=== PATIENT | female | born 1940 | race Caucasian/White ===

== ENCOUNTER → 2017-10-20 | Outpatient (CLI) | payer MEDICARE ==
--- NOTE | 2017-10-20 11:42 | USB ---
Reason for exam: clinical finding. History: Patient is postmenopausal and history of other cancer. Took estrogen for 1 year 6 months. Indicated problem(s): pain in the left breast. Physical Findings: Nurse Summary: Patient complains of left upper inner breast pain x 3 weeks, 0.5cm pea sized nodule palpated left breast 10 o'clock (nurse mj). US Breast LT Left complete breast ultrasound includes all four quadrants, the retroareolar region and axilla. Finding demonstrates a 4.4 x 0.8cm linear echogenic shadowing artifact/structure at 10 o'clock. It has the appearance of a foreign body. These results were verbally communicated with the patient and result sheet given to the patient on 10/20/17. ASSESSMENT: Incomplete: need additional imaging evaluation, BI-RAD 0 RECOMMENDATION: Special view mammogram of both breasts. Manage on a clinical basis with regard to bilateral breast pain.
== END | disposition home or self-care (01) ==
LOC: RADUSWWP 10:04
PROVIDERS: ATTEND Family Medicine
DX: R07.89 Other chest pain (principal)

== ENCOUNTER 2017-10-26 10:55 | Day surgery (SDC) | payer MEDICARE ==
[2017-10-22 17:14] VITALS: BMI 23.1
[~2017-10-26 10:55] MED LIST: SODIUM CHLORIDE 0.9% 1,000 ML IV SCH
[2017-10-26] MEDS ORDERED: ceFAZolin IN SWFI 2 GM/20 ML SYRINGE IVP ONE (11:00)
[2017-10-26 11:49] VITALS: TEMP 98.3
[2017-10-26] MEDS ORDERED: MIDAZOLAM 2 MG/2 ML VIAL IV ONE (12:45)
[2017-10-26] MEDS ORDERED: LIDOCAINE 1% INJ 10MG/ML (20 ML MDV) SQ ONE (13:02)
[2017-10-26] MEDS ORDERED: fentaNYL (PF) 50 MCG/ML 2 ML AMP IV ONE (13:05)
[2017-10-26] MEDS ORDERED: NITROGLYCERIN SL TABS 0.4 MG TAB SUBLINGUAL ONE (13:05)
[2017-10-26 15:43] VITALS: BP 118/62; PULSE 74; RESP 16
[2017-10-26] MEDS ORDERED: ceFAZolin 1,000 MG in DEXTROSE/WATER 1 50ML.BAG IVPB ONE (16:00)
--- NOTE | 2017-10-26 16:09 | PCN ---
PROCEDURE NOTE DATE OF SERVICE: 10/26/2017. PROCEDURES: Explantation of loop recorder. PERFORMED BY: Dr. Taqueria Camacho. ANESTHESIA: Moderate conscious sedation time was 27 minutes. The patient was administered Versed and fentanyl and oxygen saturation, hemodynamics and EKG were monitored closely. CLINICAL INFORMATION: Mrs. Rosalba Dodson is a 77-year-old lady with a history of hypertension, hyperlipidemia, dementia, and also previous history of syncope for which a loop recorder was placed. There was no evidence of any significant arrhythmia based on long- term monitoring. She has been having uncomfortable sensation overlying the site of the loop recorder and psychologically she did not want a foreign body in her system and so she wanted it taken out. After repeated explanations, she was brought in for the procedure. Risks, benefits, options were explained. PROCEDURE NOTE: Under local anesthesia and IV sedation and under fluoroscopic guidance, a linear inch and a half incision was made overlying the loop recorder. Blunt dissection was carried out and loop recorder was carefully explanted. The patient received intravenous antibiotic during the incision. The wound was then closed in 2 layers. Good hemostasis was secured. Patient tolerated procedure well without complication. Successful explantation of loop recorder was performed uneventfully without complication and with very trivial minimal blood loss. The patient will be seen in the office in one week. Patient will be administered antibiotic for 4 days, Kefzol 1 g will be given in about 4 hours and she will be given Keflex 500 mg t.i.d. for 3-4 days. MMODL / IJN: [id number] /
== END 2017-10-26 16:20 | disposition home or self-care (01) ==
LOC: CATHEP 10:55
PROVIDERS: ATTEND Internal Medicine Interventional Cardiology
DX: R55 Syncope and collapse (principal); I10 Essential (primary) hypertension; E78.5 Hyperlipidemia, unspecified; F03.90 Unspecified dementia, unspecified severity, without behavioral disturbance, psychotic disturbance, mood disturbance, and anxiety; Z88.1 Allergy status to other antibiotic agents
CPT/HCPCS: 33284; J2250; J2001; J3010; J0690 ×2

== ENCOUNTER 2018-01-29 09:14 | Emergency (ER) | payer MEDICARE ==
[2018-01-29 09:22] VITALS: TEMP 98
[2018-01-29] MEDS ORDERED: IBUPROFEN 400 MG TAB PO STA (09:37)
[2018-01-29] MEDS ORDERED: ACETAMINOPHEN TAB 500 MG TAB PO STA (09:37)
--- NOTE | 2018-01-29 09:40 | ED ---
General Adult HPI - General Chief complaint: Fall Stated complaint: fall at home yesterday; hx of hip surgery Time Seen by Provider: 01/29/18 09:19 Source: patient, family, RN notes reviewed Mode of arrival: ambulatory Limitations: no limitations - History of Present Illness Initial comments: Patient is a pleasant 77-year-old female presenting to the emergency department following a fall. Incident occurred yesterday evening. Patient was taken off her holiday sweater and lost her balance. Patient states she landed on her left hip. Patient states she was able to walk to the bathroom on her own last night however this morning she needs assistance. Discomfort is only with movement. Patient does have history of previous left ORIF of the hip. This was approximately 2 years ago. Patient denies any other area of injury. No head injury or loss of consciousness. No neck or back pain. No chest pain or dyspnea. No abdominal pain. - Related Data Home Medications Medication Instructions Recorded Confirmed Levothyroxine Sodium [Synthroid] 75 mcg PO DAILY 08/10/13 01/29/18 Aspirin EC [Ecotrin Low Dose] 81 mg PO HS 12/24/15 01/29/18 Atorvastatin [Lipitor] 80 mg PO HS 12/24/15 01/29/18 Cholecalciferol [Vitamin D3] 4,000 unit PO DAILY 12/24/15 01/29/18 Multivit with Calcium,Iron,Min 1 tab PO DAILY 10/22/17 01/29/18 [Women's Multivitamin] Allergies Allergy/AdvReac Type Severity Reaction Status Date / Time azithromycin AdvReac Nausea & Verified 01/29/18 09:28 [From Zithromax Z-Gomez] Vomiting INDOOR ENVIRONMENTAL Allergy Itching Uncoded 01/29/18 09:22 ALLERGIES Review of Systems ROS Statement: Those systems with pertinent positive or pertinent negative responses have been documented in the HPI. ROS Other: All systems not noted in ROS Statement are negative. Constitutional: Denies: fever Eyes: Denies: eye pain ENT: Denies: ear pain Respiratory: Denies: cough Cardiovascular: Denies: chest pain Endocrine: Denies: fatigue Gastrointestinal: Denies: abdominal pain Genitourinary: Denies: dysuria Musculoskeletal: Denies: back pain Skin: Denies: rash Neurological: Denies: headache, weakness Past Medical History Past Medical History: CVA/TIA, Memory Impairment, Thyroid Disorder Additional Past Medical History / Comment(s): chronic back pain, had stroke during back surgery-affected memory, chronic diarrhea, balance wobbly since hip surgery Last Myocardial Infarction Date:: 2014 History of Any Multi-Drug Resistant Organisms: None Reported Past Surgical History: Appendectomy, Back Surgery, Orthopedic Surgery, Tonsillectomy Additional Past Surgical History / Comment(s): shoulder skin ca, knee surgery to left, ORIF left hip 2015, loop recorder insertion Past Anesthesia/Blood Transfusion Reactions: Postoperative Nausea & Vomiting ( PONV) Additional Past Anesthesia/Blood Transfusion Reaction / Comment(s): claustrophobia, trouble waking up Past Psychological History: No Psychological Hx Reported Smoking Status: Current every day smoker Past Alcohol Use History: Daily Past Drug Use History: None Reported - Past Family History Mother Family Medical History: Renal Disease Father Family Medical History: Cancer Additional Family Medical History / Comment(s): skin cancer, at age 93 from old age General Exam Limitations: no limitations General appearance: alert, in no apparent distress Head exam: Present: atraumatic, normocephalic Eye exam: Present: normal appearance Neck exam: Present: normal inspection. Absent: tenderness Respiratory exam: Present: normal lung sounds bilaterally Cardiovascular Exam: Present: regular rate, normal rhythm Expanded Peripheral pulses: 2+: Posterior Tibialis (R), Posterior Tibialis (L), Dorsalis Pedis (L) GI/Abdominal exam: Present: soft. Absent: tenderness Extremities exam: Present: tenderness (Tenderness left lateral hip), other ( Distally the extremity is neurovascularly intact. Cap refill less than 2 seconds. Pedal pulses present. Good strength. Sensation intact.) Back exam: Present: normal inspection. Absent: tenderness Neurological exam: Present: alert. Absent: motor sensory deficit Psychiatric exam: Present: normal affect, normal mood Skin exam: Present: normal color. Absent: rash Course Vital Signs 01/29/18 09:19 Temperature 98 F Pulse Rate 79 Respiratory 20 Rate Blood Pressure 156/88 O2 Sat by Pulse 97 Oximetry Medical Decision Making - Medical Decision Making Patient reevaluated and resting comfortably in bed. Patient is able to get up and and really with only mild discomfort. Patient and family are updated on results. Patient requesting discharge. - Radiology Data Radiology results: image reviewed (X-ray of the left hip and pelvis show no acute process) Disposition Clinical Impression: Fall, Contusion, hip Disposition: HOME SELF-CARE Condition: Stable Instructions: Hip Sprain (ED) Additional Instructions: [id number] Tylenol and Motrin as needed. Please follow-up with primary care physician in the next couple days for recheck. Return for increased pain, unable to ambulate, swelling, worsening symptoms or other concerns. Is patient prescribed a controlled substance at d/c from ED?: No Referrals: Angelica Gregory MD [STAFF PHYSICIAN] - 1-2 days Time of Disposition: 10:59
--- NOTE | 2018-01-29 10:04 | XR ---
EXAMINATION TYPE: XR Hip LT and AP Pelvis , 3 VIEWS DATE OF EXAM ORDERED: 01/29/2018 HISTORY: Pain. COMPARISON: None. FINDINGS: There has been an extensive interpedicular fusion of the lower lumbar spine. There is a le ft hip hemiarthroplasty in place. Prosthetic elements appear in good position. No fracture or disloca tion is seen. A metallic density projects over the inferior pubic ramus on the right. This may relate to previous ligamentous surgery. IMPRESSION: 1. NO ACUTE OSSEOUS LESION. 2. EXTENSIVE POSTSURGICAL CHANGE.
[2018-01-29 11:06] VITALS: BP 157/72; PULSE 76; RESP 18
== END 2018-01-29 11:04 | disposition home or self-care (01) ==
LOC: EC 09:14
DX: S70.02XA Contusion of left hip, initial encounter (principal); E07.9 Disorder of thyroid, unspecified; G89.29 Other chronic pain; I69.811 Memory deficit following other cerebrovascular disease; F17.200 Nicotine dependence, unspecified, uncomplicated; Z88.1 Allergy status to other antibiotic agents; Z91.048 Other nonmedicinal substance allergy status; Z79.82 Long term (current) use of aspirin; Z79.899 Other long term (current) drug therapy; Z85.828 Personal history of other malignant neoplasm of skin; Z98.890 Other specified postprocedural states; W01.0XXA Fall on same level from slipping, tripping and stumbling without subsequent striking against object, initial encounter; Y93.89 Activity, other specified; Y92.009 Unspecified place in unspecified non-institutional (private) residence as the place of occurrence of the external cause
CPT/HCPCS: 73502; 99283

== ENCOUNTER 2018-02-06 15:27 | Emergency (ER) | payer MEDICARE ==
[2018-02-06] MEDS ORDERED: ACETAMINOPHEN TAB 325 MG TAB PO STA (16:08)
[2018-02-06 16:15] VITALS: RESP 18
--- NOTE | 2018-02-06 17:38 | ED ---
General Adult HPI - General Chief complaint: Extremity Injury, Lower Stated complaint: Fall Source: patient, RN notes reviewed, old records reviewed Mode of arrival: ambulatory Limitations: no limitations - History of Present Illness Initial comments: 77-year-old female patient with past history of dementia, ORIF of left hip first year with left-sided pain. Patient was seen and evaluated on 01/29 after she suffered a fall resulting in some pain in her left hip. Patient was evaluated at this hospital and had plain films displayed no fracture. Patient denied any trauma to head or neck recent blood thinners in this fall. Patient was discharged and instructed to use, Motrin to control symptoms. Patient returns to ED today with continued pain in left hip. Patient denies any other falls since she was evaluated on 01/29. Patient denies any other symptoms besides left hip pain. Patient presents ED primarily for continued evaluation and reassurance that she does not have a fracture that was not initially identified. Patient denies chest pain, shortness breath, headache, changes in vision, abdominal pain, any other symptoms. Systemic: Pt denies fatigue, myalgia, fever/chills, rash. Pt denies weakness, night sweats, weight loss. Neuro: Pt denies headache, visual disturbances, syncope or pre-syncope. HEENT: Pt denies ocular discharge or irritation, otalgia, rhinorrhea, pharyngitis or notable lymphadenopathy. Cardiopulmonary: Pt denies chest pain, SOB, heart palpitations, dyspnea on exertion. Abdominal/GI: Pt denies abdominal pain, n/v/d. : Pt denies dysuria, burning w/ urination, frequency/urgency. Denies new onset urinary or bowel incontinence. MSK: Pt denies myalgia, loss of strength or function in extremities. Neuro: Pt denies new onset weakness, paresthesias. - Related Data Home Medications Medication Instructions Recorded Confirmed Levothyroxine Sodium [Synthroid] 75 mcg PO DAILY 08/10/13 01/29/18 Aspirin EC [Ecotrin Low Dose] 81 mg PO HS 12/24/15 01/29/18 Atorvastatin [Lipitor] 80 mg PO HS 12/24/15 01/29/18 Cholecalciferol [Vitamin D3] 4,000 unit PO DAILY 12/24/15 01/29/18 Multivit with Calcium,Iron,Min 1 tab PO DAILY 10/22/17 01/29/18 [Women's Multivitamin] Previous Rx's Medication Instructions Recorded Ibuprofen 400 mg PO Q8HR 5 Days #15 tablet 02/06/18 Allergies Allergy/AdvReac Type Severity Reaction Status Date / Time azithromycin AdvReac Nausea & Verified 01/29/18 09:28 [From Zithromax Z-Gomez] Vomiting INDOOR ENVIRONMENTAL Allergy Itching Uncoded 01/29/18 09:22 ALLERGIES Review of Systems ROS Statement: Those systems with pertinent positive or pertinent negative responses have been documented in the HPI. ROS Other: All systems not noted in ROS Statement are negative. Past Medical History Past Medical History: CVA/TIA, Memory Impairment, Thyroid Disorder Additional Past Medical History / Comment(s): chronic back pain, had stroke during back surgery-affected memory, chronic diarrhea, balance wobbly since hip surgery Last Myocardial Infarction Date:: 2014 History of Any Multi-Drug Resistant Organisms: None Reported Past Surgical History: Appendectomy, Back Surgery, Orthopedic Surgery, Tonsillectomy Additional Past Surgical History / Comment(s): shoulder skin ca, knee surgery to left, ORIF left hip 2015, loop recorder insertion Past Anesthesia/Blood Transfusion Reactions: Postoperative Nausea & Vomiting ( PONV) Additional Past Anesthesia/Blood Transfusion Reaction / Comment(s): claustrophobia, trouble waking up Past Psychological History: No Psychological Hx Reported Smoking Status: Current every day smoker Past Alcohol Use History: Daily Past Drug Use History: None Reported - Past Family History Mother Family Medical History: Renal Disease Father Family Medical History: Cancer Additional Family Medical History / Comment(s): skin cancer, at age 93 from old age General Exam - General Exam Comments Initial Comments: Constitutional: NAD, AOX3, Pt has pleasant affect. HEENT: NC/AT, trachea midline, neck supple, no lymphadenopathy. Posterior pharynx non erythematous, without exudates. External ears appear normal, without discharge. Mucous membranes moist. Eyes PERRLA, EOM intact. There is no scleral icterus. No pallor noted. Cardiopulmonary: RRR, no murmurs, rubs or gallops, no JVD noted. Lungs CTAB in anterior and posterior landis. No peripheral edema. Abdominal exam: Abdomen soft and non-distended. Abdomen non-tender to palpation in all 4 quadrants. Bowel sounds active in LLQ. No hepatosplenomegaly. No ecchymosis Neuro: CN II-XII grossly intact. No nuchal rigidity. MSK: Hips bilaterally nontender to palpation, fever and nontender to palpation, knees nontender palpation, tibia/fibula nontender to palpation, ankle/foot nontender to palpation. Full passive flexion/extension of knee / hip bilaterally without pain. Pt has pain with posterior L hip with ambulation. Pt is able to ambulate with mild pain in L hip. Sensation intact. Patient able to left left lower extremity with some pain in head. Patient able to lift right lower extremity without difficulty. Patient is ambulatory with pain in left hip. No posterior calf tenderness bilaterally, homans sign negative bilaterally. Posterior tibialis and radial pulse +2 bilaterally. Sensation intact in upper and lower extremities. Full active ROM in upper and lower extremities, 5/5 stregnth. Limitations: no limitations Course Vital Signs 02/06/18 02/06/18 16:09 18:03 Temperature 98.0 F Pulse Rate 75 74 Respiratory 18 18 Rate Blood Pressure 162/85 177/83 O2 Sat by Pulse 97 94 L Oximetry Medical Decision Making - Medical Decision Making 77-year-old female patient with past history of dementia, ORIF of left hip first year with left-sided pain. Patient was seen and evaluated on 01/29 after she suffered a fall resulting in some pain in her left hip. Patient was evaluated at this hospital and had plain films displayed no fracture. Patient denied any trauma to head or neck recent blood thinners in this fall. Patient was discharged and instructed to use, Motrin to control symptoms. Patient returns to ED today with continued pain in left hip. Patient denies any other falls since she was evaluated on 01/29. Patient denies any other symptoms besides left hip pain. Patient presents ED primarily for continued evaluation and reassurance that she does not have a fracture that was not initially identified. Patient denies chest pain, shortness breath, headache, changes in vision, abdominal pain, any other symptoms. Physical exam displays Hips bilaterally nontender to palpation, fever and nontender to palpation, knees nontender palpation, tibia/fibula nontender to palpation, ankle/foot nontender to palpation. Full passive flexion/extension of knee / hip bilaterally without pain. Pt has pain with posterior L hip with ambulation. Pt is able to ambulate with mild pain in L hip. CT of left femur displayed no acute abnormality, no acute fracture. Sacroiliac joint intact. Patient diagnosed with contusion. Patient to use Motrin 400 TID to control pain, decreased inflammation. Patient given referral to orthopedic surgeon to follow up with one to 2 days. Patient to follow-up with PCP in 1-2 days. Case discussed and patient seen with Dr. Posey. Patient to return to ED if any signs or symptoms develop. Disposition Clinical Impression: Contusion Disposition: HOME SELF-CARE Condition: Good Instructions: Hip Contusion (ED) Additional Instructions: Patient to adhere to previously discussed treatment plan and will take medication(s) as directed. Patient to follow up with PCP in 1-2 days. Patient to return to ED if symptoms do not improve. Prescriptions: Ibuprofen 400 mg PO Q8HR 5 Days #15 tablet Is patient prescribed a controlled substance at d/c from ED?: No Referrals: Gwendolyn Florez MD [Primary Care Provider] - 1-2 days Time of Disposition: 18:30
--- NOTE | 2018-02-06 17:39 | CT ---
EXAMINATION TYPE: CT femur LT wo con DATE OF EXAM: 02/06/2018 COMPARISON: None HISTORY: left hip pain following fall CT DLP: 575.1 mGycm Automated exposure control for dose reduction was used. FINDINGS: Multiple axial sections were obtained from the mid ileum to the distal femur with no contrast. There is left hip prosthesis. Components appear in anatomic position. I see no sign of loosening. I s ee no fracture. There is no evidence of focal bony destructive process. There is no evidence of soft tissue mass. Sacroiliac joint appears intact. There is vascular calcification. Acetabulum is intact. IMPRESSION: NO ACUTE ABNORMALITY OF THE LEFT FEMUR. NO FRACTURE SEEN.
[2018-02-06] MEDS ORDERED: KETOROLAC 60 MG/2 ML VIAL IM STA (18:05)
[2018-02-06 18:53] VITALS: BP 171/80; PULSE 76; TEMP 98.4
== END 2018-02-06 18:50 | disposition home or self-care (01) ==
LOC: EC 15:27
DX: S70.02XA Contusion of left hip, initial encounter (principal); E07.9 Disorder of thyroid, unspecified; I25.2 Old myocardial infarction; F17.200 Nicotine dependence, unspecified, uncomplicated; Z98.890 Other specified postprocedural states; Z85.828 Personal history of other malignant neoplasm of skin; Z86.73 Personal history of transient ischemic attack (TIA), and cerebral infarction without residual deficits; Z79.82 Long term (current) use of aspirin; Z79.899 Other long term (current) drug therapy; Z88.1 Allergy status to other antibiotic agents; Z91.048 Other nonmedicinal substance allergy status; W19.XXXA Unspecified fall, initial encounter
CPT/HCPCS: 99284 ×2; 96372 ×2; 73700; J1885

== ENCOUNTER 2019-11-12 20:08 | Inpatient (IN) | payer MEDICARE ==
[2019-11-12] MEDS ORDERED: SODIUM CHLORIDE 0.9% 1,000 ML IV ONE (20:17)
--- NOTE | 2019-11-12 20:31 | ED ---
Fall HPI - General Chief Complaint: Fall Stated Complaint: Fall Time Seen by Provider: 11/12/19 20:10 Source: patient, family, EMS Mode of arrival: ambulatory - History of Present Illness Initial Comments: This is a 70-year-old female who fell in her home just prior to arrival. Her heard her hit the floor patient has no recall this. She initially was somewhat confused when initially found however she did back to normal mental baseline. She sustained a laceration to left amish area she complains also of left hip pain. No neck pain. No back pain no other injury noted. Does have a history of left hip surgery. She denied any palpitations or chest pain no preci pitating factor for the fall he fell onto carpet MD Complaint: fall - Related Data Home Medications Medication Instructions Recorded Confirmed Levothyroxine Sodium [Synthroid] 75 mcg PO DAILY 08/10/13 01/29/18 Aspirin EC [Ecotrin Low Dose] 81 mg PO HS 12/24/15 01/29/18 Atorvastatin [Lipitor] 80 mg PO HS 12/24/15 01/29/18 Cholecalciferol [Vitamin D3] 4,000 unit PO DAILY 12/24/15 01/29/18 Multivit with Calcium,Iron,Min 1 tab PO DAILY 10/22/17 01/29/18 [Women's Multivitamin] Previous Rx's Medication Instructions Recorded Ibuprofen 400 mg PO Q8HR 5 Days #15 tablet 02/06/18 Allergies Allergy/AdvReac Type Severity Reaction Status Date / Time azithromycin AdvReac Nausea & Verified 11/12/19 20:15 [From Zithromax Z-Gomez] Vomiting INDOOR ENVIRONMENTAL Allergy Itching Uncoded 11/12/19 20:15 ALLERGIES Review of Systems ROS Statement: Those systems with pertinent positive or pertinent negative responses have been documented in the HPI. ROS Other: All systems not noted in ROS Statement are negative. Limitations: ROS unobtainable due to patients medical condition Past Medical History Past Medical History: CVA/TIA, Memory Impairment, Thyroid Disorder Additional Past Medical History / Comment(s): chronic back pain, had stroke during back surgery-affected memory, chronic diarrhea, balance wobbly since hip surgery Last Myocardial Infarction Date:: 2014 History of Any Multi-Drug Resistant Organisms: None Reported Past Surgical History: Appendectomy, Back Surgery, Orthopedic Surgery, Tonsillectomy Additional Past Surgical History / Comment(s): shoulder skin ca, knee surgery to left, ORIF left hip 2016, loop recorder insertion Past Anesthesia/Blood Transfusion Reactions: Postoperative Nausea & Vomiting (PONV) Additional Past Anesthesia/Blood Transfusion Reaction / Comment(s): claustrophobia, trouble waking up Past Psychological History: No Psychological Hx Reported Smoking Status: Current every day smoker Past Alcohol Use History: Daily Past Drug Use History: None Reported - Past Family History Mother Family Medical History: Renal Disease Father Family Medical History: Cancer Additional Family Medical History / Comment(s): skin cancer, at age 93 from old age General Exam - General Exam Comments Initial Comments: This is a well-developed asthenic appearing female who is awake alert oriented 3 at this time. She does have a cervical collar in place her current Bly Coma Scale is 15 Limitations: no limitations General appearance: alert, anxious Head exam: Present: normocephalic, other (Laceration of the left lateral orbit over the zygomatic arch asked me 3 cm no step-off no crepitation no active bleeding at this time.) Eye exam: Present: normal appearance, PERRL, EOMI. Absent: scleral icterus, conjunctival injection, periorbital swelling ENT exam: Present: normal exam, mucous membranes moist Neck exam: Present: normal inspection, other (C collar in place). Absent: tenderness Respiratory exam: Present: normal lung sounds bilaterally. Absent: respiratory distress, wheezes, rales, rhonchi, stridor Cardiovascular Exam: Present: regular rate, normal rhythm, normal heart sounds. Absent: systolic murmur, diastolic murmur, rubs, gallop, clicks GI/Abdominal exam: Present: soft, normal bowel sounds. Absent: distended, tenderness, guarding, rebound, rigid Rectal exam: Present: deferred Extremities exam: Present: other (Tennis palpation of left hip with evidence of subluxation. Additionally there is edema and ecchymosis to the left elbow no definite deformity she does demonstrate full range of motion). Absent: normal inspection, full ROM Back exam: Present: normal inspection Neurological exam: Present: alert, oriented X3, CN II-XII intact Psychiatric exam: Present: normal affect, normal mood Skin exam: Present: warm, dry, intact, normal color. Absent: rash Course Vital Signs 11/12/19 11/12/19 11/12/19 20:09 20:32 21:15 Temperature 97.7 F Pulse Rate 72 70 77 Respiratory 16 18 20 Rate Blood Pressure 174/84 155/78 157/82 O2 Sat by Pulse 98 97 98 Oximetry - Reevaluation(s) Reevaluation #1: 11/12/19 20:59 The patient's care will be endorsed to Dr. Mills at our shift change Reevaluation #2: 11/12/19 21:44 I did reevaluate the patient is awake alert oriented she does have a history of dementia with intact remote memory but questionable. I did discuss the findings also the patient's he did give the exact history of what happened it appears be a mechanical fall. Medical Decision Making - Medical Decision Making I did discuss the findings with the patient as well as her and with her son who is an emergency physician in [place]. Patient be admitted to this facility case was discussed with Dr. Barroso who has requested admission to medicine with him and consultation as this is a nonoperative fracture. Patient will require rehabilitation. Case is discussed with Dr. Merritt who is covering for Dr. Harper who is covering for Dr. Hope who the family has requested - Lab Data Result diagrams: 11/12/19 20:30 11/12/19 20:30 Lab Results 11/12/19 11/12/19 11/12/19 Range/Units 20:30 20:30 20:30 WBC 11.9 H (3.8-10.6) k/uL RBC 4.55 (3.80-5.40) m/uL Hgb 13.7 (11.4-16.0) gm/dL Hct 42.1 (34.0-46.0) % MCV 92.6 (80.0-100.0) fL MCH 30.1 (25.0-35.0) pg MCHC 32.5 (31.0-37.0) g/dL RDW 14.5 (11.5-15.5) % Plt Count 193 (150-450) k/uL Neutrophils % 71 % Lymphocytes % 23 % Monocytes % 3 % Eosinophils % 1 % Basophils % 1 % Neutrophils # 8.4 H (1.3-7.7) k/uL Lymphocytes # 2.7 (1.0-4.8) k/uL Monocytes # 0.4 (0-1.0) k/uL Eosinophils # 0.2 (0-0.7) k/uL Basophils # 0.1 (0-0.2) k/uL PT 10.0 (9.0-12.0) sec INR 1.0 (<1.2) Sodium 131 L (137-145) mmol/L Potassium 3.5 (3.5-5.1) mmol/L Chloride 104 (98-107) mmol/L Carbon Dioxide 21 L (22-30) mmol/L Anion Gap 6 mmol/L BUN 16 (7-17) mg/dL Creatinine 0.66 (0.52-1.04) mg/dL Est GFR (CKD-EPI)AfAm >90 (>60 ml/min/1.73 sqM) Est GFR (CKD-EPI)NonAf 84 (>60 ml/min/1.73 sqM) Glucose 98 (74-99) mg/dL Calcium 8.9 (8.4-10.2) mg/dL Total Bilirubin 0.5 (0.2-1.3) mg/dL AST 31 (14-36) U/L ALT 18 (4-34) U/L Alkaline Phosphatase 66 (38-126) U/L Total Protein 5.9 L (6.3-8.2) g/dL Albumin 3.6 (3.5-5.0) g/dL - EKG Data -: EKG Interpreted by Me EKG Comments: Sinus rhythm with occasional PVC with anterior fascicular block nonspecific ST-T wave configuration rate 70 RI interval 190 QRS duration 94 QT since QTC 460/449 - Radiology Data Radiology results: report reviewed (I did review the imaging and reports a left pubic ramus fracture inferior and superior the hip is intact however. No other fractures noted on CAT scans or x-rays. Some fluid in the left maxillary sinus.), image reviewed Disposition Clinical Impression: Fracture of left pelvis, Facial hematoma, Facial laceration, Fall, Traumatic hematoma of left elbow Disposition: ADMITTED IP TO THIS HOSP Condition: Fair Referrals: Gwendolyn Florez MD [Primary Care Provider] - 1-2 days
[2019-11-12 20:42] LABS: Basophils # (A) 0.1 k/uL (0-0.2); Basophils % (A) 1 %; Eosinophils # (A) 0.2 k/uL (0-0.7); Eosinophils % (A) 1 %; HCT 42.1 % (34.0-46.0); HGB 13.7 gm/dL (11.4-16.0); Lymphocytes # (A) 2.7 k/uL (1.0-4.8); Lymphocytes % (A) 23 %; MCH 30.1 pg (25.0-35.0); MCHC 32.5 g/dL (31.0-37.0); MCV 92.6 fL (80.0-100.0); Mean Platelet Volume 6.6; Monocytes # (A) 0.4 k/uL (0-1.0); Monocytes % (A) 3 %; Neutrophils # (A) 8.4 k/uL (1.3-7.7); Neutrophils % (A) 71 %; Platelet Count 193 k/uL (150-450); RBC 4.55 m/uL (3.80-5.40); RDW 14.5 % (11.5-15.5); WBC 11.9 k/uL (3.8-10.6)
[2019-11-12 20:53] LABS: ALT 18 U/L (4-34); AST 31 U/L (14-36); African American GFR (CKD) >90 (>60 ml/min/1.73 sqM); Albumin 3.6 g/dL (3.5-5.0); Alkaline Phosphatase 66 U/L (38-126); Anion Gap 6 mmol/L; Blood Urea Nitrogen 16 mg/dL (7-17); Calcium 8.9 mg/dL (8.4-10.2); Carbon Dioxide 21 mmol/L (22-30); Chloride 104 mmol/L (98-107); Glucose 98 mg/dL (74-99); Non-African American GFR(CKD) 84 (>60 ml/min/1.73 sqM); Potassium 3.5 mmol/L (3.5-5.1); Sodium 131 mmol/L (137-145); Total Bilirubin 0.5 mg/dL (0.2-1.3); Total Protein 5.9 g/dL (6.3-8.2)
--- NOTE | 2019-11-12 20:59 | CT ---
EXAMINATION TYPE: CT brain alvaro veloz DATE OF EXAM: 11/12/2019 COMPARISON: None HISTORY: fall, left side facial contusions CT DLP: 1031.6 mGycm Automated exposure control for dose reduction was used. There is diffuse cerebral cortical atrophy. There is patchy hypodensity in the periventricular white matter. There is no mass effect nor midline shift. There is no sign of intracranial hemorrhage. There is large left frontal parietal scalp hematoma. There is left side periorbital hematoma. Calvarium ap pears intact. Cervical vertebra have minimal subluxation deformity at C3-4 and C4-5. There is disc sp shyla narrowing in the mid and lower cervical spine. There is multilevel hypertrophic facet arthropathy . The skull base is intact. There is normal aeration of the mastoid sinuses. Occipital bone is intact . IMPRESSION: Cerebral atrophy and chronic small vessel ischemia. Left frontal and left side periorbital hematoma. Spondylotic changes in the cervical spine. No fracture seen.
--- NOTE | 2019-11-12 21:04 | CT ---
EXAMINATION TYPE: CT facial bones wo con DATE OF EXAM: 11/12/2019 COMPARISON: None HISTORY: fall, left side facial contusions CT DLP: 772.1 mGycm Automated exposure control for dose reduction was used. Images were obtained from the bottom of the mandible to the top of the frontal sinuses without contra st. There is fluid level in the left maxillary sinus. The zygomatic arches appear normal. I do not see ev idence of a maxillary fracture. There is bilateral patency of the ostiomeatal complex. I see no evide nce of a blowout fracture. The floor the left bony orbit is intact. There is significant soft tissue swelling anterior to the left zygoma and lateral to the left orbit. The orbital margins are intact. The mandibular ring is intact. Temporomandibular joints appear intact. Zygomatic arches appear normal . IMPRESSION: Left side periorbital and maxillary soft tissue swelling and hematoma. No fracture seen. Fluid level in the left maxillary sinus could relate to hemorrhage.
--- NOTE | 2019-11-12 21:11 | XR ---
EXAMINATION TYPE: XR elbow complete LT DATE OF EXAM: 11/12/2019 COMPARISON: NONE HISTORY: Fall. Pain. TECHNIQUE: 3 views FINDINGS: I see no fracture nor dislocation. There is soft tissue swelling over the olecranon process of the ulna. There is no sign of elbow joint effusion. IMPRESSION: Posterior soft tissue swelling. No fracture seen. This is probably subcutaneous hematoma.
--- NOTE | 2019-11-12 21:23 | XR ---
EXAMINATION TYPE: XR Hip LT and AP Pelvis DATE OF EXAM: 11/12/2019 COMPARISON: 01/29/2018 HISTORY: Fall. Pain. TECHNIQUE: 3 views FINDINGS: There are fractures of the left superior and inferior pubic rami. There is displacement up to 5 mm of the fragments. There is left hip prosthesis. There is no dislocation. The sacroiliac joint s appear intact. IMPRESSION: Acute fractures of the left pubic rami.
--- NOTE | 2019-11-12 21:24 | XR ---
EXAMINATION TYPE: XR chest 1V portable DATE OF EXAM: 11/12/2019 COMPARISON: 12/24/2015 HISTORY: Fall. Pain. TECHNIQUE: FINDINGS: Heart is normal. Lungs are clear of infiltrate. Thoracic aorta is atheromatous. There are c hest leads. There are no hilar masses. IMPRESSION: No active cardiopulmonary disease. No change.
[2019-11-12] MEDS ORDERED: TOPICAL SKIN ADHESIVE 1 EACH AMP TOPICAL ONE (21:50)
[2019-11-12] MEDS ORDERED: HYDROmorphone 0.5 MG/0.5 ML SYRINGE IVP PRN (21:52)
[2019-11-12] MEDS ORDERED: NALOXONE 0.4 MG/ML 1 ML VIAL IV PRN (21:52)
[2019-11-12] MEDS ORDERED: DIPH,PERTUS(ACELL)TETVAC-LF 0.5 ML VIAL IM ONE (21:55)
[2019-11-12] MEDS: SODIUM CHLORIDE 0.9% 1,000 ML IV SCH (22:38)
[2019-11-12] MEDS: ACETAMINOPHEN TAB 325 MG TAB PO PRN (23:37)
--- NOTE | 2019-11-13 02:45 | ED ---
Medical Decision Making - Lab Data Result diagrams: 11/12/19 20:30 11/12/19 20:30 Lab Results 11/12/19 11/12/19 11/12/19 Range/Units 20:30 20:30 20:30 WBC 11.9 H (3.8-10.6) k/uL RBC 4.55 (3.80-5.40) m/uL Hgb 13.7 (11.4-16.0) gm/dL Hct 42.1 (34.0-46.0) % MCV 92.6 (80.0-100.0) fL MCH 30.1 (25.0-35.0) pg MCHC 32.5 (31.0-37.0) g/dL RDW 14.5 (11.5-15.5) % Plt Count 193 (150-450) k/uL Neutrophils % 71 % Lymphocytes % 23 % Monocytes % 3 % Eosinophils % 1 % Basophils % 1 % Neutrophils # 8.4 H (1.3-7.7) k/uL Lymphocytes # 2.7 (1.0-4.8) k/uL Monocytes # 0.4 (0-1.0) k/uL Eosinophils # 0.2 (0-0.7) k/uL Basophils # 0.1 (0-0.2) k/uL PT 10.0 (9.0-12.0) sec INR 1.0 (<1.2) Sodium 131 L (137-145) mmol/L Potassium 3.5 (3.5-5.1) mmol/L Chloride 104 (98-107) mmol/L Carbon Dioxide 21 L (22-30) mmol/L Anion Gap 6 mmol/L BUN 16 (7-17) mg/dL Creatinine 0.66 (0.52-1.04) mg/dL Est GFR (CKD-EPI)AfAm >90 (>60 ml/min/1.73 sqM) Est GFR (CKD-EPI)NonAf 84 (>60 ml/min/1.73 sqM) Glucose 98 (74-99) mg/dL Calcium 8.9 (8.4-10.2) mg/dL Total Bilirubin 0.5 (0.2-1.3) mg/dL AST 31 (14-36) U/L ALT 18 (4-34) U/L Alkaline Phosphatase 66 (38-126) U/L Total Protein 5.9 L (6.3-8.2) g/dL Albumin 3.6 (3.5-5.0) g/dL Disposition Clinical Impression: Fracture of left pelvis, Facial hematoma, Facial laceration, Fall, Traumatic hematoma of left elbow Disposition: ADMITTED IP TO THIS HOSP Condition: Fair Is patient prescribed a controlled substance at d/c from ED?: No Procedures - Laceration Laceration #1 Consent Obtained: verbal consent Indication: laceration Site: face Size (cm): 3 Description: linear Depth: simple, single layer Pre-repair: irrigated extensively Type of Sutures: other (exofin skin glue ) Patient Tolerated Procedure: well, no complications
[2019-11-13] MEDS ORDERED: LEVOTHYROXINE 75 MCG TAB PO SCH (06:30)
[2019-11-13] MEDS: CHOLECALCIFEROL 1,000 UNIT TAB PO SCH (07:53)
[2019-11-13] MEDS: MULTIVITAMINS, THERA 1 EACH TAB PO SCH (07:53)
[2019-11-13] MEDS: ACETAMINOPHEN TAB 325 MG TAB PO PRN (07:53)
--- NOTE | 2019-11-13 10:16 | XR ---
EXAMINATION TYPE: XR wrist complete LT DATE OF EXAM: 11/13/2019 CLINICAL HISTORY: Fall injury yesterday with pain. TECHNIQUE: Frontal, lateral, scaphoid, and oblique images of the left wrist are obtained. COMPARISON: None FINDINGS: Osseous structures are demineralized. Overlying peripheral IV catheter noted. Moderate to s evere narrowing with heterotopic ossification at base of first metacarpal. Widening of the distal sca phoid space articulating with the trapezium suggesting remote ligamentous injury. Moderate narrowing and spurring trapezium articulation distal carpal row with trapezoid. No acute fracture is evident. IMPRESSION: There is no acute fracture or dislocation in the left wrist.
[2019-11-13] MEDS ORDERED: HYDROcodone/APAP 5-325MG 1 EACH TAB PO PRN (10:38)
[2019-11-13] MEDS: HYDROcodone/APAP 5-325MG 1 EACH TAB PO PRN ×2 (11:16→19:36)
[2019-11-13] MEDS: SODIUM CHLORIDE 0.9% 1,000 ML IV SCH (11:18)
[2019-11-13] MEDS ORDERED: DIPHENOX-ATROP 2.5-0.025 MG 1 EACH TAB PO PRN (11:59)
[2019-11-13] MEDS ORDERED: LACTOBACILLUS ACIDOPH & BULGAR 1 EACH PACKET PO PRN (11:59)
--- NOTE | 2019-11-13 12:14 | P.CNOR ---
History of Present Illness - [facility] Consult date: 11/13/19 Consult reason: fracture History of present illness: Patient is a 70-year-old female seen at bedside this morning in consultation for left pubic rami fractures, left wrist injury. She states she fell at her home y and landed on her left side. She was transported to the emergency department via EMS. She states she has pain at the left hip and left wrist. X- rays in the emergency department show superior and inferior pubic rami fractures on the left. X-rays of the left elbow were negative. X-rays taken today of the left wrist are negative for acute fracture. She has no other complaints this morning. She denies numbness or tingling. She has no dizziness, headaches, fever, chills, chest pain, shortness breath, nausea, vomiting, slurred speech, vision changes or other. Review of Systems All systems: negative Constitutional: Denies chills, Denies fever Eyes: denies blurred vision, denies pain Ears, nose, mouth and throat: Denies headache, Denies sore throat Cardiovascular: Denies chest pain, Denies shortness of breath Respiratory: Denies cough Gastrointestinal: Denies abdominal pain, Denies diarrhea, Denies nausea, Denies vomiting Genitourinary: Denies dysuria, Denies hematuria Musculoskeletal: Denies myalgias Integumentary: Denies pruritus, Denies rash Neurological: Denies numbness, Denies weakness Psychiatric: Denies anxiety, Denies depression Endocrine: Denies fatigue, Denies weight change Past Medical History Past Medical History: CVA/TIA, Memory Impairment, Thyroid Disorder Additional Past Medical History / Comment(s): chronic back pain, had stroke during back surgery-affected memory; balance wobbly since hip surgery Last Myocardial Infarction Date:: 2014 History of Any Multi-Drug Resistant Organisms: None Reported Past Surgical History: Appendectomy, Back Surgery, Orthopedic Surgery, T onsillectomy Additional Past Surgical History / Comment(s): shoulder skin ca, knee surgery to left, ORIF left hip 2015, loop recorder insertion Past Anesthesia/Blood Transfusion Reactions: Postoperative Nausea & Vomiting (PONV) Additional Past Anesthesia/Blood Transfusion Reaction / Comm: claustrophobia, trouble waking up Past Psychological History: No Psychological Hx Reported Smoking Status: Current every day smoker Past Alcohol Use History: Daily Additional Past Alcohol Use History / Comment(s): started smoking at age 19 currently smoked 1/2 -3/4 ppd. drinks 1 manhattan per day Past Drug Use History: None Reported - Past Family History Mother Family Medical History: Renal Disease Father Family Medical History: Cancer Additional Family Medical History / Comment(s): skin cancer, at age 93 from old age Medications and Allergies Home Medications Medication Instructions Recorded Confirmed Type Aspirin EC [Ecotrin Low Dose] 81 mg PO HS 12/24/15 11/12/19 History Atorvastatin [Lipitor] 80 mg PO HS 12/24/15 11/12/19 History Cholecalciferol [Vitamin D3] 1,000 unit PO DAILY 12/24/15 11/12/19 History Multivit with Calcium,Iron,Min 1 tab PO DAILY 10/22/17 11/12/19 History [Women's Multivitamin] Diphenox-Atrop 2.5-0.025 mg 2 tab PO QID PRN 11/12/19 11/12/19 History [Lomotil] L.acidoph,Paracasei, B.lactis 1 cap PO DAILY PRN 11/12/19 11/12/19 History [Probiotic] Levothyroxine Sodium [Synthroid] 88 mcg PO DAILY 11/12/19 11/12/19 History Allergies Allergy/AdvReac Type Severity Reaction Status Date / Time azithromycin AdvReac Nausea & Verified 11/12/19 22:06 [From Zithromax Z-Gomez] Vomiting INDOOR ENVIRONMENTAL Allergy Itching Uncoded 11/12/19 20:15 ALLERGIES Physical Examination inspection of the pelvis and left lower Hernandez show no deformity, wounds, erythema or ecchymosis. Minimal range of motion of the left hip reproduces left hip pain. She has no pain with range of motion of the knee, ankle and foot. Ne urovascular status was motor and sensation was intact at the left portion. Nontender. To posterior [place] is pulseless 2 second capillary refill is present distally. Left upper extremity shows there is ecchymosis at the left elbow. There is no deformity or wounds. She has painless range of motion of the left elbow including full flexion extension. She has pain with minimal range of motion of the left wrist. There is no deformity. There is mild ecchymoses and minimal swelling. She is tender at the dorsum and ventral surface of the radiocarpal joint and ulnar carpal joint. Motor and sensation is fully intact throughout the left upper extremity. She has 2+ radial pulse present. Less than 2 second capillary refill is present. Results x-rays of the pelvis show mild displaced superior inferior pubic rami fracture. She has a hip prosthesis in place with no evidence of fracture or loosening. X-rays left wrist show no acute fracture. There is diffuse degenerative changes. X-rays left elbow show no acute fracture. - Labs Labs: Abnormal Lab Results - Last 24 Hours (Table) 11/12/19 11/12/19 Range/Units 20:30 20:30 WBC 11.9 H (3.8-10.6) k/uL Neutrophils # 8.4 H (1.3-7.7) k/uL Sodium 131 L (137-145) mmol/L Carbon Dioxide 21 L (22-30) mmol/L Total Protein 5.9 L (6.3-8.2) g/dL H & H 11/12/19 Range/Units 20:30 Hgb 13.7 (11.4-16.0) gm/dL Hct 42.1 (34.0-46.0) % Coagulation 11/12/19 Range/Units 20:30 INR 1.0 (<1.2) Result Diagrams: 11/12/19 20:30 11/12/19 20:30 Assessment and Plan (1) Fracture of left pelvis Narrative/Plan: There are no plans for immediate surgical intervention. Recommend continued continue conservative care including pain management and physical therapy where she is protected weightbearing with walker. Regarding her left wrist she likely has a contusion and sprain. Recommended removable wrist brace which she should be discharged with wear for 2-4 weeks. We will continue to follow. Current Visit: Yes Status: Acute Priority: Medium Code(s): S32.9XXA - FRACTURE OF UNSP PARTS OF LUMBOSACRAL SPINE AND PELVIS, INIT SNOMED Code(s): 31789624 (2) Left wrist sprain Current Visit: Yes Status: Acute Priority: Medium Code(s): S63.502A - UNSPECIFIED SPRAIN OF LEFT WRIST, INITIAL ENCOUNTER SNOMED Code(s): 33467410 (3) Contusion of left wrist Current Visit: Yes Status: Acute Priority: Medium Code(s): S60.212A - CONTUSION OF LEFT WRIST, INITIAL ENCOUNTER SNOMED Code(s): 71706580918509315 Time with Patient: Less than 30
[2019-11-13] MEDS: THIAMINE 100 MG TAB PO SCH (12:20)
[2019-11-13] MEDS: LEVOTHYROXINE 88 MCG TAB PO SCH (12:21)
[2019-11-13] MEDS ORDERED: ONDANSETRON 4 MG/2 ML VIAL IVP PRN (13:33)
[2019-11-13 15:27] LABS: Appearance,Urine Cloudy (Clear); Bacteria,Urine Rare /hpf; Bilirubin,Urine Negative (Negative); Blood,Urine Large (Negative); Color,Urine Yellow; Glucose,Urine (UA) Negative (Negative); Ketones,Urine 1+ (Negative); Leukocyte Esterase,Urine Large (Negative); Mucus,Urine Rare /hpf; Nitrite,Urine Positive (Negative); Protein,Urine Negative (Negative); RBC,Urine >182 /hpf (0-5); Specific Gravity,Urine 1.012 (1.001-1.035); Squamous Epithelial Cell,Urine 1 /hpf (0-4); Urobilinogen,Urine <2.0 mg/dL (<2.0); WBC,Urine 88 /hpf (0-5)
--- NOTE | 2019-11-13 21:04 | HP ---
HISTORY AND PHYSICAL DATE OF SERVICE: 11/13/2019 CHIEF COMPLAINT: Fall and pelvis fracture. HISTORY OF PRESENT ILLNESS: This 79-year-old woman with a past medical history of multiple medical problems, including CVA, TIA, memory impairment, history of chronic back pain, DJD, history of stroke, history of back surgery, history of appendectomy, being followed by Dr. Hope in the outpatient setting, apparently fell down steps and landed on a hard surface with tiles. The patient had some confusion and some change in mental status. The patient sustained a significant laceration to the left latter day, which was glued, and the patient also a significant hematoma of the face, including the front and the lower part of the face also. The patient also complained of left hip pain. The hip x-ray showed acute fracture of the left pubic rami. The patient is being closely monitored at this time. There is no history of any fever, rigor or chills. No history of headache, loss of consciousness, seizures. The patient was unable to give a coherent history. Most of the history was taken from my discussion with staff, review of review of chart as well as discussion with the patient's son, Dr. Dodson, over the phone. PAST MEDICAL HISTORY: History of CVA TIA, history of memory impairment, history of thyroid, history of chronic back pain, history of DJD, history of appendectomy, history of nicotine dependence. MEDICATIONS: Medications prior to admission include multivitamins, levothyroxine, lactobacillus, Lomotil, vitamin D3, Lipitor, Ecotrin. ALLERGIES: ZITHROMAX and INDOOR ALLERGIES. FAMILY HISTORY: History of renal disease and skin cancer in the family. SOCIAL HISTORY: History of occasional alcohol. History of smoking. REVIEW OF SYSTEMS: Review of systems could not be taken. The patient is confused. PHYSICAL EXAMINATION: Patient is conscious, mildly confused. Pulse 71, blood pressure 131/74, respiration 18, temperature 98.7, pulse ox 99% on room air. HEENT: Conjunctivae normal. Oral mucosa moist. NECK: No jugular venous distention. No carotid bruit. No lymph node enlargement. CARDIOVASCULAR SYSTEM: S1, S2 muffled. RESPIRATORY SYSTEM: Breath sounds diminished at the bases. A few scattered rhonchi and crackles. ABDOMEN: Soft, non-tender. No mass palpable. EXTREMITIES: Significant pain with movement of the left arm. The patient is able to move the foot. Nervous system could not be tested completely. SKIN: Facial lesions present. JOINTS: No active deforming arthropathy except the hip joints. LYMPHATICS: No lymph node palpable in neck, axillae or groin. EXAMINATION OF THE FACE: Significant bruises and laceration on the left side of the face present. LABS: WBC 11.9, hemoglobin 13.7. Sodium 131. ASSESSMENT: 1. Fall and multiple facial lacerations and hematomas on the face. 2. Left pubic rami fracture secondary to fall with severe pain and gait dysfunction. 3. Possible acute urinary tract infection, present on admission. 4. Change in mental status, acute on chronic metabolic encephalopathy. 5. Increased white count. 6. Hyponatremia. 7. Possible dementia. 8. History of cerebrovascular accident, transient ischemic attack. 9. History of hypothyroidism. 10.History of chronic back pain and degenerative joint disease. 11.History of back surgery. 12.History of nicotine dependence. 13.FULL CODE. RECOMMENDATIONS AND DISCUSSION: In this 79-year-old woman who presented with multiple complex medical issues, at this time I recommend to continue current medications, continue symptomatic treatment. Pain management. Resume the home medications. DVT prophylaxis. PT/OT evaluation, possible ECF rehab. Orthopedic consultation. I would also recommend repeat labs. I recommend a course of empiric antibiotics as well. Follow the cultures. The prognosis is extremely guarded because of multiple complex medical issues, which I discussed at length with the patient's son, Checo Ivory, over the phone, who agrees with the current diagnosis and therapeutic plan. As mentioned earlier, [facility] is referred per Dr. Dodson. A copy of this dictation is being forwarded to Dr. Hope, who is the primary physician. MMODL / IJN: [id number] /
[2019-11-13] MEDS: ASPIRIN 81 MG PO SCH (21:15)
[2019-11-13] MEDS: risperiDONE 0.5 MG TAB PO SCH (21:15)
[2019-11-13] MEDS: ATORVASTATIN 80 MG TAB PO SCH (21:15)
[2019-11-13] MEDS: HEPARIN SODIUM,PORCINE 5,000 UNIT/ML 1 ML VIAL SQ SCH (21:15)
[2019-11-14] MEDS: SODIUM CHLORIDE 0.9% 1,000 ML IV SCH (00:07)
[2019-11-14] MEDS: LEVOTHYROXINE 88 MCG TAB PO SCH (05:47)
[2019-11-14 06:39] LABS: Basophils % (A) 0 %; Eosinophils % (A) 0 %; HCT 32.8 % (34.0-46.0); HGB 10.9 gm/dL (11.4-16.0); Lymphocytes # (A) 1.6 k/uL (1.0-4.8); Lymphocytes % (A) 14 %; MCH 30.3 pg (25.0-35.0); MCHC 33.3 g/dL (31.0-37.0); MCV 90.9 fL (80.0-100.0); Mean Platelet Volume 7.2; Monocytes # (A) 0.5 k/uL (0-1.0); Monocytes % (A) 5 %; Neutrophils # (A) 9.2 k/uL (1.3-7.7); Neutrophils % (A) 81 %; Platelet Count 146 k/uL (150-450); RBC 3.61 m/uL (3.80-5.40); RDW 14.3 % (11.5-15.5); WBC 11.5 k/uL (3.8-10.6)
[2019-11-14] MEDS: PANTOPRAZOLE 40 MG TABLET PO SCH (09:05)
[2019-11-14] MEDS: CHOLECALCIFEROL 1,000 UNIT TAB PO SCH (09:05)
[2019-11-14] MEDS: MULTIVITAMINS, THERA 1 EACH TAB PO SCH (09:05)
[2019-11-14] MEDS: HEPARIN SODIUM,PORCINE 5,000 UNIT/ML 1 ML VIAL SQ SCH ×2 (09:06→19:58)
[2019-11-14] MEDS: THIAMINE 100 MG TAB PO SCH (09:06)
[2019-11-14 09:44] LABS: African American GFR (CKD) 114.8 (60.0-200.0); Anion Gap 9.5 mmol/L (4.00-12.00); Calcium 8.1 mg/dL (8.7-10.3); Carbon Dioxide 24.5 mmol/L (21.6-31.8); Non-African American GFR(CKD) 99.1 (60.0-200.0); Potassium 2.7 mmol/L (3.5-5.5)
[2019-11-14] MEDS ORDERED: POTASSIUM CHLORIDE 20 MEQ in WATER FOR INJECTION 1 100ML.BAG IVPB SCH (11:00)
[2019-11-14] MEDS: POTASSIUM CHLORIDE ER 20 MEQ TAB.ER PO SCH ×2 (12:44→15:45)
[2019-11-14] MEDS: HYDROcodone/APAP 5-325MG 1 EACH TAB PO PRN (12:47)
[2019-11-14] MEDS: 0.9% NACL WITH KCL 40 MEQ/L 1,000 ML IV SCH (13:19)
[2019-11-14] MEDS: POTASSIUM CHLORIDE 10 MEQ in WATER FOR INJECTION 1 100ML.BAG IVPB SCH ×5 (13:19→17:25)
[2019-11-14] MEDS ORDERED: Magnesium Replacement Protocol 1 EACH MISC MISCELLANE PRN (13:55)
[2019-11-14] MEDS: MAGNESIUM SULFATE-D5W PMX 1 GM in DEXTROSE/WATER 1 100ML.BAG IVPB SCH ×3 (14:22→17:22)
--- NOTE | 2019-11-14 17:27 | US ---
EXAMINATION TYPE: US carotid duplex BILAT DATE OF EXAM: 11/14/2019 COMPARISON: NONE CLINICAL HISTORY: syncope. syncope, fall EXAM MEASUREMENTS: RIGHT: Peak Systolic Velocity (PSV) cm/sec ----- Right CCA: 63.2 ----- Right ICA: 89.4 ----- Right ECA: 76.1 ICA/CCA ratio: 1.41 RIGHT: End Diastole cm/sec ----- Right CCA: 17.0 ----- Right ICA: 18.5 ----- Right ECA: 11.8 LEFT: Peak Systolic Velocity (PSV) cm/sec ----- Left CCA: 75.6 ----- Left ICA: 95.8 ----- Left ECA: 70.9 ICA/CCA ratio: 1.27 LEFT: End Diastole cm/sec ----- Left CCA: 20.2 ----- Left ICA: 33.8 ----- Left ECA: 14.1 VERTEBRALS (direction of flow): Right Vertebral: Antegrade Left Vertebral: Antegrade Rhythm: Normal Moderate plaque bilateral bifurcations. IMPRESSION: There is antegrade flow in the vertebral arteries. The images and measurements suggest close to 50% s tenosis in both internal carotid arteries. Criteria for Assigning % of Stenosis / Diameter reduction (Estimation based on the indirect measurements of the internal carotid artery velocities (ICA PSV). 1. Normal (no stenosis)=ICA PSV < 125 cm/s: ratio < 2.0: ICA EDV<40 cm/s. 2. Less than 50% stenosis=ICA PSV < 125 cm/s: ratio < 2.0: ICA EDV<40 cm/s. 3. 50 to 69% stenosis=ICA PSV of 125 to 230 cm/s: ration 2.0 ? 4.0: ICA EDV 40-100 cm/s. 4. Greater than 70% stenosis to near occlusion= ICA PSV > 230 cm/s: ratio > 4.0: ICA EDV > 100 cm/s. 5. Near occlusion= ICA PSV velocities may be low or undetectable: variable ratio and ICA EDV. 6. Total occlusion=unable to detect flow.
[2019-11-14] MEDS: ACETAMINOPHEN TAB 325 MG TAB PO PRN (19:58)
[2019-11-14] MEDS: ASPIRIN 81 MG PO SCH (19:58)
[2019-11-14] MEDS: ATORVASTATIN 80 MG TAB PO SCH (19:58)
[2019-11-14] MEDS: risperiDONE 0.5 MG TAB PO SCH (19:58)
--- NOTE | 2019-11-14 21:38 | PN ---
PROGRESS NOTE DATE OF SERVICE: 11/14/2019 This 79-year-old woman was admitted after a fall and significant hematosis of the face and also fracture of the pelvis. The patient has severe pain. Patient also had change in mental status. Patient also had severe hypokalemia today. PT/OT evaluating the patient closely. ECF rehab is being contemplated. The patient apparently passed out and syncope workup is also underway. Cardiology and neurology was consulted. A 50% stenosis of both internal carotid arteries was noted. Past medical history reviewed. REVIEW OF SYSTEMS: Could not be taken. The patient mildly confused. MEDICATIONS: Current medications are: 1. Tylenol. 2. [place]. 3. Aspirin. 4. Lipitor. 5. Rocephin. 6. Dilaudid. 7. Synthroid. 8. Multivitamins. 9. Narcan. 10.Zofran. 11.Protonix. 12.Risperdal. 13.Vitamin B1. PHYSICAL EXAM: Patient is alert and oriented times three. Pulse 89, blood pressure 126/74, respirations 16, temperature 97.9, pulse ox 94% on room air. HEENT: Conjunctivae normal. Otherwise face is significant hematomas and lacerated wound also present left side of the face. Cardiovascular system: S1, S2 muffled. Respiration: Clear to auscultation. ABDOMEN: Soft. Nontender. LEGS: Movement of legs are painful. NERVOUS SYSTEM: No focal deficits. Mildly confused. LABS: WBC 11.1, hemoglobin 10.2. Potassium 2.2, sodium 131, magnesium is 1.4. UA possible UTI. ASSESSMENT: 1. Fall and multiple facial lacerations and hematomas of the face. 2. Left pubic rami fracture secondary to fall with severe pain and gait dysfunction. 3. Possible acute urinary tract infection present on admission. 4. Syncope for evaluation. 5. Bilateral carotid stenosis 50% stenosis. 6. Change in mental status with acute on chronic metabolic encephalopathy. 7. Increased WBC. 8. Hyponatremia. 9. Possible dementia. 10.History of cerebrovascular accident/transient ischemic attack. 11.History of hypothyroidism. 12.History of chronic back pain/degenerative joint disease. 13.History of back surgery. 14.History of nicotine dependence. 15.FULL CODE. RECOMMENDATIONS AND DISCUSSION: Recommend to continue current medications, monitoring, management and symptomatic treatment. Recommend to continue current management. Continue the antibiotics. The cultures are reviewed which are not finalized yet. I would recommend continue the antibiotics, PT/OT evaluation, possible ECF rehab. I had a detailed discussion with the at the bedside and further recommendations to follow. I would also obtain cardiology and 2D echo and carotid Doppler. Cardiology and neurology consultations as well. Further recommendations to follow. MMDOMINGAL / SCOTTN: [id number] /
[2019-11-15] MEDS: 0.9% NACL WITH KCL 40 MEQ/L 1,000 ML IV SCH (04:37)
[2019-11-15 05:27] LABS: Basophils % (A) 0 %; Eosinophils # (A) 0.1 k/uL (0-0.7); Eosinophils % (A) 1 %; HCT 29.3 % (34.0-46.0); HGB 9.8 gm/dL (11.4-16.0); Lymphocytes # (A) 1.7 k/uL (1.0-4.8); Lymphocytes % (A) 19 %; MCH 31.1 pg (25.0-35.0); MCHC 33.4 g/dL (31.0-37.0); MCV 93.1 fL (80.0-100.0); Mean Platelet Volume 7.1; Monocytes # (A) 0.4 k/uL (0-1.0); Monocytes % (A) 4 %; Neutrophils # (A) 6.7 k/uL (1.3-7.7); Neutrophils % (A) 75 %; Platelet Count 132 k/uL (150-450); RBC 3.15 m/uL (3.80-5.40); RDW 14.4 % (11.5-15.5); WBC 8.9 k/uL (3.8-10.6)
[2019-11-15] MEDS: LEVOTHYROXINE 88 MCG TAB PO SCH (06:07)
[2019-11-15] MEDS: HEPARIN SODIUM,PORCINE 5,000 UNIT/ML 1 ML VIAL SQ SCH ×2 (09:13→20:47)
[2019-11-15] MEDS: CHOLECALCIFEROL 1,000 UNIT TAB PO SCH (09:13)
[2019-11-15] MEDS: MULTIVITAMINS, THERA 1 EACH TAB PO SCH (09:14)
[2019-11-15] MEDS: PANTOPRAZOLE 40 MG TABLET PO SCH (09:14)
[2019-11-15] MEDS: THIAMINE 100 MG TAB PO SCH (09:14)
[2019-11-15] MEDS: HYDROcodone/APAP 5-325MG 1 EACH TAB PO PRN ×2 (09:42→23:20)
[2019-11-15 09:56] LABS: Anion Gap 7.2 mmol/L (4.00-12.00); Carbon Dioxide 20.8 mmol/L (21.6-31.8); Magnesium 2.3 mg/dL (1.5-2.4); Potassium 5.3 mmol/L (3.5-5.5)
--- NOTE | 2019-11-15 10:52 | P.CNNES ---
History of Present Illness Consult date: 11/15/19 Requesting physician: Asha Merritt Reason for Consult: loss of consciousness concern for syncope History of Present Illness: This is a 79-year-old right-handed woman with medical history of mild cognitive impairment, transient ischemic attack, chronic back pain, arthritis, that presented emergency department on 11/12/2019 after a fall. History was obtained from the the patient's via phone as well as the patient herself. The patient does not recall the episode of her passing out. But she denies of any chest pain, shortness of breath, any palpitation, any diaphoresis, nausea or vomiting. According to patient's and he said the patient was at home and fell on tile floor. She lost consciousness for 1 minute and had her eyes closed then opened her eye. No jerking episodes. No foaming around mouth. No history of seizure. She was having hip pain. There is no family history of seizure. No prior episodes of passing out. Patient stated she denied chest pain or diaphoresis that she complained of. According to the he denies patient has history of TIA or stroke in past. She is on Lipitor 80mg daily and ASA 81mg daily. Regarding her cognitive she does not know her dates for her appointment, names of new members of friends. Walks without ambulation. Workup in the hospital consisted of: Initial vital signs was blood pressure 174/84, heart rate of 72, temperature of 97.9 Fahrenheit oral, respiratory rate of 16, pulse ox of [address] of the head was reported as cerebral atrophy and chronic small vessel ischemia. Left frontal and left side Orbital hematoma. I personally have reviewed the image and I do agree there is no acute ischemia or hemorrhage. There is no encephalomalacia that was appreciable. There is a chronic small vascular disease. I felt the bilateral frontal there is atrophy and mild to moderate degree. CT of the cervical spine was reported as spondylitic changes in the cervical spine. There is no fracture seen. CT facial bone was reported as left sided periorbital and maxillary soft tissue swelling and hematoma. No fracture seen. Fluid level in the left maxillary sinus could relate to hemorrhage. Pelvic x-ray fracture of the left pelvis. Subcutaneous hematoma over the left elbow. EKG was reported as sinus rhythm with occasional premature ventricular complexes. The ventricular rate of 70. Left anterior fascicular block. Nons pecific ST and T-wave abnormality. Carotid duplex was reported as anterograde flow in the vertebral arteries. The images and measurements suggest close to 50% stenosis in both internal carotid arteries. Urinary analysis Appears cloudy the leukocyte esterase was large nitrate was positive urine bacteria was rare urine white blood cell is 88. Is suggestive of urinary tract infection. Review of Systems Review of system is limited because of patient condition but per and positive and negative per HPI. Past Medical History Past Medical History: CVA/TIA, Memory Impairment, Thyroid Disorder Additional Past Medical History / Comment(s): chronic back pain, had stroke during back surgery-affected memory; balance wobbly since hip surgery Last Myocardial Infarction Date:: 2014 History of Any Multi-Drug Resistant Organisms: None Reported Past Surgical History: Appendectomy, Back Surgery, Orthopedic Surgery, Tonsillectomy Additional Past Surgical History / Comment(s): shoulder skin ca, knee surgery to left, ORIF left hip 2015, loop recorder insertion Past Anesthesia/Blood Transfusion Reactions: Postoperative Nausea & Vomiting (PONV) Additional Past Anesthesia/Blood Transfusion Reaction / Comment(s): claustrophobia, trouble waking up Past Psychological History: No Psychological Hx Reported Smoking Status: Current every day smoker Past Alcohol Use History: Daily Additional Past Alcohol Use History / Comment(s): started smoking at age 19 currently smoked 1/2 -3/4 ppd. drinks 1 [place] per day Past Drug Use History: None Reported - Past Family History Mother Family Medical History: Renal Disease Father Family Medical History: Cancer Additional Family Medical History / Comment(s): skin cancer, at age 93 from old age Medications and Allergies Home Medications Medication Instructions Recorded Confirmed Type Aspirin EC [Ecotrin Low Dose] 81 mg PO HS 12/24/15 11/12/19 History Atorvastatin [Lipitor] 80 mg PO HS 12/24/15 11/12/19 History Cholecalciferol [Vitamin D3] 1,000 unit PO DAILY 12/24/15 11/12/19 History Multivit with Calcium,Iron,Min 1 tab PO DAILY 10/22/17 11/12/19 History [Women's Multivitamin] Diphenox-Atrop 2.5-0.025 mg 2 tab PO QID PRN 11/12/19 11/12/19 History [Lomotil] L.acidoph,Paracasei, B.lactis 1 cap PO DAILY PRN 11/12/19 11/12/19 History [Probiotic] Levothyroxine Sodium [Synthroid] 88 mcg PO DAILY 11/12/19 11/12/19 History Allergies Allergy/AdvReac Type Severity Reaction Status Date / Time azithromycin AdvReac Nausea & Verified 11/12/19 22:06 [From Zithromax Z-Gomez] Vomiting INDOOR ENVIRONMENTAL Allergy Itching Uncoded 11/12/19 20:15 ALLERGIES Physical Examination - Vital Signs Vital Signs: Vital Signs Temp Pulse Resp BP Pulse Ox 11/15/19 04:42 97.7 F 85 16 144/73 93 L 11/14/19 19:18 97.8 F 88 18 124/73 96 11/14/19 16:46 64 11/14/19 13:00 97.9 F 89 16 126/74 95 11/14/19 09:31 88 Intake and Output 11/14/19 11/15/19 11/15/19 22:59 06:59 14:59 Output Total 500 1200 Balance -500 -1200 Output: Urine 500 1200 Uretheral (Duarte) 500 Other: Voiding Method Indwelling Catheter Indwelling Catheter # Bowel Movements 1 1 GENERAL: The patient is sitting on side of chair and is in mild acute distress. CHEST: The heart rate is regular rate rhythm. No murmurs to auscultation. No carotid bruit bilaterally. LUNG: Clear to auscultation bilaterally no wheezing noted throughout. Not labored breathing. ABDOMEN/GI: Bowel sounds present in all 4 quadrants. No tenderness to palpation throughout. NEUROLOGICAL: Higher mental function: The patient is awake, alert, oriented to self, place. She correctly stated that the year was 2019 but stated that the the month was July. Patient is following commands. No aphasia and no neglect. Cranial nerves: The pupils are round, equal and reactive to light and accommodation. Visual landis are full to confrontation throughout. Extraocular movement is intact no nystagmus is noted. Agent has ecchymosis a bruise over the bottom of left eye as well as the cheek and around the side of her neck from the fall. Facial sensation is normal to touch throughout. The facial strength is normal throughout. Hearing is normal bilaterally to hand rub. Tongue is midline and moved [id number] without any difficulty. No dysarthria is noted. Shoulder shrug strength is limited because of patient's pain. Motor: Gait is defered. Assessment of the strength was limited because of the patient's pain but the patient had the strength of 5 out of 5 over the right upper extremity while the left upper extremity in the bilateral lower extremity the patient was able to raise above gravity without any drift but was limited again because of the pain. Normal tone and bulk. Cerebellum: Normal finger to nose bilaterally. Sensation: Sensation is normal to touch throughout. Reflexes (right/left): 2+ throughout except ankles are 1+ bilaterally. Plantars are downgoing bilaterally. Results Patient sodium level as a 131. Upon reviewing her previous lab work she had he she has chronic hyponatremia in the range of 129-134. TSH of 1.64 AST of 31 ALTs of 18. Last lipid profile was engendered 2019 and it was at triglycerides 74, cholesterol of 144, LDLs 43, HDL is 86. Last hemoglobin A1c was also on generic 2019 and was 5.4. - Laboratory Findings CBC and BMP: 11/15/19 04:56 11/14/19 19:30 Abnormal Lab Findings: Abnormal Labs 11/12/19 11/12/19 11/13/19 20:30 20:30 14:55 WBC 11.9 H RBC Hgb Hct Plt Count Neutrophils # 8.4 H Sodium 131 L Potassium Carbon Dioxide 21 L BUN Creatinine Calcium Magnesium Total Protein 5.9 L Urine Appearance Cloudy H Urine Ketones 1+ H Urine Blood Large H Urine Nitrite Positive H Ur Leukocyte Esterase Large H Urine RBC >182 H Urine WBC 88 H Urine WBC Clumps Occasional H Urine Bacteria Rare H Urine Mucus Rare H 11/14/19 11/14/19 11/14/19 05:51 05:51 12:00 WBC 11.5 H RBC 3.61 L Hgb 10.9 L Hct 32.8 L Plt Count 146 L Neutrophils # 9.2 H Sodium 131 L Potassium 2.7 L* Carbon Dioxide BUN 8.0 L Creatinine 0.4 L Calcium 8.1 L Magnesium 1.4 L Total Protein Urine Appearance Urine Ketones Urine Blood Urine Nitrite Ur Leukocyte Esterase Urine RBC Urine WBC Urine WBC Clumps Urine Bacteria Urine Mucus 11/15/19 04:56 WBC RBC 3.15 L Hgb 9.8 L Hct 29.3 L Plt Count 132 L Neutrophils # Sodium Potassium Carbon Dioxide BUN Creatinine Calcium Magnesium Total Protein Urine Appearance Urine Ketones Urine Blood Urine Nitrite Ur Leukocyte Esterase Urine RBC Urine WBC Urine WBC Clumps Urine Bacteria Urine Mucus Assessment and Plan Assessment: 79-year-old female with medical history of cognitive impairment, transient ischemic attack, chronic back pain, arthritis, that presented emergency department on 11/12/2019 after a fall. According to medical records the patient's heard her hit the floor. Patient does not recall the event, and that she was infused after the episode. Patient denied any palpitation or chest pain prior to the fall. Patient did sustain a laceration left congregational area and also was complaining of left hip pain. Syncope. This does not seem to be seizures Left hip fracture UTI Mild cognitive impairment Plan: I ordered routine EEG. I will not start the patient on antiepileptic drug since this is the first episode of passing out. She is also on thiamine 100 mg daily. I'll order vitamin B12 to rule out any deficiency that can be contributing to cognitive impairment. 2-D echo is pending Continue cardiac monitoring Cardiology is consulted According to documentation she has history of TIA, stroke but according to she does not. She does have chronic small vessel disease and is on ASA 81mg and Lipitor. Because of the patient's loss of consciousness patient is to avoid driving for 6 month per [place] DMV law. It shows to avoid the [place], avoid that swimming unassisted and avoid that at using heavy machinery. Upon discharge the patient needs to follow-up with a neurologist as an outpatient. Thank you for the consult. Jeffery Womack M.D. Neuro-hospitalist Time with Patient: Greater than 30
--- NOTE | 2019-11-15 11:06 | P.CRDCN ---
History of Present Illness Consult date: 11/15/19 History of present illness: CHIEF COMPLAINT: Syncope HISTORY OF PRESENT ILLNESS: This is a 79-year old female with a past medical history significant for CVA, hypothyroidism, nicotine dependence, and daily alcohol use.. Patient follows in the office with Dr. Camacho. We have been asked to see the patient in consultation for syncope. Patient examined this morning at the bedside. Patient is unable to recall the events that led her to come to the hospital. She believes she was upstairs in her bedroom and walked downstairs and passed out. She believes that her called EMS and brought her to the hospital. The patient denies feeling weak, dizzy, or lightheaded prior to her syncopal episode. She denied chest pain or pressure. Patient did have a loop recorder that was removed in 2018 and did not show any arrhythmias. Patient reports smoking 3/4 pack of cigarettes a day and reports 1 alcoholic drink daily. DIAGNOSTICS: EKG reveals sinus mechanism Chest xray no active cardiopulmonary disease Hip x-ray: Acute fracture of left pubic rami Carotid Doppler: 50% bilateral stenosis of internal carotid arteries Laboratory data: WBC 8.9. Hemoglobin 9.8. Platelet count 132. Sodium 127. Potassium 5.3. BUN 8. Creatinine 0.40. Magnesium 2.3. TSH 1.640. Current home cardiac medications include Lipitor 80 mg daily and aspirin 81 mg daily REVIEW OF SYSTEMS: At the time of my exam: CONSTITUTIONAL: Denies fever or chills. HEENT: Denies blurred vision, vision changes, or eye pain. Denies hemoptysis CARDIOVASCULAR: Denies chest pain, orthopnea, PND or palpitations RESPIRATORY: No shortness of breath. GASTROINTESTINAL: Denies abdominal pain. Denies nausea or vomiting. HEMATOLOGIC: Denies bleeding disorders. GENITOURINARY: Denies any blood in urine. SKIN: Denies pruitis. Denies rash. PHYSICAL EXAM: VITAL SIGNS: Reviewed. GENERAL: Well-developed in no acute distress. HEENT: Head is normocephalic. Extensive ecchymosis to left side of face. Pupils are equal, round. Sclerae anicteric. Mucous membranes of the mouth are moist. Neck supple. No JVD or thyromegaly LUNGS: Respirations even and unlabored. Lungs essentially clear to auscultation bilaterally. HEART: Regular rate and rhythm. S1 and S2 heard. ABDOMEN: Soft. Nondistended. Nontender. EXTREMITIES: Normal range of motion. No clubbing or cyanosis. Peripheral pulses intact. No lower extremity edema NEUROLOGIC: Awake and alert. Oriented x 3. ASSESSMENT: Syncope Acute fracture of left pubic rami Left wrist sprain History of CVA Carotid stenosis Hypothyroidism Nicotine dependence Daily alcohol use PLAN: Continue current cardiac medications Obtain 2D echo to assess cardiac structure and function Obtain orthostatic blood pressures Ongoing telemetry monitoring Smoking cessation discussed Recommend alcohol abstinence Orthopedics following for pubic rami fracture Further recommendations pending patient course Nurse practitioner note has been reviewed by physician. Signing provider agrees with the documented findings, assessment, and plan of care. Past Medical History Past Medical History: CVA/TIA, Memory Impairment, Thyroid Disorder Additional Past Medical History / Comment(s): chronic back pain, had stroke during back surgery-affected memory; balance wobbly since hip surgery Last Myocardial Infarction Date:: 2014 History of Any Multi-Drug Resistant Organisms: None Reported Past Surgical History: Appendectomy, Back Surgery, Orthopedic Surgery, Tonsillec davi Additional Past Surgical History / Comment(s): shoulder skin ca, knee surgery to left, ORIF left hip 2015, loop recorder insertion Past Anesthesia/Blood Transfusion Reactions: Postoperative Nausea & Vomiting (PONV) Additional Past Anesthesia/Blood Transfusion Reaction / Comment(s): claustrophobia, trouble waking up Past Psychological History: No Psychological Hx Reported Smoking Status: Current every day smoker Past Alcohol Use History: Daily Additional Past Alcohol Use History / Comment(s): started smoking at age 19 currently smoked 1/2 -3/4 ppd. drinks 1 [place] per day Past Drug Use History: None Reported - Past Family History Mother Family Medical History: Renal Disease Father Family Medical History: Cancer Additional Family Medical History / Comment(s): skin cancer, at age 93 from old age Medications and Allergies Home Medications Medication Instructions Recorded Confirmed Type Aspirin EC [Ecotrin Low Dose] 81 mg PO HS 12/24/15 11/12/19 History Atorvastatin [Lipitor] 80 mg PO HS 12/24/15 11/12/19 History Cholecalciferol [Vitamin D3] 1,000 unit PO DAILY 12/24/15 11/12/19 History Multivit with Calcium,Iron,Min 1 tab PO DAILY 10/22/17 11/12/19 History [Women's Multivitamin] Diphenox-Atrop 2.5-0.025 mg 2 tab PO QID PRN 11/12/19 11/12/19 History [Lomotil] L.acidoph,Paracasei, B.lactis 1 cap PO DAILY PRN 11/12/19 11/12/19 History [Probiotic] Levothyroxine Sodium [Synthroid] 88 mcg PO DAILY 11/12/19 11/12/19 History Allergies Allergy/AdvReac Type Severity Reaction Status Date / Time azithromycin AdvReac Nausea & Verified 11/12/19 22:06 [From Zithromax Z-Gomez] Vomiting INDOOR ENVIRONMENTAL Allergy Itching Uncoded 11/12/19 20:15 ALLERGIES Physical Exam Vitals: Vital Signs Temp Pulse Resp BP Pulse Ox 11/15/19 04:42 97.7 F 85 16 144/73 93 L 11/14/19 19:18 97.8 F 88 18 124/73 96 11/14/19 16:46 64 11/14/19 13:00 97.9 F 89 16 126/74 95 Intake and Output 11/14/19 11/15/19 11/15/19 22:59 06:59 14:59 Output Total 500 1200 Balance -500 -1200 Output: Urine 500 1200 Uretheral (Duarte) 500 Other: Voiding Method Indwelling Catheter Indwelling Catheter Indwelling Catheter # Bowel Movements 1 1 Results 11/15/19 04:56 11/14/19 19:30 CBC 11/15/19 Range/Units 04:56 WBC 8.9 (3.8-10.6) k/uL RBC 3.15 L (3.80-5.40) m/uL Hgb 9.8 L (11.4-16.0) gm/dL Hct 29.3 L (34.0-46.0) % Plt Count 132 L (150-450) k/uL Comprehensive Metabolic Panel 11/14/19 11/14/19 Range/Units 05:51 19:30 Sodium 131 L 127 L (135-145) mmol/L Potassium 2.7 L* 5.3 (3.5-5.5) mmol/L Chloride 97 99 (96-109) mmol/L Carbon Dioxide 24.5 20.8 L (21.6-31.8) mmol/L BUN 8.0 L (9.0-27.0) mg/dL Creatinine 0.4 L (0.6-1.5) mg/dL Glucose 105 (70-110) mg/dL Calcium 8.1 L (8.7-10.3) mg/dL Current Medications Generic Name Dose Route Start Last Admin Trade Name Freq PRN Reason Stop Dose Admin Acetaminophen 650 mg 11/12/19 21:52 11/14/19 19:58 Acetaminophen Tab 325 Mg Tab PO 650 mg Q6HR PRN Administration Mild Pain or Fever > 100.5 Hydrocodone Bitart/Acetaminophen 1 each 11/13/19 10:38 11/15/19 09:42 Hydrocodone/Apap 5-325mg 1 Each Tab PO 1 each Q4HR PRN Administration Pain Scale 1 to 5 Hydrocodone Bitart/Acetaminophen 2 each 11/13/19 10:38 Hydrocodone/Apap 5-325mg 1 Each Tab PO Q6HR PRN Pain Scale 6 to 10 Aspirin 81 mg 11/13/19 21:00 11/14/19 19:58 Aspirin 81 Mg PO 81 mg HS MARKUS Administration Atorvastatin Calcium 80 mg 11/13/19 21:00 11/14/19 19:58 Atorvastatin 80 Mg Tab PO 80 mg HS MARKUS Administration Cholecalciferol 4,000 unit 11/13/19 09:00 11/15/19 09:13 Cholecalciferol 1,000 Unit Tab PO 4,000 unit DAILY MARKUS Administration Diphenoxylate HCl/Atropine 2 each 11/13/19 11:59 Diphenox-Atrop 2.5-0.025 Mg 1 Each Tab PO QID PRN Loose Stool Heparin Sodium (Porcine) 5,000 unit 11/13/19 21:00 11/15/19 09:13 Heparin Sodium,Porcine 5,000 Unit/Ml 1 Ml Vial SQ 5,000 unit Q12HR MARKUS Administration Hydromorphone HCl 0.5 mg 11/12/19 21:52 11/12/19 22:46 Hydromorphone 0.5 Mg/0.5 Ml Syringe IVP 0.5 mg Q3HR PRN Administration Moderate Pain Ceftriaxone Sodium 1 gm/ 50 mls @ 100 mls/hr 11/13/19 17:45 11/15/19 09:14 Sodium Chloride IVPB 100 mls/hr Q24HR MARKUS Administration Potassium Chloride/Sodium Chloride 1,000 mls @ 80 mls/hr 11/14/19 11:00 11/15/19 04:37 Ns-Kcl 40 Meq/L Iv Solution IV 80 mls/hr .[id number] MARKUS Administration Lactobacillus Acidoph/Bulgaricus 1 each 11/13/19 11:59 Lactobacillus Acidoph & Bulgar 1 Each Packet PO DAILY PRN GI Upset Levothyroxine Sodium 88 mcg 11/13/19 12:00 11/15/19 06:07 Levothyroxine 88 Mcg Tab PO 88 mcg DAILY@0630 MARKUS Administration Miscellaneous Information 1 each 11/14/19 13:55 Magnesium Replacement Protocol 1 Each Misc MISCELLANE DAILY PRN Per Protocol Protocol Multivitamins 1 each 11/13/19 09:00 11/15/19 09:14 Multivitamins, Thera 1 Each Tab PO 1 each DAILY MARKUS Administration Naloxone HCl 0.2 mg 11/12/19 21:52 Naloxone 0.4 Mg/Ml 1 Ml Vial IV Q2M PRN Opioid Reversal Ondansetron HCl 4 mg 11/13/19 13:33 Ondansetron 4 Mg/2 Ml Vial IVP Q6HR PRN Nausea And Vomiting Pantoprazole Sodium 40 mg 11/14/19 07:30 11/15/19 09:14 Pantoprazole 40 Mg Tablet PO 40 mg [id number] MARKUS Administration Risperidone 0.5 mg 11/13/19 21:00 11/14/19 19:58 Risperidone 0.5 Mg Tab PO 0.5 mg HS MARKUS Administration Thiamine HCl 100 mg 11/13/19 12:00 11/15/19 09:14 Thiamine 100 Mg Tab PO 100 mg DAILY@1200 MARKUS Administration Intake and Output 11/14/19 11/15/19 11/15/19 22:59 06:59 14:59 Output Total 500 1200 Balance -500 -1200 Output: Urine 500 1200 Uretheral (Duarte) 500 Other: Voiding Method Indwelling Catheter Indwelling Catheter Indwelling Catheter # Bowel Movements 1 1 11/15/19 04:56 11/14/19 19:30
--- NOTE | 2019-11-15 11:52 | ECHOF ---
Referral Reason:syncope MEASUREMENTS -------- HEIGHT: 162.6 cm WEIGHT: 53.1 kg BP: 144/73 RVIDd: 3.0 cm (< 3.3) IVSd: 1.2 cm (0.6 - 1.1) LVIDd: 3.8 cm (3.9 - 5.3) LVPWd: 1.2 cm (0.6 - 1.1) IVSs: 1.7 cm LVIDs: 2.4 cm LVPWs: 1.8 cm LA Diam: 2.5 cm (2.7 - 3.8) Ao Diam: 3.5 cm (2.0 - 3.7) AV Cusp: 2.3 cm (1.5 - 2.6) MV EXCURSION: 4.252 mm (> 18.000) MV EF SLOPE: 21 mm/s (70 - 150) EPSS: 1.7 cm MV E Masood: 0.58 m/s MV DecT: 148 ms MV A Masood: 0.96 m/s MV E/A Ratio: 0.60 AR PHT: 891 ms RAP: 5.00 mmHg RVSP: 24.18 mmHg FINDINGS -------- Sinus rhythm. This was a technically adequate study. The left ventricular size is normal. There is borderline concentric left ventricular hypertrophy. Overall left ventricular systolic function is mildly impaired with, an EF between 45 - 50 %. Basal posterior LV wall motion is hypokinetic. Basal inferior LV wall motion is dyskinetic. The left atrial size is normal. The right atrium is normal in size. Lipomatous Hypertrophy of the atrial septum is present There is mild aortic valve sclerosis. There is mild aortic regurgitation. Mild mitral annular calcification present. Mild tricuspid regurgitation present. Right ventricular systolic pressure is normal at < 35 mmHg. The pulmonic valve was not well visualized. The aortic root size is normal. Normal inferior vena cava with normal inspiratory collapse consistent with estimated right atrial pre ssure of 5 mmHg. There is no pericardial effusion. CONCLUSIONS -------- 1. The left ventricular size is normal. 2. There is borderline concentric left ventricular hypertrophy. 3. Overall left ventricular systolic function is mildly impaired with, an EF between 45 - 50 %. 4. Basal posterior LV wall motion is hypokinetic. 5. Basal inferior LV wall motion is dyskinetic. 6. Lipomatous Hypertrophy of the atrial septum is present 7. There is mild aortic valve sclerosis. 8. There is mild aortic regurgitation. 9. Mild mitral annular calcification present. 10. Mild tricuspid regurgitation present. 11. There is no pericardial effusion. [employer] STOCK CLERK: Tonie Perez RDCS
[2019-11-15 13:08] LABS: African American GFR (CKD) 100.5 (60.0-200.0); Anion Gap 7.1 mmol/L (4.00-12.00); BUN/Creat Ratio 23.33 Ratio (12.00-20.00); Calcium 7.9 mg/dL (8.7-10.3); Carbon Dioxide 19.9 mmol/L (21.6-31.8); Non-African American GFR(CKD) 86.7 (60.0-200.0); Potassium 4.6 mmol/L (3.5-5.5)
--- NOTE | 2019-11-15 13:22 | P.PN ---
Subjective Progress Note Date: 11/15/19 Principal diagnosis: Pubic rami fractures, left wrist sprain/contusion Patient is a pleasant 79-year-old female seen at bedside this morning. We are following her regarding her left superior and appeared pubic rami fractures as well as left wrist pain. She is up in chair today. Her pain is improved overall. She denies any new complaints including numbness or tingling. Objective - Vital Signs Vital signs: Vital Signs Temp 97.7 F 11/15/19 04:42 Pulse 85 11/15/19 04:42 Resp 16 11/15/19 04:42 BP 144/73 11/15/19 04:42 Pulse Ox 93 L 11/15/19 04:42 Intake & Output 11/14/19 11/15/19 11/15/19 18:59 06:59 18:59 Intake Total 640 Output Total 500 1200 Balance 140 -1200 Intake: Intake, IV Titration 640 Amount Sodium Chloride 0.9% 1, 640 000 ml @ 80 mls/hr IV . [id number] [facility] Rx#:[id number] Output: Urine 500 1200 Uretheral ([place]) 500 Other: Voiding Method Indwelling Catheter Indwelling Catheter Indwelling Catheter # Bowel Movements 1 - Exam Inspection of the left wrist shows no deformity, erythema or ecchymoses. She has tenderness at the dorsum of the wrist as well as pain with flexion-extension of the wrist. Neurovascular status is intact with motor and sensation of the left upper extremity. 2+ radial pulses present and less than 2 second capillary refill present. - Constitutional General appearance: Present: no acute distress - Labs CBC & Chem 7: 11/15/19 04:56 11/15/19 04:56 Labs: Abnormal Lab Results - Last 24 Hours (Table) 11/14/19 11/14/19 11/15/19 Range/Units 05:51 19:30 04:56 RBC 3.15 L (3.80-5.40) m/uL Hgb 9.8 L (11.4-16.0) gm/dL Hct 29.3 L (34.0-46.0) % Plt Count 132 L (150-450) k/uL Sodium 131 L 127 L (135-145) mmol/L Potassium 2.7 L* (3.5-5.5) mmol/L Carbon Dioxide 20.8 L (21.6-31.8) mmol/L BUN 8.0 L (9.0-27.0) mg/dL Creatinine 0.4 L (0.6-1.5) mg/dL BUN/Creatinine Ratio (12.00-20.00) Ratio Calcium 8.1 L (8.7-10.3) mg/dL 11/15/19 Range/Units 04:56 RBC (3.80-5.40) m/uL Hgb (11.4-16.0) gm/dL Hct (34.0-46.0) % Plt Count (150-450) k/uL Sodium 133 L (135-145) mmol/L Potassium (3.5-5.5) mmol/L Carbon Dioxide 19.9 L (21.6-31.8) mmol/L BUN (9.0-27.0) mg/dL Creatinine (0.6-1.5) mg/dL BUN/Creatinine Ratio 23.33 H (12.00-20.00) Ratio Calcium 7.9 L (8.7-10.3) mg/dL Microbiology - Last 24 Hours (Table) 11/13/19 18:19 Blood Culture - Preliminary Blood No Growth after 24 hours 11/13/19 18:45 Urine Culture - Preliminary Urine,Catheterized Gram Neg Bacilli Assessment and Plan (1) Fracture of left pelvis Narrative/Plan: There are no plans for immediate surgical intervention. Recommend continued continue conservative care including pain management and physical therapy where she is protected weightbearing with walker. Regarding her left wrist she may use the wrist brace when necessary for comfort. We will sign off at this point and she may follow-up as an outpatient in office. She can be transferred from an orthopedic standpoint when okay with internal medicine/cardiology Current Visit: Yes Status: Acute Priority: Medium Code(s): S32.9XXA - FRACTURE OF UNSP PARTS OF LUMBOSACRAL SPINE AND PELVIS, INIT SNOMED Code(s): 24301933 (2) Left wrist sprain Current Visit: Yes Status: Acute Priority: Medium Code(s): S63.502A - UNSPECIFIED SPRAIN OF LEFT WRIST, INITIAL ENCOUNTER SNOMED Code(s): 82759862 (3) Contusion of left wrist Current Visit: Yes Status: Acute Priority: Medium Code(s): S60.212A - CONTUSION OF LEFT WRIST, INITIAL ENCOUNTER SNOMED Code(s): 85124902836740194
[2019-11-15] MEDS: METOPROLOL SUCCINATE (ER) 25 MG TAB.ER.24H PO SCH (15:09)
--- NOTE | 2019-11-15 16:42 | PN ---
PROGRESS NOTE DATE OF SERVICE: 11/15/2019 This 79-year-old woman who was admitted with a significant fall and facial hematoma also had a fractured pelvis. The patient had significant pain, change in mental status, also. The patient also has UTI, present on admission. The culture showed Gram-negative bacilli. The patient is being closely monitored at this time. Cardiology is following the patient also. The patient also had a syncopal episode. The D-dimer is elevated at 1.48. Past medical history reviewed. Two-dimensional echo showed ejection fraction about 45% to 50%. REVIEW OF SYSTEMS: CARDIOVASCULAR SYSTEM: No angina, palpitations. RESPIRATORY SYSTEM: As mentioned earlier. GI: As mentioned earlier. : No dysuria or retention. NERVOUS SYSTEM: No numbness, weakness. CURRENT MEDICATIONS: Reviewed. They include Tylenol, [place], aspirin, Lipitor, Rocephin, Lomotil, Heparin, Dilaudid, Lactinex, Synthroid, Zestril, Toprol-XL, multivitamins, Narcan, Zofran, Protonix, Risperdal, vitamin B1. Doses are reviewed. PHYSICAL EXAMINATION: Patient is alert, oriented x2. Pulse 85, blood pressure 144/73, respirations 16, temperature 97.7, pulse ox 93% on room air. HEENT: Conjunctivae normal. Significant facial hematoma and facial laceration also present. CARDIOVASCULAR SYSTEM: S1, S2 muffled. RESPIRATORY SYSTEM: Breath sounds diminished at the bases. A few scattered rhonchi. ABDOMEN: Soft, non-tender. LEGS: No edema. No swelling. Movement of the left leg is painful. NERVOUS SYSTEM: Mild diffuse weakness. No focal deficit. LABS: WBC 8.9, hemoglobin 9.8, sodium 133. D-dimer is 1.48. ASSESSMENT: 1. Fall and multiple facial lacerations, hematoma of the face. 2. Syncope for evaluation; possibly cardiogenic. 3. Left pubic rami fracture secondary to fall with severe pain and gait dysfunction. 4. Acute urinary tract infection, present on admission, with Gram-negative bacilli. 5. Syncope. 6. Bilateral carotid artery stenosis, 50% stenosis. 7. Congestive heart failure with chronic systolic dysfunction, ejection fraction 45% to 50%. 8. Change in mental status and acute on chronic metabolic encephalopathy. 9. Increased white count. 10.Hyponatremia. 11.Possible dementia. 12.History of cerebrovascular accident, transient ischemic attack. 13.Hypothyroidism. 14.History of chronic back pain, degenerative joint disease. 15.History of back surgery. 16.History of nicotine dependence. 17.Elevated D-dimer. 18.FULL CODE. RECOMMENDATIONS AND DISCUSSION: In this 79-year-old woman who presented with multiple complex medical issues, we will monitor the patient closely, continue the current medications, continue symptomatic treatment. Cardiology and neurology evaluations appreciated. Continue the antibiotics. PT/OT evaluation. ECF rehab. Guarded prognosis. Further recommendations to follow. Discussed with family at length. Dr. Garcia and Dr. Hope will follow the patient in the ECF. MMDOMINGAL / SCOTTN: [id number] /
--- NOTE | 2019-11-15 18:00 | EEG ---
ELECTROENCEPHALOGRAM REPORT DATE OF SERVICE: 11/15/2019 CLINICAL HISTORY: This is a 79-year-old woman with a medical history of TIA who presented to the ED on 11/12/2019 after having an episode of passing out. This video EEG was obtained to evaluate for seizure and epileptiform activity. RELEVANT MEDICATION: The patient is not on any centrally active medication. EEG TYPE: A routine 21-channel EEG was performed with video using the 10/20 electrode placement system. DESCRIPTION: Wakefulness only is obtained. During wakefulness, there is a posterior-dominant rhythm of low to moderate voltage, reactive, well modulated, of 8 to 8.5 hertz activity. There was no physiological stage II sleep. INTERICTAL AND ICTAL: None. ACTIVATION PROCEDURE: Photic stimulation did not evoke a posterior driving response. Hyperventilation was not performed because of the patient's clinical history. CLINICAL INTERPRETATION: This is a normal awake routine EEG. There are no focal slowing, epileptiform activity or seizure during the study. Clinical correlation is recommended. MMDOMINGAL / IJN: [id number] / GRACE
--- NOTE | 2019-11-15 20:33 | CT ---
EXAMINATION TYPE: CT angio chest DATE OF EXAM: 11/15/2019 COMPARISON: 08/11/2013 HISTORY: Recent hip sx, check for PE. CT DLP: 185.3 mGycm Automated exposure control for dose reduction was used. CONTRAST: Performed with IV Contrast, patient injected with 100 mL of Isovue 370. There are 3-D post processed images. The lungs are clear of consolidation. There is no evidence of a pulmonary mass. There is no pleural e ffusion. There is posterior fusion surgery in the thoracolumbar spine. Heart is slightly enlarged. Th ere is no pericardial effusion. 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 There is no dissecti on. There is no mediastinal adenopathy. There are no hilar masses. There is normal contrast opacification of the pulmonary arteries. There are no filling defects. There is some spondylotic changes in the thoracic spine. There is no compression fracture. I see no b ja destructive process. There is some osteoarthritis in the right shoulder joint. IMPRESSION: No evidence of pulmonary embolism. 4.2 cm aneurysm ascending aorta is not changed compared to old jeremy lau
[2019-11-15] MEDS: ASPIRIN 81 MG PO SCH (20:46)
[2019-11-15] MEDS: risperiDONE 0.5 MG TAB PO SCH (20:47)
[2019-11-15] MEDS: ATORVASTATIN 80 MG TAB PO SCH (20:47)
[2019-11-16] MEDS ORDERED: NALOXONE 0.4 MG/ML 1 ML VIAL IV PRN (02:03)
[2019-11-16] MEDS ORDERED: ONDANSETRON 4 MG/2 ML VIAL IVP PRN (02:03)
[2019-11-16] MEDS: LEVOTHYROXINE 88 MCG TAB PO SCH (05:57)
[2019-11-16 06:46] LABS: Basophils % (A) 0 %; Eosinophils # (A) 0.2 k/uL (0-0.7); Eosinophils % (A) 2 %; HCT 27.4 % (34.0-46.0); HGB 8.9 gm/dL (11.4-16.0); Lymphocytes # (A) 1.9 k/uL (1.0-4.8); Lymphocytes % (A) 17 %; MCH 30.1 pg (25.0-35.0); MCHC 32.3 g/dL (31.0-37.0); MCV 93.2 fL (80.0-100.0); Mean Platelet Volume 7.3; Monocytes # (A) 0.5 k/uL (0-1.0); Monocytes % (A) 5 %; Neutrophils # (A) 8.6 k/uL (1.3-7.7); Neutrophils % (A) 76 %; Platelet Count 165 k/uL (150-450); RBC 2.94 m/uL (3.80-5.40); RDW 15.1 % (11.5-15.5); WBC 11.4 k/uL (3.8-10.6)
[2019-11-16 08:18] LABS: Appearance,Urine Clear (Clear); Bacteria,Urine Rare /hpf; Bilirubin,Urine Negative (Negative); Blood,Urine Moderate (Negative); Color,Urine Light Yellow; Glucose,Urine (UA) Negative (Negative); Ketones,Urine Negative (Negative); Leukocyte Esterase,Urine Moderate (Negative); Nitrite,Urine Negative (Negative); PH, Urine 6.5 (5.0-8.0); Protein,Urine Negative (Negative); RBC,Urine 175 /hpf (0-5); Specific Gravity,Urine 1.008 (1.001-1.035); Squamous Epithelial Cell,Urine 1 /hpf (0-4); Urobilinogen,Urine <2.0 mg/dL (<2.0); WBC,Urine 5 /hpf (0-5)
[2019-11-16] MEDS ORDERED: lisinopriL 5 MG TAB PO SCH (09:00)
[2019-11-16] MEDS: METOPROLOL SUCCINATE (ER) 25 MG TAB.ER.24H PO SCH (09:25)
[2019-11-16] MEDS: HEPARIN SODIUM,PORCINE 5,000 UNIT/ML 1 ML VIAL SQ SCH (09:25)
[2019-11-16] MEDS: CHOLECALCIFEROL 1,000 UNIT TAB PO SCH (09:25)
[2019-11-16] MEDS: THIAMINE 100 MG TAB PO SCH (09:26)
[2019-11-16] MEDS: MULTIVITAMINS, THERA 1 EACH TAB PO SCH (09:26)
[2019-11-16] MEDS: PANTOPRAZOLE 40 MG TABLET PO SCH (09:26)
[2019-11-16 10:12] LABS: African American GFR (CKD) 106.7 (60.0-200.0); Anion Gap 8.6 mmol/L (4.00-12.00); Carbon Dioxide 21.4 mmol/L (21.6-31.8); Non-African American GFR(CKD) 92.1 (60.0-200.0); Potassium 4.1 mmol/L (3.5-5.5)
--- NOTE | 2019-11-16 11:07 | P.PN ---
Subjective Progress Note Date: 11/16/19 CHIEF COMPLAINT: Syncope HISTORY OF PRESENT ILLNESS: Patient examined this morning at the bedside. She is confused and agitiated this morning. She has a health and safety coordinator present. She denies chest pain or pressure. Denies shortness of breath. Troponin negative 1. D- dimer 1.48. Patient underwent CTA chest which was negative for PE. Echocardiogram completed reveals EF between 45 and 50%, posterior LV wall hypokinesis and inferior LV wall dyskinesia. PHYSICAL EXAM: VITAL SIGNS: Reviewed. GENERAL: Well-developed in no acute distress. HEENT: Head is normocephalic. Extensive ecchymosis to left side of face. Pupils are equal, round. Sclerae anicteric. Mucous membranes of the mouth are moist. Neck supple. No JVD or thyromegaly LUNGS: Respirations even and unlabored. Lungs essentially clear to auscultation bilaterally. HEART: Regular rate and rhythm. S1 and S2 heard. ABDOMEN: Soft. Nondistended. Nontender. EXTREMITIES: Normal range of motion. No clubbing or cyanosis. Peripheral pulses intact. No lower extremity edema NEUROLOGIC: Awake and alert. Oriented x 1. ASSESSMENT: Syncope Acute fracture of left pubic rami Left wrist sprain History of CVA Carotid stenosis Hypothyroidism Nicotine dependence Daily alcohol use Mild cardiomyopathy, suspect ischemic given segmental wall motion abnormality PLAN: Continue current cardiac medications: aspirin, lipitor, metoprolol, and lisino pril Orthostatic blood pressures still not recorded in EMR. Obtain orthostatics if patients mental status improves and is able to stand for BP. Patient to follow up with Dr. Camacho outpatient for further testing and possible cardiac cath secondary to abnormal echo findings Nurse practitioner note has been reviewed by physician. Signing provider agrees with the documented findings, assessment, and plan of care. Objective - Vital Signs Vital signs: Vital Signs Temp 97.7 F 11/16/19 04:36 Pulse 76 11/16/19 04:36 Resp 19 11/16/19 04:36 BP 166/78 11/16/19 04:36 Pulse Ox 96 11/16/19 04:36 Intake & Output 11/15/19 11/16/19 11/16/19 18:59 06:59 18:59 Intake Total 640 740 Output Total 800 2550 850 Balance -160 -1810 -850 Intake: Intake, IV Titration 640 Amount 0.9% NaCl with KCl 40 Meq 640 /l 1,000 ml @ 80 mls/hr IV [id number] Rx#: [id number] Oral 740 Output: Urine 800 2550 850 Other: Voiding Method Indwelling Catheter Indwelling Catheter # Bowel Movements 1 2 - Labs CBC & Chem 7: 11/16/19 05:52 11/16/19 05:52 Labs: Abnormal Lab Results - Last 24 Hours (Table) 11/15/19 11/15/19 11/16/19 Range/Units 04:56 12:53 05:52 WBC 11.4 H (3.8-10.6) k/uL RBC 2.94 L (3.80-5.40) m/uL Hgb 8.9 L (11.4-16.0) gm/dL Hct 27.4 L (34.0-46.0) % Neutrophils # 8.6 H (1.3-7.7) k/uL D-Dimer 1.48 H (<0.60) mg/L FEU Sodium 133 L (135-145) mmol/L Carbon Dioxide 19.9 L (21.6-31.8) mmol/L Creatinine (0.6-1.5) mg/dL BUN/Creatinine Ratio 23.33 H (12.00-20.00) Ratio Calcium 7.9 L (8.7-10.3) mg/dL Urine Blood (Negative) Ur Leukocyte Esterase (Negative) Urine RBC (0-5) /hpf Urine Bacteria (None) /hpf 11/16/19 11/16/19 Range/Units 05:52 07:42 WBC (3.8-10.6) k/uL RBC (3.80-5.40) m/uL Hgb (11.4-16.0) gm/dL Hct (34.0-46.0) % Neutrophils # (1.3-7.7) k/uL D-Dimer (<0.60) mg/L FEU Sodium 134 L (135-145) mmol/L Carbon Dioxide 21.4 L (21.6-31.8) mmol/L Creatinine 0.5 L (0.6-1.5) mg/dL BUN/Creatinine Ratio 24.00 H (12.00-20.00) Ratio Calcium 8.0 L (8.7-10.3) mg/dL Urine Blood Moderate H (Negative) Ur Leukocyte Esterase Moderate H (Negative) Urine RBC 175 H (0-5) /hpf Urine Bacteria Rare H (None) /hpf Microbiology - Last 24 Hours (Table) 11/13/19 18:19 Blood Culture - Preliminary Blood No Growth after 48 hours 11/13/19 18:45 Urine Culture - Final Urine,Catheterized Escherichia coli
[2019-11-16 11:44] VITALS: BP 135/62; PULSE 70; RESP 16; TEMP 98.5
--- NOTE | 2019-11-16 11:45 | CDI ---
Documentation Clarification Form Date: 11/16/2019 11:33:23 AM From: Raisa Guerra RN, CCDS Admit Date: 11/12/2019 09:55:00 PM Patient Name: Rosalba Dodson Visit Number: [id number] ATTENTION: The Clinical Documentation Specialists (CDI) and [facility] Coding Staff appreciate your assistance in clarifying documentation. Please respond to the clarification below the line at the bottom and electronically sign. The CDI & [facility] Coding staff will review the response and follow-up if needed. Please note: Queries are made part of the Legal Health Record. If you have any questions, please contact the author of this message via ITS. Dr. Eduin Harper Please render your opinion on the clinical significance of the patients hemoglobin/hematocrit levels. History/Risk Factors: Cva/tia, thyroid, hx djd, appendectomy Clinical indicators: Hgb: 13.7/10.9/9.8/8.9 Hct: 42.1/32.8/29.3/27.4 Treatment: 11/11 0.9%NS @75 cc/hr x 1000 cc Labs AM daily In order to capture the severity of condition, please clarify if the labs/clinical indicators signify: Acute on chronic blood loss anemia Chronic blood loss anemia Iron deficiency anemia Nutritional anemia Anemia of chronic disease Unable to determine Other, please specify (Last Form Revision: April 2019) Unable to determine MTDD
--- NOTE | 2019-11-16 14:13 | P.PN ---
Subjective Progress Note Date: 11/16/19 Patient was seen at bedside and she said that she's doing well. She denies and of any weakness, numbness or visual disturbance. Objective - Vital Signs Vital signs: Vital Signs Temp 98.5 F 11/16/19 11:43 Pulse 70 11/16/19 11:43 Resp 16 11/16/19 11:43 BP 135/62 11/16/19 11:43 Pulse Ox 98 11/16/19 11:43 Intake & Output 11/15/19 11/16/19 11/16/19 18:59 06:59 18:59 Intake Total 640 740 Output Total 800 2550 850 Balance -160 -1810 -850 Intake: Intake, IV Titration 640 Amount 0.9% NaCl with KCl 40 Meq 640 /l 1,000 ml @ 80 mls/hr IV .[id number] [facility] Rx#: [id number] Oral 740 Output: Urine 800 2550 850 Other: Voiding Method Indwelling Catheter Indwelling Catheter Indwelling Catheter # Bowel Movements 1 2 - Exam GENERAL: The patient is sitting on side of chair and is in mild acute distress. CHEST: The heart rate is regular rate rhythm. No murmurs to auscultation. LUNG: Clear to auscultation bilaterally no wheezing noted throughout. Not labored breathing. ABDOMEN/GI: Bowel sounds present in all 4 quadrants. No tenderness to palpation throughout. NEUROLOGICAL: Higher mental function: The patient is awake, alert, oriented to self, place. She correctly stated that the year was 2019 but stated that the the month was July. Patient is following commands. No aphasia and no neglect. Cranial nerves: The pupils are round, equal and reactive to light and accommodation. Visual landis are full to confrontation throughout. Extraocular movement is intact no nystagmus is noted. Agent has ecchymosis a bruise over the bottom of left eye as well as the cheek and around the side of her neck from the fall. Facial sensation is normal to touch throughout. The facial strength is normal throughout. Hearing is normal bilaterally to hand rub. Tongue is midline and moved [id number] without any difficulty. No dysarthria is noted. Shoulder shrug strength is limited because of patient's pain. Motor: Gait is defered. Assessment of the strength was limited because of the p atient's pain but the patient had the strength of 5 out of 5 over the right upper extremity while the left upper extremity in the bilateral lower extremity the patient was able to raise above gravity without any drift but was limited again because of the pain. Normal tone and bulk. Cerebellum: Normal finger to nose bilaterally. Sensation: Sensation is normal to touch throughout. Reflexes (right/left): 2+ throughout except ankles are 1+ bilaterally. Plantars are downgoing bilaterally. - Labs CBC & Chem 7: 11/16/19 05:52 11/16/19 05:52 Labs: Abnormal Lab Results - Last 24 Hours (Table) 11/16/19 11/16/19 11/16/19 Range/Units 05:52 05:52 07:42 WBC 11.4 H (3.8-10.6) k/uL RBC 2.94 L (3.80-5.40) m/uL Hgb 8.9 L (11.4-16.0) gm/dL Hct 27.4 L (34.0-46.0) % Neutrophils # 8.6 H (1.3-7.7) k/uL Sodium 134 L (135-145) mmol/L Carbon Dioxide 21.4 L (21.6-31.8) mmol/L Creatinine 0.5 L (0.6-1.5) mg/dL BUN/Creatinine Ratio 24.00 H (12.00-20.00) Ratio Calcium 8.0 L (8.7-10.3) mg/dL Urine Blood Moderate H (Negative) Ur Leukocyte Esterase Moderate H (Negative) Urine RBC 175 H (0-5) /hpf Urine Bacteria Rare H (None) /hpf Microbiology - Last 24 Hours (Table) 11/13/19 18:19 Blood Culture - Preliminary Blood No Growth after 48 hours 11/13/19 18:45 Urine Culture - Final Urine,Catheterized Escherichia coli Assessment and Plan Assessment: 79-year-old female with medical history of cognitive impairment, transient ischemic attack, chronic back pain, arthritis, that presented emergency department on 11/12/2019 after a fall. According to medical records the patient's heard her hit the floor. Patient does not recall the event, and that she was infused after the episode. Patient denied any palpitation or chest pain prior to the fall. Patient did sustain a laceration left hindu area and also was complaining of left hip pain. Syncope. This does not seem to be seizures Left hip fracture UTI Mild cognitive impairment Plan: Routine EEG (11/15/19): Normal EEG. No epileptiform discharges, focal slowing or seizure seen. I will not start the patient on antiepileptic drug since this is the first episode of passing out. Continue thiamine 100 mg daily. I'll order vitamin B12 to rule out any deficiency that can be contributing to cognitive impairment. Carotid duplex: Close to 50% stenosis in both internal carotid arteries. 2-D echo: Borderline concentric left ventricular hypertrophy. EF 45-50%. Basal posterior LV wall motion hypokinetic. Basal inferior LV wall motion is dyskinetic Continue cardiac monitoring Cardiology is on board. Pending Orthostatic (blood pressure with heart rate). According to documentation she has history of TIA, stroke but according to h usband she does not. She does have chronic small vessel disease and is on ASA 81mg and Lipitor. Because of the patient's loss of consciousness patient is to avoid driving for 6 month per [place] DMV law. It shows to avoid the [place], avoid that swimming unassisted and avoid that at using heavy machinery. Upon discharge the patient needs to follow-up with a neurologist as an outpatient. Jeffery Womack M.D. Neuro-hospitalist Time with Patient: Greater than 30
--- NOTE | 2019-11-16 14:58 | P.DS ---
Providers Date of admission: 11/12/19 21:55 Expected date of discharge: 11/16/19 Attending physician: Eduin Harper Consults: 11/12/19 21:53 Consult Physician Urgent Consulting Provider: Yony Barroso Consult Reason/Comments: Pelvis Fracture Do you want consulting provider notified?: Already Contacted 11/14/19 15:46 Consult Physician Routine Consulting Provider: Kendall Perez Consult Reason/Comments: syncope Do you want consulting provider notified?: Yes 11/14/19 15:50 Consult Physician Routine Consulting Provider: Jeffery Womack Consult Reason/Comments: syncope Do you want consulting provider notified?: Yes Primary care physician: [facility] Course: Presenting complaint: Fall History of presenting complaint: This patient fell at home. heard the patient fall to the floor and patient had no recollection of the same. She was initially somewhat confused and she then got back to baseline. Patient had no fracture. Some left periorbital vital hematoma. She does smoke, and drinks one [place] a day. Brace was put on the left wrist. Neurological workup was negative. Seen by physical therapy. Qualified for rehab. Today-sitting up at the site of the bed. He tolerated breakfast. Did work with therapy. Pain controlled. Discussion and discharge planning more than 35 minutes Consultation: Dr. Womack from neurology. Dr[facility] On examination: VITAL SIGNS: [98.5, 70, 16, 135 a 62, 98% on room air] GENERAL APPEARANCE: Sitting of ages bed, comfortable. Left wrist-brace HEENT: Some bruising around the left eye with, subconjunctival hemorrhage on the left eye laterally EYES: Pupils equal. Conjunctiva normal. NECK: JVD not raised. Mass not palpable. RESPIRATORY: Respiratory effort normal. Lungs clear to auscultation. CARDIOVASCULAR: First and second sounds normal. No edema. ABDOMEN: Soft. Liver and spleen not palpable. No tenderness. No mass palpable. PSYCHIATRY: Alert and oriented x3. Mood and affect normal. Investigations: Computed tomography scan of the brain, R-vkhay-xrcfssr atrophy, pitting of vital hematoma, no fracture evidence of osteoarthritis Facial computed tomography scan-no fracture Left hip x-ray-acute fracture the left pubic rami Chest x-ray-clear EKG tracing personally reviewed by me-sinus rhythm nonspecific ST-T wave changes Carotid Doppler-close to 50% stenosis both internal carotid arteries Left wrist x-ray-no fracture 2-D echocardiogram-EF 45-50%, some wall motion abnormality EEG-no seizure activity CT chest with contrast-no PE. 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 coli -Hypothyroidism -Chronic low back pain from arthritis Disposition: [facility]AT[facility] Patient Condition at Discharge: Stable Plan - Discharge Summary Discharge Rx Participant: No New Discharge Prescriptions: New Cefuroxime [Ceftin] 250 mg PO BID 3 Days #6 tab risperiDONE [RisperDAL] 0.5 mg PO HS tab Metoprolol Succinate (ER) [Toprol XL] 25 mg PO DAILY tab.er.24h Acetaminophen Tab [Tylenol] 650 mg PO Q6HR PRN tab PRN Reason: Mild Pain Or Fever > 100.5 Thiamine [Vitamin B-1] 100 mg PO DAILY@1200 tab lisinopriL [Zestril] 5 mg PO DAILY tab Continue Cholecalciferol [Vitamin D3 (25 Mcg = 1000 Iu)] 1,000 unit PO DAILY Atorvastatin [Lipitor] 80 mg PO HS Aspirin EC [Ecotrin Low Dose] 81 mg PO HS Multivit with Calcium,Iron,Min [Women's Multivitamin] 1 tab PO DAILY Levothyroxine Sodium [Synthroid] 88 mcg PO DAILY Diphenox-Atrop 2.5-0.025 mg [Lomotil] 2 tab PO QID PRN PRN Reason: Loose Stool L.acidoph,Paracasei, B.lactis [Probiotic] 1 cap PO DAILY PRN PRN Reason: Gi Upset Discharge Medication List Aspirin EC [Ecotrin Low Dose] 81 mg PO HS 12/24/15 [History] Atorvastatin [Lipitor] 80 mg PO HS 12/24/15 [History] Cholecalciferol [Vitamin D3 (25 Mcg = 1000 Iu)] 1,000 unit PO DAILY 12/24/15 [History] Multivit with Calcium,Iron,Min [Women's Multivitamin] 1 tab PO DAILY 10/22/17 [History] Diphenox-Atrop 2.5-0.025 mg [Lomotil] 2 tab PO QID PRN 11/12/19 [History] L.acidoph,Paracasei, B.lactis [Probiotic] 1 cap PO DAILY PRN 11/12/19 [History] Levothyroxine Sodium [Synthroid] 88 mcg PO DAILY 11/12/19 [History] Acetaminophen Tab [Tylenol] 650 mg PO Q6HR PRN tab 11/16/19 [Rx] Cefuroxime [Ceftin] 250 mg PO BID 3 Days #6 tab 11/16/19 [Rx] Metoprolol Succinate (ER) [Toprol XL] 25 mg PO DAILY tab.er.24h 11/16/19 [Rx] Thiamine [Vitamin B-1] 100 mg PO DAILY@1200 tab 11/16/19 [Rx] lisinopriL [Zestril] 5 mg PO DAILY tab 11/16/19 [Rx] risperiDONE [RisperDAL] 0.5 mg PO HS tab 11/16/19 [Rx] Follow up Appointment(s)/Referral(s): Joni Garcia MD [STAFF PHYSICIAN] - 1-2 Days Yony Barroso MD [STAFF PHYSICIAN] - 10 Days Activity/Diet/Wound Care/Special Instructions: protected weightbearing with walker left lower extremity f/u in office in 10 days wrist brace prn for comfort pain meds per ortho
== END 2019-11-16 16:00 | DRG 535 ==
LOC: EC 20:08 → 6NMEDSUR 21:55
PROVIDERS: ADMIT Hospitalist; ATTEND Hospitalist
PROC: 0HQ1XZZ Repair Face Skin, External Approach (ICD-10-PCS; principal; 2019-11-12)
DX: S32.592A Other specified fracture of left pubis, initial encounter for closed fracture (principal); G93.41 Metabolic encephalopathy; E87.1 Hypo-osmolality and hyponatremia; I50.22 Chronic systolic (congestive) heart failure; N30.90 Cystitis, unspecified without hematuria; F03.90 Unspecified dementia, unspecified severity, without behavioral disturbance, psychotic disturbance, mood disturbance, and anxiety; S50.02XA Contusion of left elbow, initial encounter; S01.81XA Laceration without foreign body of other part of head, initial encounter; E03.9 Hypothyroidism, unspecified; G89.29 Other chronic pain; I69.311 Memory deficit following cerebral infarction; F17.210 Nicotine dependence, cigarettes, uncomplicated; I44.4 Left anterior fascicular block; M19.90 Unspecified osteoarthritis, unspecified site; R40.2362 Coma scale, best motor response, obeys commands, at arrival to emergency department; R40.2142 Coma scale, eyes open, spontaneous, at arrival to emergency department; R40.2252 Coma scale, best verbal response, oriented, at arrival to emergency department; S63.502A Unspecified sprain of left wrist, initial encounter; S60.212A Contusion of left wrist, initial encounter; I65.23 Occlusion and stenosis of bilateral carotid arteries; E87.6 Hypokalemia; I25.5 Ischemic cardiomyopathy; H11.32 Conjunctival hemorrhage, left eye; R55 Syncope and collapse; M54.5 Low back pain; B96.20 Unspecified Escherichia coli [E. coli] as the cause of diseases classified elsewhere; I25.2 Old myocardial infarction; W10.9XXA Fall (on) (from) unspecified stairs and steps, initial encounter; Y92.009 Unspecified place in unspecified non-institutional (private) residence as the place of occurrence of the external cause; Z71.6 Tobacco abuse counseling; Z79.890 Hormone replacement therapy; Z79.899 Other long term (current) drug therapy; Z90.49 Acquired absence of other specified parts of digestive tract; Z98.890 Other specified postprocedural states; Z79.82 Long term (current) use of aspirin; Z88.1 Allergy status to other antibiotic agents; Z80.8 Family history of malignant neoplasm of other organs or systems
CPT/HCPCS: 36415; 51702; 70450; 70486; 71045; 71275; 72125; 73502; 80048; 80051; 80053; 81001; 82550; 82607; 83735; 84443; 84484; 85025; 85379; 85610; 87040; 87077; 87086; 87186; 90471; 90715; 93005; 93306; 93880; 95816; 96361; 96374; 99285

== ENCOUNTER 2020-02-18 11:31 | Inpatient (IN) | payer MEDICARE ==
[2020-02-18] MEDS ORDERED: PANTOPRAZOLE 40 MG/10 ML VIAL IVP STA (12:02)
[2020-02-18] MEDS ORDERED: SODIUM CHLORIDE 0.9% 1,000 ML IV STA (12:02)
--- NOTE | 2020-02-18 12:05 | ED ---
General Adult HPI - General Chief complaint: Nausea/Vomiting/Diarrhea Stated complaint: low blood pressure Time Seen by Provider: 02/18/20 11:46 Source: patient, family Mode of arrival: ambulatory Limitations: altered mental status - History of Present Illness Initial comments: Dictation was produced using [employer] dictation software. please excuse any grammatical, word or spelling errors. This patient was cared for during a federal and state declared state of emergency secondary to Covid 19 Chief Complaint: 79-year-old female past medical history of thyroid disease presents with acute on subacute weakness and concerns of coffee-ground emesis. History of Present Illness: An is a 79-year-old female she allegedly has a history of dementia and thyroid disease. She is accompanied by her who allegedly has some dementia as well. Patient's son is an emergency physician out in [place]. He called prior to patient's arrival stating that his mother was coming to be evaluated for generalized weakness and coffee-ground emesis. reports that patient has been having worsening weakness ongoing for the last month and a half. She did having generalized weakness that they describe as difficulties with activities of daily living and he describes weakness as having difficulty raising her legs and wound about in the bed. She denies any medications except for thyroid medications. She's been having frequent diarrhea that patient and described as nonbilious not bloody. She does report perhaps there is maybe some specks of black or red in her diarrhea as well. Patient has been having poor appetite. She does complain of intermittent episodes of diffuse vague abdominal pain. She denies any pain complaints currently. Yesterday she had a bout of emesis. reports that the emesis was not seen by him but daughter who has been visiting from out of town. She had had only one episode last night. Patient denies any constitutional symptoms. Denies any focal neurologic deficits. had her blood pressure measured yesterday and was found to be low with systolic measures in the 90s. The ROS documented in this emergency department record has been reviewed and confirmed by me. Those systems with pertinent positive or negative responses have been documented in the HPI. All other systems are other negative and/or noncontributory. PHYSICAL EXAM: General Impression: Alert and oriented x3, not in acute distress HEENT: Normocephalic atraumatic, extra-ocular movements intact, pupils equal and reactive to light bilaterally, dry mucous membranes Cardiovascular: Heart regular rate and rhythm Chest: Able to complete full sentences, no retractions, no tachypnea Abdomen: abdomen soft, non-tender, non-distended, no organomegaly Musculoskeletal: Pulses present and equal in all extremities, no peripheral edema Motor: no focal deficits noted Neurological: CN II-XII grossly intact, no focal motor or sensory deficits noted Skin: Intact with no visualized rashes Psych: Normal affect and mood Rectal exam: No gross blood, there are however some black specks noted on the glove with digital rectal exam, there is mild skin breakdown around the anus ED course: 79-year-old male presents with acute on subacute generalized weakness, episode of coffee-ground emesis, poor appetite and diarrhea. It appears that patient has been having several months of symptoms but her symptoms exacerbated over the last 2 days. Vital signs upon arrival shows blood pressure 83/60, worse vital signs within acceptable limits. Son Hal left his phone number at [phone]. Johnny is an emergency physician out in [place]. More history was obtained from Hal. Patient allegedly takes iron every other day she is on 2 pressure medications. He reports that her symptoms have been ongoing for the last week or so. He is concerned that perhaps patient has access to opiate medications that may be causing her symptoms. She lives with anemia and has baseline hyponatremia. Reports that her blood pressure is, on the low side but generally around 115 systolic BP range. EKG interpretation: Ventricular rate 81, normal sinus rhythm, CA interval 146, QRS 90, QTc 436. No CA prolongation, no QTC prolongation, no ST or T-wave changes noted. EKG compared to 09/04/2019 showing no changes. Overall, this EKG is unremarkable Laboratory evaluation obtained. CBC unremarkable. Coag panel is negative. Metabolic panel shows an 129, creatinine 1.4 the BUN of 61. This is above her usual baseline. This is likely secondary to prerenal azotemia from dehydration. Still, blood is negative. Acute abdominal series and x-ray shows no acute processes. Discussed patient that I recommend that she be admitted observation for fluid resuscitation and renal monitoring. Patient is agreeable plan. Patient will be admitted to [facility] hospitalist group. - Related Data Home Medications Medication Instructions Recorded Confirmed Aspirin EC [Ecotrin Low Dose] 81 mg PO HS 12/24/15 11/12/19 Atorvastatin [Lipitor] 80 mg PO HS 12/24/15 11/12/19 Cholecalciferol [Vitamin D3 (25 1,000 unit PO DAILY 12/24/15 11/12/19 Mcg = 1000 Iu)] Multivit with Calcium,Iron,Min 1 tab PO DAILY 10/22/17 11/12/19 [Women's Multivitamin] Diphenox-Atrop 2.5-0.025 mg 2 tab PO QID PRN 11/12/19 11/12/19 [Lomotil] L.acidoph,Paracasei, B.lactis 1 cap PO DAILY PRN 11/12/19 11/12/19 [Probiotic] Levothyroxine Sodium [Synthroid] 88 mcg PO DAILY 11/12/19 11/12/19 Previous Rx's Medication Instructions Recorded Acetaminophen Tab [Tylenol] 650 mg PO Q6HR PRN tab 11/16/19 Cefuroxime [Ceftin] 250 mg PO BID 3 Days #6 tab 11/16/19 Metoprolol Succinate (ER) [Toprol 25 mg PO DAILY tab.er.24h 11/16/19 XL] Thiamine [Vitamin B-1] 100 mg PO DAILY@1200 tab 11/16/19 lisinopriL [Zestril] 5 mg PO DAILY tab 11/16/19 risperiDONE [RisperDAL] 0.5 mg PO HS tab 11/16/19 Allergies Allergy/AdvReac Type Severity Reaction Status Date / Time azithromycin AdvReac Nausea & Verified 11/12/19 22:06 [From Zithromax Z-Gomez] Vomiting INDOOR ENVIRONMENTAL Allergy Itching Uncoded 11/12/19 20:15 ALLERGIES Review of Systems ROS Statement: Those systems with pertinent positive or pertinent negative responses have been documented in the HPI. ROS Other: All systems not noted in ROS Statement are negative. Past Medical History Past Medical History: CVA/TIA, Memory Impairment, Thyroid Disorder Additional Past Medical History / Comment(s): chronic back pain, had stroke during back surgery-affected memory; balance wobbly since hip surgery Last Myocardial Infarction Date:: 2014 History of Any Multi-Drug Resistant Organisms: None Reported Past Surgical History: Appendectomy, Back Surgery, Orthopedic Surgery, Tonsillectomy Additional Past Surgical History / Comment(s): shoulder skin ca, knee surgery to left, ORIF left hip 2016, loop recorder insertion Past Anesthesia/Blood Transfusion Reactions: Postoperative Nausea & Vomiting (PONV) Additional Past Anesthesia/Blood Transfusion Reaction / Comment(s): claustrophobia, trouble waking up Past Psychological History: No Psychological Hx Reported Smoking Status: Current every day smoker Past Alcohol Use History: Daily Past Drug Use History: None Reported - Past Family History Mother Family Medical History: Renal Disease Father Family Medical History: Cancer Additional Family Medical History / Comment(s): skin cancer, at age 93 from old age General Exam Limitations: altered mental status Course Vital Signs 02/18/20 02/18/20 02/18/20 11:40 12:28 13:38 Temperature 98.2 F Pulse Rate 96 76 78 Respiratory 18 18 18 Rate Blood Pressure 83/60 101/56 105/60 O2 Sat by Pulse 97 96 95 Oximetry Medical Decision Making - Lab Data Result diagrams: 02/18/20 12:25 02/18/20 12:25 Lab Results 02/18/20 02/18/20 02/18/20 Range/Units 12:25 12:25 12:25 WBC 8.4 (3.8-10.6) k/uL RBC 5.15 (3.80-5.40) m/uL Hgb 15.6 (11.4-16.0) gm/dL Hct 45.1 (34.0-46.0) % MCV 87.6 (80.0-100.0) fL MCH 30.2 (25.0-35.0) pg MCHC 34.5 (31.0-37.0) g/dL RDW 13.8 (11.5-15.5) % Plt Count 224 (150-450) k/uL MPV 6.6 Neutrophils % 76 % Lymphocytes % 12 % Monocytes % 9 % Eosinophils % 1 % Basophils % 1 % Neutrophils # 6.4 (1.3-7.7) k/uL Lymphocytes # 1.0 (1.0-4.8) k/uL Monocytes # 0.7 (0-1.0) k/uL Eosinophils # 0.1 (0-0.7) k/uL Basophils # 0.1 (0-0.2) k/uL PT 9.9 (9.0-12.0) sec INR 0.9 (<1.2) APTT 24.3 (22.0-30.0) sec Sodium 129 L (137-145) mmol/L Potassium 4.3 (3.5-5.1) mmol/L Chloride 96 L (98-107) mmol/L Carbon Dioxide 22 (22-30) mmol/L Anion Gap 11 mmol/L BUN 61 H (7-17) mg/dL Creatinine 1.41 H (0.52-1.04) mg/dL Est GFR (CKD-EPI)AfAm 41 (>60 ml/min/1.73 sqM) Est GFR (CKD-EPI)NonAf 36 (>60 ml/min/1.73 sqM) Glucose 104 H (74-99) mg/dL Plasma Lactic Acid Bennett (0.7-2.0) mmol/L Calcium 9.6 (8.4-10.2) mg/dL Magnesium 2.0 (1.6-2.3) mg/dL Total Bilirubin 0.9 (0.2-1.3) mg/dL AST 23 (14-36) U/L ALT 17 (4-34) U/L Alkaline Phosphatase 83 (38-126) U/L Ammonia (<30) umol/L Total Protein 6.8 (6.3-8.2) g/dL Albumin 4.1 (3.5-5.0) g/dL TSH 0.474 (0.465-4.680) mIU/L Stool Occult Blood (Negative) 02/18/20 02/18/20 Range/Units 12:25 12:25 WBC (3.8-10.6) k/uL RBC (3.80-5.40) m/uL Hgb (11.4-16.0) gm/dL Hct (34.0-46.0) % MCV (80.0-100.0) fL MCH (25.0-35.0) pg MCHC (31.0-37.0) g/dL RDW (11.5-15.5) % Plt Count (150-450) k/uL MPV Neutrophils % % Lymphocytes % % Monocytes % % Eosinophils % % Basophils % % Neutrophils # (1.3-7.7) k/uL Lymphocytes # (1.0-4.8) k/uL Monocytes # (0-1.0) k/uL Eosinophils # (0-0.7) k/uL Basophils # (0-0.2) k/uL PT (9.0-12.0) sec INR (<1.2) APTT (22.0-30.0) sec Sodium (137-145) mmol/L Potassium (3.5-5.1) mmol/L Chloride (98-107) mmol/L Carbon Dioxide (22-30) mmol/L Anion Gap mmol/L BUN (7-17) mg/dL Creatinine (0.52-1.04) mg/dL Est GFR (CKD-EPI)AfAm (>60 ml/min/1.73 sqM) Est GFR (CKD-EPI)NonAf (>60 ml/min/1.73 sqM) Glucose (74-99) mg/dL Plasma Lactic Acid Bennett 1.0 (0.7-2.0) mmol/L Calcium (8.4-10.2) mg/dL Magnesium (1.6-2.3) mg/dL Total Bilirubin (0.2-1.3) mg/dL AST (14-36) U/L ALT (4-34) U/L Alkaline Phosphatase (38-126) U/L Ammonia <9 (<30) umol/L Total Protein (6.3-8.2) g/dL Albumin (3.5-5.0) g/dL TSH (0.465-4.680) mIU/L Stool Occult Blood Negative (Negative) Disposition Clinical Impression: DORA (acute kidney injury) Disposition: ADMITTED IP TO THIS HOSP Condition: Fair Referrals: Gwendolyn Florez MD [Primary Care Provider] - 1-2 days Decision Time: 14:47
[2020-02-18 12:32] LABS: Basophils # (A) 0.1 k/uL (0-0.2); Basophils % (A) 1 %; Eosinophils # (A) 0.1 k/uL (0-0.7); Eosinophils % (A) 1 %; HCT 45.1 % (34.0-46.0); HGB 15.6 gm/dL (11.4-16.0); Lymphocytes % (A) 12 %; MCH 30.2 pg (25.0-35.0); MCHC 34.5 g/dL (31.0-37.0); MCV 87.6 fL (80.0-100.0); Mean Platelet Volume 6.6; Monocytes # (A) 0.7 k/uL (0-1.0); Monocytes % (A) 9 %; Neutrophils # (A) 6.4 k/uL (1.3-7.7); Neutrophils % (A) 76 %; Platelet Count 224 k/uL (150-450); RBC 5.15 m/uL (3.80-5.40); RDW 13.8 % (11.5-15.5); WBC 8.4 k/uL (3.8-10.6)
[2020-02-18 12:44] LABS: INR 0.9 (<1.2); Partial Thromboplastin Time 24.3 sec (22.0-30.0); Prothrombin Time 9.9 sec (9.0-12.0)
[2020-02-18 12:46] LABS: Albumin 4.1 g/dL (3.5-5.0); Calcium 9.6 mg/dL (8.4-10.2); Potassium 4.3 mmol/L (3.5-5.1); Total Bilirubin 0.9 mg/dL (0.2-1.3); Total Protein 6.8 g/dL (6.3-8.2)
--- NOTE | 2020-02-18 13:05 | XR ---
EXAMINATION TYPE: XR abdomen acute w cxr DATE OF EXAM: 02/18/2020 CLINICAL HISTORY: Coffee-ground emesis with pain. TECHNIQUE: Single frontal view of chest is obtained. Supine and upright views of the abdomen are acq uired. COMPARISON: CTA chest November 15, 2019. FINDINGS: Mild underlying emphysematous change without pleural effusion or pneumothorax seen bilatera lly. Cardiac silhouette size appears within normal limits with atherosclerotic thoracic aorta. Osse ous structures are demineralized. Underlying scoliosis with long segment [place]. Gas is noted in nondistended small bowel loops. Gas and fecal material is seen in nondistended colon . Metallic hardware from left hip surgery is partially imaged. Overlying vascular calcification. No p neumoperitoneum. Surgical clips in the central upper pelvis IMPRESSION: 1. Chronic emphysematous change without acute pulmonary process. 2. Overall nonobstructive bowel gas pattern.
[2020-02-18] MEDS ORDERED: ONDANSETRON 4 MG/2 ML VIAL IVP PRN (14:44)
[2020-02-18] MEDS ORDERED: NALOXONE 0.4 MG/ML 1 ML VIAL IV PRN (14:44)
[2020-02-18 15:16] LABS: Appearance,Urine Clear (Clear); Bilirubin,Urine Negative (Negative); Blood,Urine Negative (Negative); Color,Urine Yellow; Glucose,Urine (UA) Negative (Negative); Ketones,Urine Trace (Negative); Leukocyte Esterase,Urine Negative (Negative); Nitrite,Urine Negative (Negative); Protein,Urine Trace (Negative); Specific Gravity,Urine 1.014 (1.001-1.035); Urobilinogen,Urine <2.0 mg/dL (<2.0)
[2020-02-18 15:39] LABS: Amphetamine Screen,Urine Not Detected (NotDetected); Barbiturate Screen,Urine Not Detected (NotDetected); Benzodiazepines Screen,Urine Not Detected (NotDetected); Cocaine Screen,Urine Not Detected (NotDetected); Methadone Screen, Urine Not Detected (NotDetected); Opiate Screen,Urine Not Detected (NotDetected); Oxycodone Screen, Urine Not Detected (NotDetected); Phencyclidine Screen,Urine Not Detected (NotDetected); Tricyclic Antidepressant,Urine Not Detected (NotDetected); Urn Cannabinoid Scrn Not Detected (NotDetected)
[2020-02-18] MEDS ORDERED: ACETAMINOPHEN TAB 325 MG TAB PO PRN (16:38)
[2020-02-18] MEDS ORDERED: LACTOBACILLUS ACIDOPH & BULGAR 1 EACH PACKET PO PRN (16:38)
[2020-02-18] MEDS ORDERED: DIPHENOX-ATROP 2.5-0.025 MG 1 EACH TAB PO PRN (16:38)
[2020-02-18] MEDS ORDERED: ALPRAZolam 0.25 MG TAB PO PRN (16:40)
[2020-02-18] MEDS ORDERED: HYDROcodone/APAP 5-325MG 1 EACH TAB PO PRN (16:40)
[2020-02-18] MEDS: SODIUM CHLORIDE 0.9% 1,000 ML IV SCH (18:02)
--- NOTE | 2020-02-18 18:53 | HP ---
HISTORY AND PHYSICAL DATE OF SERVICE: 02/18/2020 I am covering for Dr. Kang. CHIEF COMPLAINTS: Diarrhea, weakness and possible gastrointestinal bleed. HISTORY OF PRESENT ILLNESS: This 79-year-old woman with a past medical history of CVA, TIA, history of dementia, history of memory impairment, chronic DJD, appendectomy, back surgery, history of nicotine dependence, was having diarrhea for the last several weeks and the patient is extremely weak and patient is confused. The patient also suspected to have coffee- grounds emesis and coffee-ground material in the stool and the patient was taken to [facility] and was admitted for further evaluation and treatment. There is no history of fever, rigors. No history of headache, loss of consciousness, seizures. No history of contact with COVID-19 infection at this time. Initial Covid 19 screening in the ER was negative. PAST MEDICAL HISTORY: CVA TIA, memory impairment, appendectomy, back surgery, history of nicotine dependence. MEDICATIONS: Medications prior to admission home medications are: Tylenol. Risperdal, Zestril, multivitamins, Toprol-XL, Synthroid, probiotic, Lomotil, vitamin D3, Lipitor, Ecotrin. ALLERGIES: ZITHROMAX. INDOOR ALLERGENS. FAMILY HISTORY: History of renal disease. SOCIAL HISTORY: History of smoking. Occasional alcohol intake. REVIEW OF SYSTEMS: ENT: Diminished hearing and vision. CARDIOVASCULAR: No angina. No palpitations. RESPIRATIONS: No cough. No hemoptysis. GI: As mentioned earlier. no dysuria. Nervous System: No numbness, weakness. ALLERGY/IMMUNOLOGY: No asthma or hayfever. MUSCULOSKELETAL as mentioned earlier. HEMATOLOGY/ONCOLOGY: No history of anemia. ENDOCRINE: Hypothyroidism. CONSTITUTIONAL: As mentioned earlier. DERMATOLOGY: Negative. RHEUMATOLOGY: Negative. PSYCHIATRIC: As mentioned earlier. PHYSICAL EXAMINATION: Alert and oriented times three. Pulse 80. Blood pressure 123/70, respirations 16, temperature 97.8, pulse ox 99% on room air. HEENT: Conjunctivae pale. Oral mucosa moist. Neck is no jugular venous distention. No carotid bruit. No lymph node enlargement. Cardiovascular: S1, S2 muffled. No S3, no S4. Respiratory: Breath sounds diminished in the bases. No rhonchi. No crackles. ABDOMEN: Soft. No distention. No mass palpable. Ascites. Bowel sounds present. Legs: No edema. No swelling. Nervous system: Higher functions as mentioned earlier. Moves all 4 limbs. Mild diffuse weakness. Lymphatics: No lymph nodes palpable in the neck, axillae or groin. SKIN: No ulcer, no rash and no bleeding. Joints: No active deforming arthropathy. LABS: CBC within normal limits and sodium 120. Potassium 4.8, creatinine 1.4. ASSESSMENT: 1. Acute diarrhea with dehydration with acute renal failure with acute tubular necrosis and prerenal factors. 2. Hyponatremia. 3. Rule out gastrointestinal bleed. 4. History of cerebrovascular accident, transient ischemic attack. 5. History of memory impairment. 6. History of hypothyroidism. 7. History of chronic back pain, degenerative joint disease. 8. History of stroke. 9. History of back surgery. 10.History of nicotine dependence. 11.FULL CODE. RECOMMENDATIONS AND DISCUSSION: In this 79-year-old woman who presented with multiple complex medical issues, at this time I recommend to continue the current medications, symptomatic treatment. Otherwise at this time I recommend check C difficile. Gastroenterology consultation. Otherwise, watch for any bleeding. Hemoglobin is normal at this time. Otherwise, prognosis guarded because of multiple complex medical issues. Copy of this dictation being forwarded to Dr. Florez who is the primary physician. Dr. Kang will follow the patient tomorrow. MMDOMINGAL / IJN: [id number] /
[2020-02-18] MEDS: ATORVASTATIN 80 MG TAB PO SCH (20:02)
[2020-02-18] MEDS: HEPARIN SODIUM,PORCINE 5,000 UNIT/ML 1 ML VIAL SQ SCH (20:02)
[2020-02-18] MEDS: risperiDONE 0.5 MG TAB PO SCH (20:03)
[2020-02-19] MEDS: SODIUM CHLORIDE 0.9% 1,000 ML IV SCH ×2 (03:09→20:57)
[2020-02-19] MEDS: PANTOPRAZOLE 40 MG TABLET PO SCH (06:05)
[2020-02-19] MEDS: LEVOTHYROXINE 88 MCG TAB PO SCH (06:05)
[2020-02-19 06:55] LABS: Basophils % (A) 0 %; Eosinophils # (A) 0.1 k/uL (0-0.7); Eosinophils % (A) 1 %; HCT 39.5 % (34.0-46.0); HGB 13.5 gm/dL (11.4-16.0); Lymphocytes % (A) 22 %; MCH 30.6 pg (25.0-35.0); MCHC 34.2 g/dL (31.0-37.0); MCV 89.5 fL (80.0-100.0); Mean Platelet Volume 6.7; Monocytes # (A) 0.5 k/uL (0-1.0); Monocytes % (A) 11 %; Neutrophils # (A) 2.9 k/uL (1.3-7.7); Neutrophils % (A) 62 %; Platelet Count 179 k/uL (150-450); RBC 4.42 m/uL (3.80-5.40); RDW 13.7 % (11.5-15.5); WBC 4.6 k/uL (3.8-10.6)
[2020-02-19 07:04] LABS: Calcium 8.7 mg/dL (8.4-10.2)
[2020-02-19] MEDS: lisinopriL 5 MG TAB PO SCH (08:34)
[2020-02-19] MEDS: MULTIVITAMINS, THERA 1 EACH TAB PO SCH (08:34)
[2020-02-19] MEDS: CHOLECALCIFEROL 1,000 UNIT TAB PO SCH (08:34)
[2020-02-19] MEDS: METOPROLOL SUCCINATE (ER) 25 MG TAB.ER.24H PO SCH (08:34)
[2020-02-19] MEDS: HEPARIN SODIUM,PORCINE 5,000 UNIT/ML 1 ML VIAL SQ SCH ×2 (08:34→20:57)
--- NOTE | 2020-02-19 14:49 | CONS ---
CONSULTATION DATE OF DICTATION: 02/19/2020 REASON FOR CONSULTATION: Nausea, vomiting, diarrhea and coffee-grounds emesis. HISTORY OF PRESENT ILLNESS: The patient is a 79-year-old pleasant white female with history of dementia and hypothyroidism, apparently was brought to the emergency room by her son and most of the history was obtained from the patient's chart as well as from the patient. Apparently she was having some generalized weakness for the last one month duration associated with nausea, vomiting and coffee-grounds emesis. She also started having diarrhea with bowel movements anywhere from 7-8 a day which are loose to watery in consistency and there was some dark colored bowel movements. She came to the emergency room. Her hemoglobin was 15.6 g/dL. The patient, however, denies any abdominal pain. She had no further episodes of nausea, vomiting in the ER. She states that she had some loose bowel movement this morning, but no blood or mucus in the stool. She denies any recent NSAID use. No prior history of peptic ulcer disease. PAST MEDICAL HISTORY: Significant for mild dementia, history of CVA and TIA in the past, hypothyroidism, chronic back pain. PAST SURGICAL HISTORY: Appendectomy, back surgery, tonsillectomy, shoulder surgery, knee surgery. MEDICATIONS: Medications at home include aspirin, Lipitor, vitamin B12, probiotic, Lomotil, Synthroid. ALLERGIES: Allergies to AZITHROMYCIN and ENVIRONMENTAL ALLERGIES. SOCIAL HISTORY: No smoking. No alcohol use. FAMILY HISTORY: Unremarkable. REVIEW OF SYSTEMS: CARDIOPULMONARY: She denies any chest pain, no shortness of breath. GENITOURINARY: No dysuria or hematuria. MUSCULOSKELETAL: Unremarkable. SKIN: Unremarkable. ENDOCRINE: Unremarkable. PSYCHIATRIC: Unremarkable. NEUROLOGY: Mild dementia. ENT/VISION: Unremarkable. CONSTITUTIONAL: She denies any weight loss. No fever, chills, night sweats, but complains of generalized weakness. PHYSICAL EXAMINATION: She appears comfortable. No apparent distress. Vital signs are stable. Blood pressure 133/89, pulse rate 79 and afebrile. HEENT EXAMINATION: Unremarkable. Conjunctivae pink. Sclerae anicteric. Oral cavity, no lesions. NECK: No JVD or lymph node enlargement. CHEST: Was clear to auscultation. HEART: Regular rate and rhythm. ABDOMEN: Soft. Bowel sounds are positive. No organomegaly. EXTREMITIES: No pedal edema. NEURO: She is alert and oriented x3. No focal deficits. LABS: Labs at the time of admission to the hospital showed a WBC of 8.4, hemoglobin 15.6, platelets normal. BUN was 61, creatinine 1.41. Sodium 129, potassium 4.3. AST, ALT, T- bilirubin and alkaline phosphatase are normal. C difficile was negative. Coronavirus PCR is negative. BUN today was 49, creatinine 0.84. Hemoglobin was 13.5. IMPRESSION: 1. This is a lady who presents to the hospital with nausea, vomiting and coffee- grounds emesis that happened 2 nights ago. Apparently in the ER, she had a rectal examination done that showed black tarry stools of the gloved finger. Her hemoglobin, however, remains stable. She initially was 15.6 and today it is 13.5 g/dL. She also was noted to have elevated BUN at the time of admission to the hospital raising the possibility of acute upper gastrointestinal bleeding. However, she remains hemodynamically stable. 2. Diarrhea, intermittent diarrhea with dark colored stools for the last few days, possibly related to gastrointestinal bleed. Surprisingly, stool occult blood was negative. 3. Generalized weakness. RECOMMENDATIONS: 1. Continue with Protonix 40 mg twice daily. 2. Continue with regular diet. 3. Monitor CBC daily. 4. We will proceed with an upper endoscopy tomorrow. Discussed with her and she is agreeable to it. Thank you for this consultation. MARILU / ARIANA: [id number] /
--- NOTE | 2020-02-19 17:33 | P.PN ---
Subjective Progress Note Date: 02/19/20 On 02/19/2020 patient was seen and examined on the medical floor, I am assuming care of this patient at this time, I was away for 10 days, [facility], HMP was done by Dr. Merritt. Patient is a 79-year-old female who presented to [facility] with diarrhea and evidence of dehydration with severe weakness initial Covid 19 screening in the emergency room was negative patient was admitted to medical floor. Today patient is alert slightly confused in no apparent distress, she is still having episodes of diarrhea, her kidney function has improved significantly, otherwise she denies any complaints there is no fever or chills no headache or dizziness no chest pain no shortness of breath no cough no nausea or vomiting no abdominal pain no burning with urination no frequency or urgency and no hematuria. Objective - Vital Signs Vital signs: Vital Signs Temp 97.7 F 02/19/20 09:00 Pulse 87 02/19/20 09:00 Resp 18 02/19/20 09:00 BP 118/63 02/19/20 09:00 Pulse Ox 99 02/19/20 09:00 Intake & Output 02/18/20 02/19/20 02/19/20 18:59 06:59 18:59 Intake Total 480 Output Total 1 Balance 479 Weight 54.431 kg Intake: Oral 480 Output: Urine 1 Other: Voiding Method Toilet Toilet # Voids 0 4 1 # Bowel Movements 1 - Exam In general patient is alert, slightly confused in no apparent distress HEENT head normocephalic and atraumatic Neck is supple no JVD no goiter no lymphadenopathy Chest exam reveals a few scattered rhonchi no wheezing Cardiac exam reveals regular heart sounds no gallops no murmurs Abdomen is soft nontender no organomegaly with normal bowel sounds Extremity exam reveals no edema no cyanosis or clubbing Neurological examination reveals no gross focal deficits - Labs CBC & Chem 7: 02/19/20 06:29 02/19/20 06:29 Labs: Abnormal Lab Results - Last 24 Hours (Table) 02/18/20 02/19/20 Range/Units 14:57 06:29 Sodium 132 L (137-145) mmol/L BUN 49 H (7-17) mg/dL Urine Protein Trace H (Negative) Urine Ketones Trace H (Negative) Assessment and Plan Plan: 1. Acute Gastroenteritis with diarrhea 2. Dehydration with acute renal failure secondary to prerenal azotemia and acute tubular necrosis 3. Hyponatremia, improving with IV hydration 4. No evidence of gastrointestinal bleeding 5. Covid 19 testing negative At this time we are awaiting stools studies for gastroenterology Continue gentle hydration will follow closely
[2020-02-19] MEDS: risperiDONE 0.5 MG TAB PO SCH (20:57)
[2020-02-19] MEDS: ATORVASTATIN 80 MG TAB PO SCH (20:57)
[2020-02-20] MEDS: SODIUM CHLORIDE 0.9% 1,000 ML IV SCH ×2 (03:49→12:44)
[2020-02-20] MEDS: PANTOPRAZOLE 40 MG TABLET PO SCH (06:33)
[2020-02-20] MEDS: LEVOTHYROXINE 88 MCG TAB PO SCH (06:34)
[2020-02-20 07:43] VITALS: BP 131/90; PULSE 59; RESP 16; TEMP 96.1
[2020-02-20 08:27] LABS: Basophils % (A) 1 %; Eosinophils # (A) 0.1 k/uL (0-0.7); Eosinophils % (A) 2 %; HCT 39.5 % (34.0-46.0); Lymphocytes # (A) 1.5 k/uL (1.0-4.8); Lymphocytes % (A) 28 %; MCHC 32.9 g/dL (31.0-37.0); MCV 91.3 fL (80.0-100.0); Mean Platelet Volume 7.3; Monocytes # (A) 0.5 k/uL (0-1.0); Monocytes % (A) 9 %; Neutrophils # (A) 3.1 k/uL (1.3-7.7); Neutrophils % (A) 58 %; Platelet Count 171 k/uL (150-450); RBC 4.33 m/uL (3.80-5.40); RDW 13.7 % (11.5-15.5); WBC 5.3 k/uL (3.8-10.6)
[2020-02-20 08:34] LABS: African American GFR (CKD) >90 (>60 ml/min/1.73 sqM); Anion Gap 4 mmol/L; Blood Urea Nitrogen 35 mg/dL (7-17); Calcium 8.7 mg/dL (8.4-10.2); Carbon Dioxide 20 mmol/L (22-30); Chloride 109 mmol/L (98-107); Glucose 90 mg/dL (74-99); Non-African American GFR(CKD) 88 (>60 ml/min/1.73 sqM); Potassium 3.8 mmol/L (3.5-5.1); Sodium 133 mmol/L (137-145)
[2020-02-20] MEDS: METOPROLOL SUCCINATE (ER) 25 MG TAB.ER.24H PO SCH (09:10)
[2020-02-20] MEDS: MULTIVITAMINS, THERA 1 EACH TAB PO SCH (09:10)
[2020-02-20] MEDS: CHOLECALCIFEROL 1,000 UNIT TAB PO SCH (09:10)
[2020-02-20] MEDS: HEPARIN SODIUM,PORCINE 5,000 UNIT/ML 1 ML VIAL SQ SCH (09:10)
[2020-02-20] MEDS: lisinopriL 5 MG TAB PO SCH (09:10)
[2020-02-20] MEDS ORDERED: IV FLUID CONTINUATION 1,000 ML IV ONE (13:11)
[2020-02-20] MEDS ORDERED: PROPOFOL 10 MG/ML 20 ML VIAL IV ONE (13:15)
--- NOTE | 2020-02-20 13:29 | P.PCN ---
Date of Procedure: 02/20/20 Procedure(s) Performed: BRIEF HISTORY: Patient is a 79-year-old, pleasant, female scheduled for an upper endoscopy as a part of evaluation of acute onset of nausea vomiting and coffee-ground emesis and black-colored stools of 2 days' duration.. Hemoglobin was 12.3 g/dL. PROCEDURE PERFORMED: Esophagogastroduodenoscopy with biopsy. PREOPERATIVE DIAGNOSIS: Acute onset of nausea vomiting and coffee-ground emesis. IV sedation per anesthesia. PROCEDURE: After informed consent was obtained, the patient was brought into the endoscopy unit. IV sedation was administered by Anesthesia under continuous monitoring. Initially the Olympus GIF-140 video endoscope was inserted into the mouth. Esophagus intubated without any difficulty. It was gradually advanced into the stomach and duodenum and carefully examined. The bulb and the second part of the duodenum appeared normal. The scope at this time was withdrawn to the stomach, adequately insufflated with air, and upon careful examination, mucosa of the antrum, had a 1 cm irregular ulcer with friable margins which was biopsied. No active bleeding noted. Rest of the body, cardia and the fundus appeared normal. The scope was then withdrawn into the esophagus. The GE junction was located at 39 cm from the incisors. The esophagus appeared normal. There were no erosions or ulcerations seen and the patient tolerated the procedure well. IMPRESSION: 1. 1 cm ulceration in the antrum with no active bleeding status post biopsy. 2. Antral gastritis. RECOMMENDATIONS: The findings of this examination were discussed with the patient. She will continue on Protonix 40 mg daily. Diet will be advanced as tolerated. She can be discharged home today with outpatient follow-up in 2-3 weeks..
--- NOTE | 2020-02-20 18:02 | P.DS ---
Providers Date of admission: 02/19/20 11:50 Expected date of discharge: 02/20/20 Attending physician: Ladonna Kang Consults: 02/18/20 16:38 Consult Physician Routine Consulting Provider: Braulio Abdullahi Consult Reason/Comments: diarrhea, gi bleed? Do you want consulting provider notified?: Yes Primary care physician: Gwendolyn Florez Hospital Course: Diagnosis on discharge: 1. Acute Gastroenteritis with diarrhea 2. Dehydration with acute renal failure secondary to prerenal azotemia and acute tubular necrosis 3. Hyponatremia, improving with IV hydration 4. No evidence of gastrointestinal bleeding, EGD done this admission revealed evidence of 1 cm ulceration in the antrum with no active bleeding 5. Covid 19 testing negative Hospital course: On 02/19/2020 patient was seen and examined on the medical floor, I am assuming care of this patient at this time, I was away for 10 days, and [facility] were covering for me, HMP was done by Dr. Merritt. Patient is a 79-year-old female who presented to [facility] with diarrhea and evidence of dehydration with severe weakness initial Covid 19 screening in the emergency room was negative patient was admitted to medical floor. Today patient is alert slightly confused in no apparent distress, she is still having episodes of diarrhea, her kidney function has improved significantly, otherwise she denies any complaints there is no fever or chills no headache or dizziness no chest pain no shortness of breath no cough no nausea or vomiting no abdominal pain no burning with urination no frequency or urgency and no hematuria. On 02/20/2020 patient was seen and examined on the medical floor she is alert and oriented 3 in no apparent distress she underwent EGD this morning and had evidence of 1 cm ulceration in the antrum without any evidence of bleeding. Patient is feeling well she denies any diarrhea at this time her lab results has improved and she is very eager to be discharged home. On review of systems there is no fever or chills no headache or dizziness no chest pain no shortness of breath no cough no nausea or vomiting no abdominal pain no diarrhea and no blood in the stools no burning with urination no frequency or urgency and no hematuria. At this point patient will be discharged home she was given a prescription for Protonix 40 mg once daily otherwise she should continue with her home medications as prior to admission she should follow-up with her primary care physician within one week. Patient Condition at Discharge: Fair Plan - Discharge Summary Discharge Rx Participant: No New Discharge Prescriptions: New Pantoprazole [Protonix] 40 mg PO AC-BRKFST tablet.dr Continue Cholecalciferol [Vitamin D3 (25 Mcg = 1000 Iu)] 1,000 unit PO DAILY Atorvastatin [Lipitor] 80 mg PO HS Aspirin EC [Ecotrin Low Dose] 81 mg PO HS Multivit with Calcium,Iron,Min [Women's Multivitamin] 1 tab PO DAILY Levothyroxine Sodium [Synthroid] 88 mcg PO DAILY Diphenox-Atrop 2.5-0.025 mg [Lomotil] 2 tab PO QID PRN PRN Reason: Loose Stool L.acidoph,Paracasei, B.lactis [Probiotic] 1 cap PO DAILY PRN PRN Reason: Gi Upset risperiDONE [RisperDAL] 0.5 mg PO HS tab Metoprolol Succinate (ER) [Toprol XL] 25 mg PO DAILY tab.er.24h Acetaminophen Tab [Tylenol] 650 mg PO Q6HR PRN tab PRN Reason: Mild Pain Or Fever > 100.5 lisinopriL [Zestril] 5 mg PO DAILY tab Discharge Medication List Aspirin EC [Ecotrin Low Dose] 81 mg PO HS 12/24/15 [History] Atorvastatin [Lipitor] 80 mg PO HS 12/24/15 [History] Cholecalciferol [Vitamin D3 (25 Mcg = 1000 Iu)] 1,000 unit PO DAILY 12/24/15 [History] Multivit with Calcium,Iron,Min [Women's Multivitamin] 1 tab PO DAILY 10/22/17 [History] Diphenox-Atrop 2.5-0.025 mg [Lomotil] 2 tab PO QID PRN 11/12/19 [History] L.acidoph,Paracasei, B.lactis [Probiotic] 1 cap PO DAILY PRN 11/12/19 [History] Levothyroxine Sodium [Synthroid] 88 mcg PO DAILY 11/12/19 [History] Acetaminophen Tab [Tylenol] 650 mg PO Q6HR PRN tab 11/16/19 [Rx] Metoprolol Succinate (ER) [Toprol XL] 25 mg PO DAILY tab.er.24h 11/16/19 [Rx] lisinopriL [Zestril] 5 mg PO DAILY tab 11/16/19 [Rx] risperiDONE [RisperDAL] 0.5 mg PO HS tab 11/16/19 [Rx] Pantoprazole [Protonix] 40 mg PO AC-BRKFST tablet. 02/20/20 [Rx] Follow up Appointment(s)/Referral(s): Gwendolyn Florez MD [Primary Care Provider] - 02/22/20 11:00 am Jessica Elam MD [STAFF PHYSICIAN] - 2 Weeks [facility], [NON-STAFF] - 1-2 Days Patient Instructions/Handouts: Acute Kidney Injury (DC) Discharge/Stand Alone Forms: Who Do I Call?, Help In The Home
== END 2020-02-20 15:26 | disposition home health service (06) | DRG 391 ==
LOC: EC 11:31 → 1SOBS 14:45 → OBSVTOIN 02-19 11:50
PROVIDERS: ADMIT Internal Medicine; ATTEND Internal Medicine
PROC: 0DB68ZX Excision of Stomach, Via Natural or Artificial Opening Endoscopic, Diagnostic (ICD-10-PCS; principal; 2020-02-20 07:55)
DX: K52.9 Noninfective gastroenteritis and colitis, unspecified (principal); N17.0 Acute kidney failure with tubular necrosis; E87.1 Hypo-osmolality and hyponatremia; F03.90 Unspecified dementia, unspecified severity, without behavioral disturbance, psychotic disturbance, mood disturbance, and anxiety; Z20.822 Contact with and (suspected) exposure to COVID-19; K29.70 Gastritis, unspecified, without bleeding; K25.9 Gastric ulcer, unspecified as acute or chronic, without hemorrhage or perforation; E86.0 Dehydration; E03.9 Hypothyroidism, unspecified; G89.29 Other chronic pain; M54.9 Dorsalgia, unspecified; I25.2 Old myocardial infarction; M19.90 Unspecified osteoarthritis, unspecified site; F40.240 Claustrophobia; F17.200 Nicotine dependence, unspecified, uncomplicated; Z79.82 Long term (current) use of aspirin; Z79.890 Hormone replacement therapy; Z79.899 Other long term (current) drug therapy; Z86.73 Personal history of transient ischemic attack (TIA), and cerebral infarction without residual deficits; Z90.89 Acquired absence of other organs; Z90.49 Acquired absence of other specified parts of digestive tract; Z87.19 Personal history of other diseases of the digestive system; Z85.828 Personal history of other malignant neoplasm of skin; Z87.81 Personal history of (healed) traumatic fracture; Z98.890 Other specified postprocedural states; Z88.1 Allergy status to other antibiotic agents; Z91.048 Other nonmedicinal substance allergy status; Z80.8 Family history of malignant neoplasm of other organs or systems
CPT/HCPCS: 36415; 43239; 74022; 80048; 80053; 80306; 81003; 82140; 82272; 83605; 83735; 84443; 85025; 85379; 85610; 85730; 87045; 87046; 87324; 87328; 87329; 87635; 88305; 93005; 96361; 96374; 99285

== ENCOUNTER 2020-09-30 12:41 | Observation (INO) | payer MEDICARE ==
--- NOTE | 2020-09-30 13:11 | ED ---
General Adult HPI - General Chief complaint: Chest Pain Stated complaint: Fall, Chest pain Time Seen by Provider: 09/30/20 12:56 Source: patient, family, RN notes reviewed, old records reviewed Mode of arrival: wheelchair Limitations: physical limitation - History of Present Illness Initial comments: 79-year-old female presenting with central chest pressure which began this morning at approximately 8:30 AM. She denies any prior known cardiac disease. Denies associated vomiting or diaphoresis. The pain does not travel. She did have a minor fall from bed. With no head injury. No anticoagulation. Patient denies abdominal pain. She had taken Tylenol and nitroglycerin at home. The nitroglycerin did not seem to impact her chest pressure. - Related Data Home Medications Medication Instructions Recorded Confirmed Aspirin EC [Ecotrin Low Dose] 81 mg PO HS 12/24/15 02/18/20 Atorvastatin [Lipitor] 80 mg PO HS 12/24/15 02/18/20 Cholecalciferol [Vitamin D3 (25 1,000 unit PO DAILY 12/24/15 02/18/20 Mcg = 1000 Iu)] Multivit with Calcium,Iron,Min 1 tab PO DAILY 10/22/17 02/18/20 [Women's Multivitamin] Diphenox-Atrop 2.5-0.025 mg 2 tab PO QID PRN 11/12/19 02/18/20 [Lomotil] L.acidoph,Paracasei, B.lactis 1 cap PO DAILY PRN 11/12/19 02/18/20 [Probiotic] Levothyroxine Sodium [Synthroid] 88 mcg PO DAILY 11/12/19 02/18/20 Previous Rx's Medication Instructions Recorded Acetaminophen Tab [Tylenol] 650 mg PO Q6HR PRN tab 11/16/19 Metoprolol Succinate (ER) [Toprol 25 mg PO DAILY tab.er.24h 11/16/19 XL] lisinopriL [Zestril] 5 mg PO DAILY tab 11/16/19 risperiDONE [RisperDAL] 0.5 mg PO HS tab 11/16/19 Pantoprazole [Protonix] 40 mg PO AC-BRKFST tablet. 02/20/20 Allergies Allergy/AdvReac Type Severity Reaction Status Date / Time azithromycin AdvReac Nausea & Verified 09/30/20 12:49 [From Zithromax Z-Gomez] Vomiting INDOOR ENVIRONMENTAL Allergy Itching Uncoded 09/30/20 12:49 ALLERGIES Review of Systems ROS Statement: Those systems with pertinent positive or pertinent negative responses have been documented in the HPI. ROS Other: All systems not noted in ROS Statement are negative. Past Medical History Past Medical History: CVA/TIA, Memory Impairment, Thyroid Disorder Additional Past Medical History / Comment(s): chronic back pain, had stroke during back surgery-affected memory; balance wobbly since hip surgery Last Myocardial Infarction Date:: 2014 History of Any Multi-Drug Resistant Organisms: None Reported Past Surgical History: Appendectomy, Back Surgery, Orthopedic Surgery, Tonsillectomy Additional Past Surgical History / Comment(s): shoulder skin ca, knee surgery to left, ORIF left hip 2015, loop recorder insertion Past Anesthesia/Blood Transfusion Reactions: Postoperative Nausea & Vomiting (PONV) Additional Past Anesthesia/Blood Transfusion Reaction / Comment(s): claustr ophobia, trouble waking up Past Psychological History: No Psychological Hx Reported Smoking Status: Current every day smoker Past Alcohol Use History: Daily Past Drug Use History: None Reported - Past Family History Mother Family Medical History: Renal Disease Father Family Medical History: Cancer Additional Family Medical History / Comment(s): skin cancer, at age 93 from old age General Exam Limitations: physical limitation General appearance: alert, in no apparent distress Head exam: Present: atraumatic, normocephalic Eye exam: Present: normal appearance, PERRL ENT exam: Present: normal exam Neck exam: Present: normal inspection. Absent: tenderness, meningismus Respiratory exam: Present: normal lung sounds bilaterally. Absent: respiratory distress, wheezes Cardiovascular Exam: Present: regular rate, normal rhythm GI/Abdominal exam: Present: soft. Absent: distended, tenderness, guarding Extremities exam: Present: normal inspection, normal capillary refill. Absent: pedal edema Neurological exam: Present: alert, oriented X3, CN II-XII intact. Absent: motor sensory deficit Psychiatric exam: Present: normal affect, normal mood Skin exam: Present: warm, dry, intact. Absent: cyanosis, diaphoretic Course Vital Signs 09/30/20 09/30/20 09/30/20 12:49 12:52 13:52 Temperature 98.0 F Pulse Rate 76 72 69 Respiratory 18 16 16 Rate Blood Pressure 131/66 148/76 121/77 O2 Sat by Pulse 98 95 95 Oximetry 09/30/20 14:00 Temperature Pulse Rate 69 Respiratory 16 Rate Blood Pressure O2 Sat by Pulse 95 Oximetry EKG Findings - EKG Comments: EKG Findings:: Normal sinus rhythm, left anterior fascicular block, artifact through the precordial leads, no definitive ST segment elevation, rate of 71, KS interval 174, QRS duration 90, QTC 419 Medical Decision Making - Medical Decision Making 79-year-old female presenting with chest pressure, fall. Uncertain if she had developed pain after the fall or prior to the fall. She describes it as a pressure sensation in the center of her chest. She has no previous history of CAD. EKG is sinus rhythm without ST segment elevation. I did perform both the chest x-ray and CT of the chest CT shows a compression fracture of the spine which is age undetermined. Cardiomegaly, and aortic ectasia. She has a mild hyponatremia 128. Initial troponin 0.015. Given the uncertainty down in the fall, combined with dehydration and hyponatremia she will be kept in observation for serial cardiac enzymes, reevaluation by Dr. Harper who is aware of the patient. - Lab Data Result diagrams: 09/30/20 13:12 09/30/20 13:12 Lab Results 09/30/20 09/30/20 09/30/20 Range/Units 13:12 13:12 13:12 WBC 13.7 H (3.8-10.6) k/uL RBC 4.94 (3.80-5.40) m/uL Hgb 15.5 (11.4-16.0) gm/dL Hct 46.9 H (34.0-46.0) % MCV 95.0 (80.0-100.0) fL MCH 31.4 (25.0-35.0) pg MCHC 33.0 (31.0-37.0) g/dL RDW 13.9 (11.5-15.5) % Plt Count 253 (150-450) k/uL MPV 7.2 Neutrophils % 82 % Lymphocytes % 11 % Monocytes % 5 % Eosinophils % 1 % Basophils % 0 % Neutrophils # 11.2 H (1.3-7.7) k/uL Lymphocytes # 1.5 (1.0-4.8) k/uL Monocytes # 0.7 (0-1.0) k/uL Eosinophils # 0.1 (0-0.7) k/uL Basophils # 0.1 (0-0.2) k/uL PT 10.0 (9.0-12.0) sec INR 0.9 (<1.2) APTT 24.3 (22.0-30.0) sec Sodium 128 L (137-145) mmol/L Potassium 4.1 (3.5-5.1) mmol/L Chloride 93 L (98-107) mmol/L Carbon Dioxide 26 (22-30) mmol/L Anion Gap 9 mmol/L BUN 19 H (7-17) mg/dL Creatinine 0.78 (0.52-1.04) mg/dL Est GFR (CKD-EPI)AfAm 84 (>60 ml/min/1.73 sqM) Est GFR (CKD-EPI)NonAf 73 (>60 ml/min/1.73 sqM) Glucose 109 H (74-99) mg/dL Calcium 9.9 (8.4-10.2) mg/dL Magnesium 1.5 L (1.6-2.3) mg/dL Total Bilirubin 0.8 (0.2-1.3) mg/dL AST 32 (14-36) U/L ALT 17 (4-34) U/L Alkaline Phosphatase 74 (38-126) U/L Troponin I (0.000-0.034) ng/mL NT-Pro-B Natriuret Pep pg/mL Total Protein 6.6 (6.3-8.2) g/dL Albumin 4.2 (3.5-5.0) g/dL Lipase 241 (23-300) U/L 09/30/20 09/30/20 Range/Units 13:12 13:12 WBC (3.8-10.6) k/uL RBC (3.80-5.40) m/uL Hgb (11.4-16.0) gm/dL Hct (34.0-46.0) % MCV (80.0-100.0) fL MCH (25.0-35.0) pg MCHC (31.0-37.0) g/dL RDW (11.5-15.5) % Plt Count (150-450) k/uL MPV Neutrophils % % Lymphocytes % % Monocytes % % Eosinophils % % Basophils % % Neutrophils # (1.3-7.7) k/uL Lymphocytes # (1.0-4.8) k/uL Monocytes # (0-1.0) k/uL Eosinophils # (0-0.7) k/uL Basophils # (0-0.2) k/uL PT (9.0-12.0) sec INR (<1.2) APTT (22.0-30.0) sec Sodium (137-145) mmol/L Potassium (3.5-5.1) mmol/L Chloride (98-107) mmol/L Carbon Dioxide (22-30) mmol/L Anion Gap mmol/L BUN (7-17) mg/dL Creatinine (0.52-1.04) mg/dL Est GFR (CKD-EPI)AfAm (>60 ml/min/1.73 sqM) Est GFR (CKD-EPI)NonAf (>60 ml/min/1.73 sqM) Glucose (74-99) mg/dL Calcium (8.4-10.2) mg/dL Magnesium (1.6-2.3) mg/dL Total Bilirubin (0.2-1.3) mg/dL AST (14-36) U/L ALT (4-34) U/L Alkaline Phosphatase (38-126) U/L Troponin I 0.015 (0.000-0.034) ng/mL NT-Pro-B Natriuret Pep 370 pg/mL Total Protein (6.3-8.2) g/dL Albumin (3.5-5.0) g/dL Lipase (23-300) U/L Disposition Clinical Impression: Hyponatremia, Fall, Chest pain Disposition: ADMITTED IP TO THIS [facility] Condition: Stable Is patient prescribed a controlled substance at d/c from ED?: No Referrals: Rudi Hope DO [Primary Care Provider] - 1-2 days Decision to Admit Reason: Admit from EC Decision Date: 09/30/20 Decision Time: 15:53
[2020-09-30 13:30] LABS: Basophils # (A) 0.1 k/uL (0-0.2); Basophils % (A) 0 %; Eosinophils # (A) 0.1 k/uL (0-0.7); Eosinophils % (A) 1 %; HCT 46.9 % (34.0-46.0); HGB 15.5 gm/dL (11.4-16.0); Lymphocytes # (A) 1.5 k/uL (1.0-4.8); Lymphocytes % (A) 11 %; MCH 31.4 pg (25.0-35.0); Mean Platelet Volume 7.2; Monocytes # (A) 0.7 k/uL (0-1.0); Monocytes % (A) 5 %; Neutrophils # (A) 11.2 k/uL (1.3-7.7); Neutrophils % (A) 82 %; Platelet Count 253 k/uL (150-450); RBC 4.94 m/uL (3.80-5.40); RDW 13.9 % (11.5-15.5); WBC 13.7 k/uL (3.8-10.6)
[2020-09-30 13:39] LABS: Albumin 4.2 g/dL (3.5-5.0); Calcium 9.9 mg/dL (8.4-10.2); Magnesium 1.5 mg/dL (1.6-2.3); Potassium 4.1 mmol/L (3.5-5.1); Total Bilirubin 0.8 mg/dL (0.2-1.3); Total Protein 6.6 g/dL (6.3-8.2)
--- NOTE | 2020-09-30 13:44 | XR ---
EXAMINATION TYPE: XR chest 2V DATE OF EXAM: 09/30/2020 COMPARISON: 11/12/2019 TECHNIQUE: PA and lateral views submitted. HISTORY: Chest pain FINDINGS: The lungs are clear and there is no pneumothorax, pleural effusion, or focal pneumonia. Upper infla tion. Diffuse osteopenia and arthropathy of the shoulders. Postsurgical changes. Degenerative change of the spine. Hyperinflation compatible COPD. IMPRESSION: 1. No acute process.
[2020-09-30 13:47] LABS: INR 0.9 (<1.2); Partial Thromboplastin Time 24.3 sec (22.0-30.0)
[2020-09-30] MEDS ORDERED: ASPIRIN 325 MG TAB PO STA (14:13)
[2020-09-30] MEDS ORDERED: SODIUM CHLORIDE 0.9% 500 ML 500 ML IV ONE (14:20)
[2020-09-30] MEDS ORDERED: DIPHENOX-ATROP 2.5-0.025 MG 1 EACH TAB PO PRN (14:58)
[2020-09-30] MEDS ORDERED: ACETAMINOPHEN TAB 325 MG TAB PO PRN (14:58)
[2020-09-30] MEDS ORDERED: LACTOBACILLUS ACIDOPH & BULGAR 1 EACH PACKET PO PRN (14:58)
--- NOTE | 2020-09-30 15:05 | CT ---
EXAMINATION TYPE: CT chest wo con DATE OF EXAM: 09/30/2020 COMPARISON: 11/15/2019 HISTORY: Fall landing on back. Mid chest pain. CT DLP: 218.3 mGycm. Automated Exposure Control for Dose Reduction was Utilized. TECHNIQUE: CT scan of the thorax is performed without IV contrast. FINDINGS: LUNGS: The lungs are grossly clear, there is no concerning parenchymal mass or nodule identified. T here is no pleural effusion or pneumothorax seen. The tracheobronchial tree is patent. Subsegmental changes involving the lungs most typical of atelectasis. MEDIASTINUM: Lack of IV contrast is noted to limit evaluation for mediastinal and especially hilar ad enopathy. There are no definitive greater than 1 cm hilar or mediastinal lymph nodes. The heart is en larged and there is a tiny pericardial effusion. Atherosclerotic change of the aorta with ectasia.. OTHER: Postsurgical change involving the vertebral column multilevel degenerative changes. There are 2 mild superior endplate compression deformities not noted on the prior exam of indeterminate age. Ar tifact limits assessment of portions of the chest due to the metallic hardware.. IMPRESSION: 1. Age-indeterminate mild superior endplate compression fractures of the upper thoracic and mid thora cic vertebral segment. 2. Cardiomegaly with tiny pericardial effusion. 3. Aortic ectasia
[2020-09-30] MEDS ORDERED: HYDROcodone/APAP 5-325MG 1 EACH TAB PO STA (15:49)
[2020-09-30] MEDS ORDERED: HYDROcodone/APAP 5-325MG 1 EACH TAB PO PRN (15:50)
[2020-09-30] MEDS ORDERED: NALOXONE 0.4 MG/ML 1 ML VIAL IV PRN (15:50)
[2020-09-30] MEDS: SODIUM CHLORIDE 0.9% 1,000 ML IV SCH (18:14)
[2020-09-30] MEDS ORDERED: ATORVASTATIN 80 MG TAB PO SCH (21:00)
[2020-09-30] MEDS ORDERED: risperiDONE 0.25 MG TAB PO SCH (21:00)
[2020-09-30 23:01] VITALS: RESP 16
[2020-10-01] MEDS: SODIUM CHLORIDE 0.9% 1,000 ML IV SCH (06:02)
[2020-10-01] MEDS ORDERED: LEVOTHYROXINE 88 MCG TAB PO SCH (06:30)
[2020-10-01] MEDS ORDERED: PANTOPRAZOLE 40 MG TABLET PO SCH (07:30)
[2020-10-01 08:07] VITALS: BP 141/64; PULSE 55; TEMP 97.7
[2020-10-01] MEDS ORDERED: lisinopriL 5 MG TAB PO SCH (09:00)
[2020-10-01] MEDS ORDERED: METOPROLOL SUCCINATE (ER) 25 MG TAB.ER.24H PO SCH (09:00)
[2020-10-01] MEDS ORDERED: MULTIVITAMINS, THERA 1 EACH TAB PO SCH (09:00)
[2020-10-01] MEDS ORDERED: CHOLECALCIFEROL 25 MCG (1000 IU) TABLET PO SCH (09:00)
[2020-10-01 13:42] VITALS: BMI 18.3
--- NOTE | 2020-10-01 16:44 | P.HPIM ---
History of Present Illness H&P Date: 09/30/20 Chief Complaint: Chest pain History of presenting complaint: This is a pleasant 79-year-old patient who I saw in the ER with her family. She follows with Dr. Hope. Chronic stable medical conditions include cognitive impairment, hypothyroid, chronic low back pain, hypertension. History is mainly obtained by the and the daughter the bedside. Patient had a baseline is unsteady in her feet. Does fall. Patient presents with anterior chest wall pain. At the sternum. Patient had taken a fall in the morning. And patient did not remember the details. She is having pain in the sternum. It was rather obvious reproducible with time she moved it hurt. Her back pain is chronic. The pain did not radiate anywhere. No dizziness, lightheadedness no shortness of breath. Review of systems: GEN.: Tired EYES: None HEENT: None NECK: None RESPIRATORY: None CARDIOVASCULAR: None GASTROINTESTINAL: None GENITOURINARY: Incontinent MUSCULOSKELETAL: Joint pains LYMPHATICS: None HEMATOLOGICAL: None PSYCHIATRY: Forgetful NEUROLOGICAL: Poor balance Past medical history to include: Stroke, cognitive impairment, hypothyroid, osteoarthritis, gait dysfunction Family history: Kidney disease, skin cancer Social history: Homemaker. Lives with her . Patient smoking for close to 60 years about three-quarter packs a day. Has to [place] drinks a day. Unsteady and again does not use a cane and a walker Physical examination: VITAL SIGNS: 98, 72, 16, 140/75, 96% room air] GENERAL: BMI 18.3, decreased muscle mass, awake. EYES: Pupils equal. Conjunctiva normal. HEENT: External appearance of nose and ears normal, oral cavity grossly normal. NECK: JVD not raised; masses not palpable. HEART: First and second heart sounds are normal; no edema. LUNGS: Respiratory rate normal; decreased breath sound. ABDOMEN: Soft, nontender, liver spleen not palpable, no masses palpable. MUSCULAR skeletal: Tenderness over the lower sternum. Reproducible. Evidence of severe OA, wasting of muscles Other joints PSYCH: Patient is able to answer simple questions, awakel. NEUROLOGICAL: Cranial nerves grossly intact; no facial asymmetry, power and sensation grossly intact. LYMPHATICS: No lymph nodes palpable in the axilla and neck INVESTIGATIONS, reviewed in the clinical context: WBC 13.7 hemoglobin 15.5 platelets 253 sodium 128 potassium 4.1 creatinine 0.78 Troponin I 0.015, 0.013 ProBNP 370 EKG tracing personally reviewed by me-normal sinus rhythm. Poor LV progression Chest x-ray film personally reviewed by me-no obvious infiltrate. Osteopenia. Surgical changes. Hyperinflation Computed tomography scan of the chest without contrast: Age-indeterminate mild superior endplate compression fracture of the upper thoracic and midthoracic vertebral segment. Some cardiomegaly. Assessment and plan: -Patient comes in with acute chest pain localized to the sternum. Had a fall this morning. Reproducible. Was with any movement. Does not have cardiac features. -Moderate cognitive impairment likely from late onset Alzheimer's dementia -Mild protein calorie malnutrition from decreased oral intake Use nutritional supplements -Chronic gait dysfunction with history of falls at home We will order a cane upon discharge. Discussed with the and daughter -Essential hypertension Toprol-XL 25 mg daily, Zestril 5 mg a day -Hypothyroid Synthroid 88 g a day -Hyperlipidemia Lipitor 80 mg daily at bedtime Care was discussed at length with the and the daughter the bedside. Questions were answered. telemetry. If no cardiac symptoms overnight and patient should be able to be discharged tomorrow. Past Medical History Past Medical History: CVA/TIA, Memory Impairment, Thyroid Disorder Additional Past Medical History / Comment(s): chronic back pain, had stroke during back surgery-affected memory; balance wobbly since hip surgery Last Myocardial Infarction Date:: 2014 History of Any Multi-Drug Resistant Organisms: None Reported Past Surgical History: Appendectomy, Back Surgery, Orthopedic Surgery, Tonsillectomy Additional Past Surgical History / Comment(s): shoulder skin ca, knee surgery to left, ORIF left hip 2015, loop recorder insertion Past Anesthesia/Blood Transfusion Reactions: Postoperative Nausea & Vomiting (PONV) Additional Past Anesthesia/Blood Transfusion Reaction / Comment(s): jonny strophobia, trouble waking up Past Psychological History: No Psychological Hx Reported Smoking Status: Current every day smoker Past Alcohol Use History: Daily Past Drug Use History: None Reported - Past Family History Mother Family Medical History: Renal Disease Father Family Medical History: Cancer Additional Family Medical History / Comment(s): skin cancer, at age 93 from old age Medications and Allergies Home Medications Medication Instructions Recorded Confirmed Type Atorvastatin [Lipitor] 80 mg PO HS 12/24/15 09/30/20 History Multivit with Calcium,Iron,Min 1 tab PO DAILY 10/22/17 09/30/20 History [Women's Multivitamin] Levothyroxine Sodium [Synthroid] 88 mcg PO DAILY 11/12/19 09/30/20 History Metoprolol Succinate (ER) [Toprol 25 mg PO DAILY tab.er.24h 11/16/19 09/30/20 Rx XL] lisinopriL [Zestril] 5 mg PO DAILY tab 11/16/19 09/30/20 Rx risperiDONE [RisperDAL] 0.5 mg PO HS tab 11/16/19 09/30/20 Rx Famotidine 40 mg PO DAILY 09/30/20 09/30/20 History Allergies Allergy/AdvReac Type Severity Reaction Status Date / Time azithromycin AdvReac Nausea & Verified 09/30/20 16:44 [From Zithromax Z-Gomez] Vomiting INDOOR ENVIRONMENTAL Allergy Itching Uncoded 09/30/20 16:44 ALLERGIES Physical Exam Vitals: Vital Signs Temp Pulse Resp BP Pulse Ox 09/30/20 14:00 69 16 95 09/30/20 13:52 69 16 121/77 95 09/30/20 12:52 72 16 148/76 95 09/30/20 12:49 98.0 F 76 18 131/66 98 Intake and Output 09/30/20 09/30/20 09/30/20 06:59 14:59 22:59 Other: Weight 49.895 kg Results CBC & Chem 7: 09/30/20 13:12 09/30/20 13:12 Labs: Abnormal Lab Results - Last 24 Hours (Table) 09/30/20 09/30/20 Range/Units 13:12 13:12 WBC 13.7 H (3.8-10.6) k/uL Hct 46.9 H (34.0-46.0) % Neutrophils # 11.2 H (1.3-7.7) k/uL Sodium 128 L (137-145) mmol/L Chloride 93 L (98-107) mmol/L BUN 19 H (7-17) mg/dL Glucose 109 H (74-99) mg/dL Magnesium 1.5 L (1.6-2.3) mg/dL
--- NOTE | 2020-10-01 16:58 | P.DS ---
Providers Date of admission: 09/30/20 15:50 Expected date of discharge: 10/01/20 Attending physician: Eduin Harper Primary care physician: Rudi [facility] Hospital Course: Chief Complaint: Chest pain History of presenting complaint: This is a pleasant 79-year-old patient who I saw in the ER with her family. She follows with Dr. Hope. Chronic stable medical conditions include cognitive impairment, hypothyroid, chronic low back pain, hypertension. History is mainly obtained by the and the daughter the bedside. Patient had a baseline is unsteady in her feet. Does fall. Patient presents with anterior chest wall pain. At the sternum. Patient had taken a fall in the morning. And patient did not remember the details. She is having pain in the sternum. It was rather obvious reproducible with time she moved it hurt. Her back pain is chronic. The pain did not radiate anywhere. No dizziness, lightheadedness no shortness of breath. October 01: Laying in bed. Comfortable. Patient appears reproducible of the lower sternum with activity. No new symptoms. I talked to patient's son over the phone. She has got the power of litigation attorney associate over his mother at the patient and the father. He agrees that no further cardiac workup given her age and comorbidities. Especially this is a muscular skeletal penetration. Multiple fractures appeared to be chronic. I'm ordering a cane. Patient use a heating pad and Tylenol/icepack for local pain. Discussion and discharge planning more than 35 minutes Past medical history to include: Stroke, cognitive impairment, hypothyroid, osteoarthritis, gait dysfunction Family history: Kidney disease, skin cancer Social history: Homemaker. Lives with her . Patient smoking for close to 60 years about three-quarter packs a day. Has to [place] drinks a day. Unsteady and again does not use a cane and a walker Physical examination: VITAL SIGNS: He 7.7, 55, 16, 141/64, 93% room air GENERAL: BMI 18.3, decreased muscle mass, awake. EYES: Pupils equal. Conjunctiva normal. HEENT: External appearance of nose and ears normal, oral cavity grossly normal. NECK: JVD not raised; masses not palpable. HEART: First and second heart sounds are normal; no edema. LUNGS: Respiratory rate normal; decreased breath sound. ABDOMEN: Soft, nontender, liver spleen not palpable, no masses palpable. MUSCULAR skeletal: Tenderness over the lower sternum. Reproducible. Evidence of severe OA, wasting of muscles Other joints PSYCH: Patient is able to answer simple questions, awakel. INVESTIGATIONS, reviewed in the clinical context: WBC 13.7 hemoglobin 15.5 platelets 253 sodium 128 potassium 4.1 creatinine 0.78 Troponin I 0.015, 0.013 ProBNP 370 EKG tracing personally reviewed by me-normal sinus rhythm. Poor LV progression Chest x-ray film personally reviewed by me-no obvious infiltrate. Osteopenia. Surgical changes. Hyperinflation Computed tomography scan of the chest without contrast: Age-indeterminate mild superior endplate compression fracture of the upper thoracic and midthoracic vertebral segment. Some cardiomegaly. Assessment and plan: -Acute sternal pain, muscular schedule secondary to fall. Fracture ruled out. -Moderate cognitive impairment likely from late onset Alzheimer's dementia -Mild protein calorie malnutrition from decreased oral intake Use nutritional supplements -Chronic gait dysfunction with history of falls at home Cane ordered. -Essential hypertension Toprol-XL 25 mg daily, Zestril 5 mg a day -Hypothyroid Synthroid 88 g a day -Hyperlipidemia Lipitor 80 mg daily at bedtime -Mild protein calorie malnutrition from decreased oral intake. Encourage oral intake -Emphysema in a current smoker, asymptomatic Advised against smoking Disposition: Home Patient Condition at Discharge: Stable Plan - Discharge Summary Discharge Rx Participant: Yes New Discharge Prescriptions: Continue Atorvastatin [Lipitor] 80 mg PO HS Multivit with Calcium,Iron,Min [Women's Multivitamin] 1 tab PO DAILY Levothyroxine Sodium [Synthroid] 88 mcg PO DAILY risperiDONE [RisperDAL] 0.5 mg PO HS tab Metoprolol Succinate (ER) [Toprol XL] 25 mg PO DAILY tab.er.24h lisinopriL [Zestril] 5 mg PO DAILY tab Famotidine 40 mg PO DAILY Discharge Medication List Atorvastatin [Lipitor] 80 mg PO HS 12/24/15 [History] Multivit with Calcium,Iron,Min [Women's Multivitamin] 1 tab PO DAILY 10/22/17 [History] Levothyroxine Sodium [Synthroid] 88 mcg PO DAILY 11/12/19 [History] Metoprolol Succinate (ER) [Toprol XL] 25 mg PO DAILY tab.er.24h 11/16/19 [Rx] lisinopriL [Zestril] 5 mg PO DAILY tab 11/16/19 [Rx] risperiDONE [RisperDAL] 0.5 mg PO HS tab 11/16/19 [Rx] Famotidine 40 mg PO DAILY 09/30/20 [History] Follow up Appointment(s)/Referral(s): Rudi Hope DO [Primary Care Provider] - 1-2 days Patient Instructions/Handouts: Bradycardia (DC) Activity/Diet/Wound Care/Special Instructions: k-pad/ice pack prn
== END 2020-10-01 14:49 ==
LOC: EC 12:41 → 6NMEDSUR 15:50
PROVIDERS: ADMIT Hospitalist; ATTEND Hospitalist
DX: R07.2 Precordial pain (principal); E87.1 Hypo-osmolality and hyponatremia; E86.0 Dehydration; E44.1 Mild protein-calorie malnutrition; I11.9 Hypertensive heart disease without heart failure; I69.311 Memory deficit following cerebral infarction; R41.89 Other symptoms and signs involving cognitive functions and awareness; J43.9 Emphysema, unspecified; I77.819 Aortic ectasia, unspecified site; R26.9 Unspecified abnormalities of gait and mobility; W06.XXXA Fall from bed, initial encounter; E03.9 Hypothyroidism, unspecified; E78.5 Hyperlipidemia, unspecified; I44.4 Left anterior fascicular block; G89.29 Other chronic pain; M54.5 Low back pain; M48.50XA Collapsed vertebra, not elsewhere classified, site unspecified, initial encounter for fracture; M85.812 Other specified disorders of bone density and structure, left shoulder; M85.811 Other specified disorders of bone density and structure, right shoulder; M19.012 Primary osteoarthritis, left shoulder; M19.011 Primary osteoarthritis, right shoulder; F17.210 Nicotine dependence, cigarettes, uncomplicated; F40.240 Claustrophobia; Z91.81 History of falling; Z79.899 Other long term (current) drug therapy; Z79.890 Hormone replacement therapy; Z79.82 Long term (current) use of aspirin; Z88.1 Allergy status to other antibiotic agents; Z91.048 Other nonmedicinal substance allergy status; Z98.890 Other specified postprocedural states; Z87.81 Personal history of (healed) traumatic fracture; Z90.49 Acquired absence of other specified parts of digestive tract; I25.2 Old myocardial infarction; Z80.8 Family history of malignant neoplasm of other organs or systems; Z84.1 Family history of disorders of kidney and ureter
CPT/HCPCS: 96360; 99285; 36415; 93005; 83880; 80053; 83690; 83735; 84484; 85025; 85610; 85730; 71046; 71250; G0378 ×2

== ENCOUNTER 2020-11-03 09:05 | Observation (INO) | payer MEDICARE ==
[2020-11-03 10:22] LABS: Basophils # (A) 0.1 k/uL (0-0.2); Basophils % (A) 1 %; Eosinophils # (A) 0.1 k/uL (0-0.7); Eosinophils % (A) 1 %; HCT 42.3 % (34.0-46.0); HGB 14.1 gm/dL (11.4-16.0); Lymphocytes # (A) 1.3 k/uL (1.0-4.8); Lymphocytes % (A) 16 %; MCHC 33.4 g/dL (31.0-37.0); Mean Platelet Volume 6.9; Monocytes # (A) 0.5 k/uL (0-1.0); Monocytes % (A) 6 %; Neutrophils # (A) 6.2 k/uL (1.3-7.7); Neutrophils % (A) 76 %; Platelet Count 197 k/uL (150-450); RBC 4.55 m/uL (3.80-5.40); RDW 13.5 % (11.5-15.5); WBC 8.2 k/uL (3.8-10.6)
[2020-11-03 10:31] LABS: Partial Thromboplastin Time 24.2 sec (22.0-30.0); Prothrombin Time 10.7 sec (9.0-12.0)
[2020-11-03 10:43] LABS: ALT 16 U/L (4-34); AST 29 U/L (14-36); African American GFR (CKD) >90 (>60 ml/min/1.73 sqM); Albumin 3.6 g/dL (3.5-5.0); Alkaline Phosphatase 73 U/L (38-126); Anion Gap 6 mmol/L; Appearance,Urine Clear (Clear); Bilirubin,Urine Negative (Negative); Blood Urea Nitrogen 12 mg/dL (7-17); Blood,Urine Negative (Negative); Calcium 9.4 mg/dL (8.4-10.2); Carbon Dioxide 23 mmol/L (22-30); Chloride 97 mmol/L (98-107); Color,Urine Yellow; Creatine Kinase 28 U/L (30-135); Glucose 96 mg/dL (74-99); Glucose,Urine (UA) Negative (Negative); Ketones,Urine Negative (Negative); Leukocyte Esterase,Urine Negative (Negative); Nitrite,Urine Negative (Negative); Non-African American GFR(CKD) 87 (>60 ml/min/1.73 sqM); PH, Urine 6.5 (5.0-8.0); Protein,Urine Negative (Negative); Sodium 126 mmol/L (137-145); Total Bilirubin 0.8 mg/dL (0.2-1.3); Urobilinogen,Urine <2.0 mg/dL (<2.0)
--- NOTE | 2020-11-03 10:46 | XR ---
EXAMINATION TYPE: XR chest 2V DATE OF EXAM: 11/03/2020 COMPARISON: 09/30/2020 HISTORY: 80-year-old female syncope and pain, trauma from fall TECHNIQUE: AP and lateral views FINDINGS: Heart upper limits of normal in size. Hyperinflation. Mild interstitial prominence is unchanged. An u nusual seen along the medial left apex. Otherwise, no consolidation or pleural effusion. Thoracolumba r fusion hardware partially visualized. IMPRESSION: 1. COPD. 2. An unusual edge seen along the medial left apex. Unable to exclude a small pneumothorax.
--- NOTE | 2020-11-03 10:52 | ED ---
Fall HPI - General Chief Complaint: Fall Stated Complaint: fall, head injury Time Seen by Provider: 11/03/20 09:20 Source: patient Mode of arrival: wheelchair - History of Present Illness Initial Comments: Patient is an 80-year-old female who presents emergency department after she felt dizzy and fell. Patient is unsure she lost consciousness. was in the other room and heard a thump. He wanted to find her on the floor in the bedroom. She had hit the back side of her head on the dresser. Incident happened approximately an hour prior to arrival. She didn't take any medications for her symptoms. She is not on any blood thinners. There has been no confusion or vomiting from the patient. No headaches. The patient denies any visual changes. Denies any additional trauma or pain. She denies any chest pain or shortness of breath prior to the incident. No recent illnesses. No recent medication changes. No other alleviating, precipitating or modifying fa ctors - Related Data Home Medications Medication Instructions Recorded Confirmed Multivit with Calcium,Iron,Min 1 tab PO DAILY 10/22/17 11/03/20 [Women's Multivitamin] Levothyroxine Sodium [Synthroid] 88 mcg PO DAILY 11/12/19 11/03/20 Aspirin EC [Ecotrin Low Dose] 81 mg PO HS 11/03/20 11/03/20 Cholecalciferol [Vitamin D3 (25 50 mcg PO DAILY 11/03/20 11/03/20 Mcg = 1000 Iu)] Metoprolol Tartrate 25 mg DAILY 11/03/20 11/03/20 risperiDONE [RisperDAL] 0.5 mg HS 11/03/20 11/03/20 Previous Rx's Medication Instructions Recorded Acetaminophen Tab [Tylenol] 650 mg PO Q6HR PRN tab 11/04/20 Atorvastatin [Lipitor] 20 mg PO HS #30 tab 11/04/20 Psyllium Husk 100% [Metamucil 6 gm PO BID packet 11/04/20 Packet] lisinopriL [Zestril] 5 mg PO HS #30 tab 11/04/20 Allergies Allergy/AdvReac Type Severity Reaction Status Date / Time azithromycin AdvReac Nausea & Verified 11/03/20 10:31 [From Zithromax Z-Gomez] Vomiting INDOOR ENVIRONMENTAL Allergy Itching Uncoded 09/19/21 09:16 ALLERGIES Review of Systems ROS Statement: Those systems with pertinent positive or pertinent negative responses have been documented in the HPI. ROS Other: All systems not noted in ROS Statement are negative. Past Medical History Past Medical History: CVA/TIA, Memory Impairment, Thyroid Disorder Additional Past Medical History / Comment(s): chronic back pain, had stroke during back surgery-affected memory; balance wobbly since hip surgery Last Myocardial Infarction Date:: 2014 History of Any Multi-Drug Resistant Organisms: None Reported Past Surgical History: Appendectomy, Back Surgery, Orthopedic Surgery, Tonsillectomy Additional Past Surgical History / Comment(s): shoulder skin ca, knee surgery to left, ORIF left hip 2015, loop recorder insertion Past Anesthesia/Blood Transfusion Reactions: Postoperative Nausea & Vomiting (PONV) Additional Past Anesthesia/Blood Transfusion Reaction / Comment(s): claustrophobia, trouble waking up Past Psychological History: No Psychological Hx Reported Smoking Status: Current every day smoker Past Alcohol Use History: Daily Past Drug Use History: None Reported - Past Family History Mother Family Medical History: Renal Disease Father Family Medical History: Cancer Additional Family Medical History / Comment(s): skin cancer, at age 93 from old age General Exam Limitations: no limitations General appearance: alert, in no apparent distress Head exam: Present: normocephalic, normal inspection, other (posterior scalp laceration with underlying hematoma - 3.5 x 1.0 cm ) Eye exam: Present: normal appearance, PERRL, EOMI. Absent: scleral icterus, conjunctival injection, periorbital swelling ENT exam: Present: normal exam, mucous membranes moist Neck exam: Present: normal inspection. Absent: tenderness, meningismus, lymphadenopathy Respiratory exam: Present: normal lung sounds bilaterally. Absent: respiratory distress, wheezes, rales, rhonchi, stridor Cardiovascular Exam: Present: regular rate, normal rhythm, normal heart sounds. Absent: systolic murmur, diastolic murmur, rubs, gallop, clicks GI/Abdominal exam: Present: soft, normal bowel sounds. Absent: distended, tenderness, guarding, rebound, rigid Extremities exam: Present: normal inspection, full ROM, normal capillary refill. Absent: tenderness, pedal edema, joint swelling, calf tenderness Back exam: Present: normal inspection Neurological exam: Present: alert, oriented X3, CN II-XII intact Psychiatric exam: Present: normal affect, normal mood Skin exam: Present: warm, dry, intact, normal color. Absent: rash Course Vital Signs 11/03/20 11/03/20 11/03/20 09:10 10:19 12:35 Temperature 97.9 F 98.2 F Pulse Rate 63 72 Pulse Rate [ 88 Left Standing Pulse Oximetery ] Pulse Rate [ 64 Left Supine Pulse Oximetery ] Respiratory 18 18 Rate Blood Pressure 115/81 158/87 Blood Pressure 144/81 [Left Arm Standing] Blood Pressure 150/71 [Left Arm Supine] O2 Sat by Pulse 94 L 99 Oximetry Procedures - Laceration Laceration #1 Consent Obtained: verbal consent Indication: laceration Site: scalp Size (cm): 3 (cm) Description: linear Depth: simple, single layer Anesthetic Used: lidocaine 1%, with epi Anesthesia Technique: local infiltration Amount (mls): 6 (cc) Pre-repair: wound explored, irrigated extensively, deep structures intact Number of Sutures: 3 (sung) Patient Tolerated Procedure: well, no complications Medical Decision Making - Medical Decision Making Upon arrival patient is placed into room 2. A thorough history and physical exam was performed. IV is established due to patient's possible syncopal episode and laboratory studies were conducted. Patient went over for CT of her brain and cervical spine. Chest x-ray is also performed. CT of the brain demonstrates a left posterior scalp hematoma. Mild cerebral atrophy and mod erate burden of chronic small vessel ischemic disease. No acute intracranial abnormality. Mild superior endplate deformity T2. Moderate to advanced multilevel spondylitic change. Chest x-ray demonstrates COPD, unusual edge seen on the medial left apex. Unable to exclude small pneumothorax. Due to this abnormal CT finding a chest CT is performed which demonstrates no pneumothorax or acute bony process. Nondisplaced fractures of the inferior sternomanubrium. Minimal superior endplate deformity of T2 and T7. Results are discussed with the family. states that the sternal fracture and thoracic fractures are from a fall 3 weeks ago. Patient does not have any acute pain. Patient's wound was evaluated in a bloodless field. 3 sung were placed. Patient tolerated the procedure well. I spoke with Dr. Harper who agreed to admit the patient for hyponatremia, syncope, and head injury. Patient agreed to this. She was taken to the floor in stable condition - Lab Data Result diagrams: 11/04/20 06:07 11/04/20 06:07 Lab Results 11/03/20 11/03/20 11/03/20 Range/Units 10:13 10:13 10:13 WBC 8.2 (3.8-10.6) k/uL RBC 4.55 (3.80-5.40) m/uL Hgb 14.1 (11.4-16.0) gm/dL Hct 42.3 (34.0-46.0) % MCV 93.0 (80.0-100.0) fL MCH 31.0 (25.0-35.0) pg MCHC 33.4 (31.0-37.0) g/dL RDW 13.5 (11.5-15.5) % Plt Count 197 (150-450) k/uL MPV 6.9 Neutrophils % 76 % Lymphocytes % 16 % Monocytes % 6 % Eosinophils % 1 % Basophils % 1 % Neutrophils # 6.2 (1.3-7.7) k/uL Lymphocytes # 1.3 (1.0-4.8) k/uL Monocytes # 0.5 (0-1.0) k/uL Eosinophils # 0.1 (0-0.7) k/uL Basophils # 0.1 (0-0.2) k/uL PT 10.7 (9.0-12.0) sec INR 1.0 (<1.2) APTT 24.2 (22.0-30.0) sec Sodium (137-145) mmol/L Potassium (3.5-5.1) mmol/L Chloride (98-107) mmol/L Carbon Dioxide (22-30) mmol/L Anion Gap mmol/L BUN (7-17) mg/dL Creatinine (0.52-1.04) mg/dL Est GFR (CKD-EPI)AfAm (>60 ml/min/1.73 sqM) Est GFR (CKD-EPI)NonAf (>60 ml/min/1.73 sqM) Glucose (74-99) mg/dL Calcium (8.4-10.2) mg/dL Total Bilirubin (0.2-1.3) mg/dL AST (14-36) U/L ALT (4-34) U/L Alkaline Phosphatase (38-126) U/L Creatine Kinase (30-135) U/L Troponin I (0.000-0.034) ng/mL Total Protein (6.3-8.2) g/dL Albumin (3.5-5.0) g/dL Urine Color Yellow Urine Appearance Clear (Clear) Urine pH 6.5 (5.0-8.0) Ur Specific [place] 1.010 (1.001-1.035) Urine Protein Negative (Negative) Urine Glucose (UA) Negative (Negative) Urine Ketones Negative (Negative) Urine Blood Negative (Negative) Urine Nitrite Negative (Negative) Urine Bilirubin Negative (Negative) Urine Urobilinogen <2.0 (<2.0) mg/dL Ur Leukocyte Esterase Negative (Negative) 11/03/20 11/03/20 Range/Units 10:13 10:13 WBC (3.8-10.6) k/uL RBC (3.80-5.40) m/uL Hgb (11.4-16.0) gm/dL Hct (34.0-46.0) % MCV (80.0-100.0) fL MCH (25.0-35.0) pg MCHC (31.0-37.0) g/dL RDW (11.5-15.5) % Plt Count (150-450) k/uL MPV Neutrophils % % Lymphocytes % % Monocytes % % Eosinophils % % Basophils % % Neutrophils # (1.3-7.7) k/uL Lymphocytes # (1.0-4.8) k/uL Monocytes # (0-1.0) k/uL Eosinophils # (0-0.7) k/uL Basophils # (0-0.2) k/uL PT (9.0-12.0) sec INR (<1.2) APTT (22.0-30.0) sec Sodium 126 L (137-145) mmol/L Potassium 4.0 (3.5-5.1) mmol/L Chloride 97 L (98-107) mmol/L Carbon Dioxide 23 (22-30) mmol/L Anion Gap 6 mmol/L BUN 12 (7-17) mg/dL Creatinine 0.59 (0.52-1.04) mg/dL Est GFR (CKD-EPI)AfAm >90 (>60 ml/min/1.73 sqM) Est GFR (CKD-EPI)NonAf 87 (>60 ml/min/1.73 sqM) Glucose 96 (74-99) mg/dL Calcium 9.4 (8.4-10.2) mg/dL Total Bilirubin 0.8 (0.2-1.3) mg/dL AST 29 (14-36) U/L ALT 16 (4-34) U/L Alkaline Phosphatase 73 (38-126) U/L Creatine Kinase 28 L (30-135) U/L Troponin I <0.012 (0.000-0.034) ng/mL Total Protein 6.0 L (6.3-8.2) g/dL Albumin 3.6 (3.5-5.0) g/dL Urine Color Urine Appearance (Clear) Urine pH (5.0-8.0) Ur Specific [place] (1.001-1.035) Urine Protein (Negative) Urine Glucose (UA) (Negative) Urine Ketones (Negative) Urine Blood (Negative) Urine Nitrite (Negative) Urine Bilirubin (Negative) Urine Urobilinogen (<2.0) mg/dL Ur Leukocyte Esterase (Negative) - EKG Data EKG Comments: EKG demonstrates a sinus rhythm with ventricular rate of 66. NE interval is 180. QRS 100. QTC of 425. Inverted T-wave in [address]VF. No acute ST segment elevations Disposition Clinical Impression: Concussion, Syncope, Occipital scalp laceration, Hyponatremia Disposition: ADMITTED IP TO THIS HOSP Condition: Stable Is patient prescribed a controlled substance at d/c from ED?: No Decision to Admit Reason: Admit from EC Decision Date: 11/03/20 Decision Time: 12:56
--- NOTE | 2020-11-03 11:03 | CT ---
EXAMINATION TYPE: CT brain alvaro ewbb con DATE OF EXAM: 11/03/2020 COMPARISON: 11/12/2019 HISTORY: 80-year-old female syncope, struck head on top of dresser CT DLP: 1306 mGycm Automated exposure control for dose reduction was used. Technique: Examination of the head was done in axial plane without intravenous contrast. Coronal and sagittal reconstructions performed. CT of the cervical spine was obtained in axial plane without intravenous injection of contrast mater ial. Coronal and sagittal reformatted images were obtained from the axial views for evaluation of f ractures, spinal alignment and canal. FINDINGS: Head: There is no evidence of acute intracranial hemorrhage, acute ischemic changes, mass, mass-effect, or extra-axial fluid collection. There is no effacement of cerebral sulci or basal subarachnoid cister ns. There is no hydrocephalus. There is no midline shift. Lindsey-white matter distinction is preserv ed. There is a superior posterior left scalp hematoma no underlying calvarial fracture. Mucosal thickening posterior left ethmoid air cells. Mastoid air cells well pneumatized. Orbits and g lobes are intact. Atherosclerotic calcifications within the carotid siphons. Moderate patchy and confluent white matter hypodensities and both cerebral hemispheres. Mild generalized supratentorial volume loss. Cervical spine: No craniocervical junction anomaly, predental space widening, or prevertebral soft tissue swelling. Hypertrophic facet and uncovertebral joint arthropathy throughout. Moderate distention of the degenerative changes especially C5-C7 levels. Scattered ligamentum flavum thickening. Degenerative grade 1 anterolisthesis C3-C4, C4-C5, and C7-T1. Mild multilevel spinal canal stenosis. New mild superior endplate deformity of T2 compared to 11/12/2019 without any surrounding soft tissue swelling or discrete fracture lucency seen. No additional acute fracture is identified. Visualized upper chest shows mildly ectatic upper descending thoracic aorta at 3.0 cm. No appreciable apical pneumothorax. Sagittal and coronal reformatted images confirm above findings. COMBINED IMPRESSION: 1. Left posterior superior scalp hematoma. There is mild cerebral atrophy and moderate burden of public transit specialist nikki small vessel ischemic disease. No acute intracranial abnormality seen. 2. Mild superior endplate deformity of T2 is new compared to 11/12/2019. However, no surrounding soft tissue swelling or discrete fracture line is seen. This is favored to be a chronic (though again, new from 11/12/2019) rather than an acute injury. Correlate for any point tenderness at this level. 3. Moderate to advanced multilevel spondylotic change with degenerative grade 1 anterolisthesis C3-C4 , C4-C5, and C7-T1.
[2020-11-03] MEDS ORDERED: RX INFO: IV CONTRAST WAS GIVEN 1 EACH MISC MISCELLANE PRN (11:30)
[2020-11-03] MEDS: SODIUM CHLORIDE 0.9% 1,000 ML IV SCH (11:56)
--- NOTE | 2020-11-03 12:12 | CT ---
EXAMINATION TYPE: CT chest w con DATE OF EXAM: 11/03/2020 COMPARISON: Radiograph same day HISTORY: 80-year-old female Fall, possible Lt sided pneumothorax TECHNIQUE: Contiguous axial scanning of the chest after the administration of 100 mL of Isovue 300. Coronal/sagittal reconstructions performed. CT DLP: 244.9mGycm. Automatic exposure control utilized for a dose reduction. FINDINGS: The heart is upper limits of normal in size without pericardial effusion. Ectatic aortic root at 3.7 cm. 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 Scattered mild to mod erate prostatic calcifications within the thoracic aorta with a short vessel branching anatomy. No thoracic lymphadenopathy by CT size criteria. Very mild centrilobular emphysema. Strandy bibasilar atelectasis. No consolidation or pleural effusio n. No pneumothorax. Visualized upper abdomen is prominent distention of the IVC suggesting prominent fluid hydration. Thoracolumbar fusion hardware. Mild superior endplate deformity of T2, T5, and T7 noted. T9 lucent le iliana. The T2 and T7 superior endplate deformities are is new from 09/30/2020. Possible subtle paravert ebral soft tissue thickening at both of these levels on axial images. T9 lucency was present back to 11/15/2019 suggesting a fatty matrix hemangioma. Possible lucent lesion inferior sternal manubrium with associated pathologic fracture and some mild s oft tissue swelling, axial image 15 through 18 and sagittal image 53. IMPRESSION: 1. No pneumothorax or acute pulmonary process. COPD with mild emphysema. 2. However, there is a nondisplaced fracture through the inferior sternal manubrium. Additional lucen cy within the bone here may relate to osteopenia. Pathologic fracture secondary to underlying lytic l esion is difficult to exclude at this time. Consider workup to exclude any primary neoplasm. 3. Minimal superior endplate deformities of T2 and T7 are also noted to be new from 09/30/2020 suggest ing acute to subacute endplate fractures.
[2020-11-03] MEDS ORDERED: ACETAMINOPHEN TAB 325 MG TAB PO PRN (12:56)
[2020-11-03] MEDS ORDERED: NALOXONE 0.4 MG/ML 1 ML VIAL IV PRN (12:56)
[2020-11-03] MEDS ORDERED: MORPHINE SULFATE 2 MG/ML SYRINGE IVP ONE (12:57)
[2020-11-03] MEDS ORDERED: ONDANSETRON 4 MG/2 ML VIAL IVP STA (13:17)
--- NOTE | 2020-11-03 16:01 | P.HPIM ---
History of Present Illness H&P Date: 11/03/20 Chief Complaint: Fall History of presenting complaint: This is a pleasant 80-year-old patient who I saw in the ER , follows with Dr. Hope. Chronic stable medical conditions include cognitive impairment, hypothyroid, chronic low back pain, hypertension. History of predominantly obtained by the ER physician and patient's son who I spoke over the phone. Patient's been having intermittent falls at home. Patient has been unsteady on her feet. Does not eat much. Presented with a fall falling backwards and bumping her scalp. Had a laceration and 3 sung were placed in the ER. Patient can only answer simple questions. Patient's TSH was checked with her PCP not too long ago and was within normal range. Patient denies any cough or shortness of breath. No urinary symptoms. Does feel a bit tired. Patient does get intermittent diarrhea. Review of systems: GEN.: Tired, decreased appetite EYES: None HEENT: None NECK: None RESPIRATORY: None CARDIOVASCULAR: None GASTROINTESTINAL: Intermittent diarrhea GENITOURINARY: Incontinent MUSCULOSKELETAL: Joint pains LYMPHATICS: None HEMATOLOGICAL: None PSYCHIATRY: Forgetful NEUROLOGICAL: Poor balance Past medical history to include: Stroke, cognitive impairment, hypothyroid, osteoarthritis, gait dysfunction Family history: Kidney disease, skin cancer Social history: Homemaker. Lives with her . Patient smoking for close to 60 years about three-quarter packs a day. Has 2 [place] drinks a day. Unsteady and again does not use a cane and a walker Physical examination: VITAL SIGNS: 97.8, 64, 18, 170/70, 95% room air GENERAL: BMI 19.6, decreased muscle mass, awake. EYES: Pupils equal. Conjunctiva normal. HEENT: External appearance of nose and ears normal, oral cavity grossly normal. NECK: JVD not raised; masses not palpable. HEART: First and second heart sounds are normal; no edema. LUNGS: Respiratory rate normal; decreased breath sound. ABDOMEN: Soft, nontender, liver spleen not palpable, no masses palpable. MUSCULAR skeletal: Evidence of severe OA, wasting of muscles PSYCH: Patient is able to answer simple questions, awake. NEUROLOGICAL: Cranial nerves grossly intact; no facial asymmetry, power and sensation grossly intact. LYMPHATICS: No lymph nodes palpable in the axilla and neck INVESTIGATIONS, reviewed in the clinical context: WBC 8.2 hemoglobin 14.1 platelets 197 sodium 126 potassium 4 BUN 12 creatinine 0.59 UA negative Coronavirus [PCR]: Not detected EKG tracing personally reviewed by me-normal sinus rhythm, poor R-wave progression. Nonspecific T-wave changes. Chest x-ray film personally reviewed by me-hyperinflated. No infiltrates CT chest with contrast: Thoracolumbar fusion hardware. T2 and T7 superior endplate deformities a new from a month ago. Assessment and plan: -Patient with having intermittent falls at home. Note that the patient does not eat or drink much. Sodium is low. He is on Lipitor. Has muscle wasting. -Hyponatremia Normal saline. Avoid free fluid. -Moderate cognitive impairment likely from late onset Alzheimer's dementia -Mild protein calorie malnutrition from decreased oral intake Use nutritional supplements -Chronic gait dysfunction with history of falls at home PT OT -Essential hypertension Lopressor 25 mg twice a day. -Hypothyroid Synthroid 88 g a day -Hyperlipidemia Decrease Lipitor 20 mg daily at bedtime Care was discussed with the patient's son over the phone. We'll cut back Lipitor to 20 mg. Lopressor 25 mg twice a day. PTOT. Some IV fluids. Check serum osmolality. Fall precautions. Add Metamucil to bulk up the stool. Past Medical History Past Medical History: CVA/TIA, Memory Impairment, Thyroid Disorder Additional Past Medical History / Comment(s): chronic back pain, had stroke during back surgery-affected memory; balance wobbly since hip surgery Last Myocardial Infarction Date:: 2014 History of Any Multi-Drug Resistant Organisms: None Reported Past Surgical History: Appendectomy, Back Surgery, Orthopedic Surgery, Tonsillectomy Additional Past Surgical History / Comment(s): shoulder skin ca, knee surgery to left, ORIF left hip 2015, loop recorder insertion Past Anesthesia/Blood Transfusion Reactions: Postoperative Nausea & Vomiting (PONV) Additional Past Anesthesia/Blood Transfusion Reaction / Comment(s): claustrophobia, trouble waking up Past Psychological History: No Psychological Hx Reported Smoking Status: Current every day smoker Past Alcohol Use History: Daily Additional Past Alcohol Use History / Comment(s): started smoking at age 19 currently smoked 1/2 -3/4 ppd. drinks 1 [place] per day Past Drug Use History: None Reported - Past Family History Mother Family Medical History: Renal Disease Father Family Medical History: Cancer Additional Family Medical History / Comment(s): skin cancer, at age 93 from old age Medications and Allergies Home Medications Medication Instructions Recorded Confirmed Type Atorvastatin [Lipitor] 40 mg PO HS 12/24/15 11/03/20 History Multivit with Calcium,Iron,Min 1 tab PO DAILY 10/22/17 11/03/20 History [Women's Multivitamin] Levothyroxine Sodium [Synthroid] 88 mcg PO DAILY 11/12/19 11/03/20 History Aspirin EC [Ecotrin Low Dose] 81 mg PO HS 11/03/20 11/03/20 History Cholecalciferol [Vitamin D3 (25 50 mcg PO DAILY 11/03/20 11/03/20 History Mcg = 1000 Iu)] Diphenoxylate HCl/Atropine 1 - 2 tab PO QID PRN 11/03/20 11/03/20 History [Lomotil 2.5-0.025 mg Tablet] Metoprolol Tartrate 25 mg DAILY 11/03/20 11/03/20 History risperiDONE [RisperDAL] 0.5 mg HS 11/03/20 11/03/20 History Allergies Allergy/AdvReac Type Severity Reaction Status Date / Time azithromycin AdvReac Nausea & Verified 11/03/20 10:31 [From Zithromax Z-Gomez] Vomiting INDOOR ENVIRONMENTAL Allergy Itching Uncoded 11/03/20 09:16 ALLERGIES Physical Exam Vitals: Vital Signs Temp Pulse Pulse Pulse Pulse Resp BP 11/03/20 14:56 64 18 11/03/20 14:38 97.8 F 64 18 11/03/20 12:35 98.2 F 72 18 158/87 11/03/20 10:19 88 64 11/03/20 09:10 97.9 F 63 18 115/81 BP BP BP Pulse Ox 11/03/20 14:56 11/03/20 14:38 170/70 95 11/03/20 12:35 99 11/03/20 10:19 144/81 150/71 11/03/20 09:10 94 L Intake and Output 11/03/20 11/03/20 11/03/20 06:59 14:59 22:59 Other: Voiding Method Toilet Incontinent Weight 53.524 kg Results CBC & Chem 7: 11/03/20 10:13 09/19/21 10:13 Labs: Abnormal Lab Results - Last 24 Hours (Table) 11/03/20 Range/Units 10:13 Sodium 126 L (137-145) mmol/L Chloride 97 L (98-107) mmol/L Creatine Kinase 28 L (30-135) U/L Total Protein 6.0 L (6.3-8.2) g/dL Thrombosis Risk Factor Assmnt - Choose All That Apply Any of the Below Risk Factors Present?: Yes Each Factor Represents 1 point: Abnormal pulmonary function (COPD) Other Risk Factors: Yes Each Risk Factor Represents 3 Points: Age 75 years or older Other congenital or acquired thrombophilia - If yes, enter type in comment: No Thrombosis Risk Factor Assessment Total Risk Factor Score: 4 Thrombosis Risk Factor Assessment Level: Moderate Risk
[2020-11-03] MEDS: METOPROLOL TARTRATE 25 MG TAB PO SCH (19:29)
[2020-11-03] MEDS: PSYLLIUM HUSK 100% 6 GM PACKET PO SCH (19:29)
[2020-11-03] MEDS ORDERED: lisinopriL 5 MG TAB PO SCH (21:00)
[2020-11-03] MEDS ORDERED: risperiDONE 0.5 MG TAB PO SCH (21:00)
[2020-11-03] MEDS ORDERED: ASPIRIN 81 MG PO SCH (21:00)
[2020-11-03] MEDS ORDERED: ATORVASTATIN 80 MG TAB PO SCH (21:00)
[2020-11-03] MEDS ORDERED: ATORVASTATIN 20 MG TAB PO SCH (21:00)
[2020-11-04] MEDS: SODIUM CHLORIDE 0.9% 1,000 ML IV SCH (02:25)
[2020-11-04] MEDS ORDERED: LEVOTHYROXINE 88 MCG TAB PO SCH (06:30)
[2020-11-04 07:40] VITALS: BP 149/86; PULSE 58; RESP 17; TEMP 96.7
[2020-11-04] MEDS ORDERED: MULTIVITAMINS, THERA 1 EACH TAB PO SCH (09:00)
[2020-11-04] MEDS ORDERED: CHOLECALCIFEROL 25 MCG (1000 IU) TABLET PO SCH (09:00)
[2020-11-04 09:05] LABS: Basophils # (A) 0.06 X 10*3/uL (0.00-0.10); Basophils % (A) 0.8 %; Eosinophils # (A) 0.09 X 10*3/uL (0.04-0.35); Eosinophils % (A) 1.2 %; HCT 35.9 % (37.2-46.3); Lymphocytes # (A) 1.87 X 10*3/uL (0.90-5.00); Lymphocytes % (A) 24.9 %; MCH 30.2 pg (27.0-32.0); MCHC 33.4 g/dL (32.0-37.0); MCV 90.4 fL (80.0-97.0); Mean Platelet Volume 9.6 fL (9.5-12.2); Monocytes # (A) 0.67 X 10*3/uL (0.20-1.00); Monocytes % (A) 8.9 %; Neutrophils # (A) 4.78 X 10*3/uL (1.80-7.70); Neutrophils % (A) 63.8 %; Platelet Count 173 X 10*3/uL (140-440); RBC 3.97 X 10*6/uL (4.10-5.20); RDW 14.2 % (11.5-14.5)
[2020-11-04] MEDS: PSYLLIUM HUSK 100% 6 GM PACKET PO SCH (09:24)
[2020-11-04] MEDS: METOPROLOL TARTRATE 25 MG TAB PO SCH (09:27)
[2020-11-04 10:00] LABS: African American GFR (CKD) 99.8 (60.0-200.0); Anion Gap 7.4 mmol/L (4.00-12.00); Calcium 8.6 mg/dL (8.7-10.3); Carbon Dioxide 23.6 mmol/L (21.6-31.8); Non-African American GFR(CKD) 86.1 (60.0-200.0); Potassium 3.5 mmol/L (3.5-5.5)
[2020-11-04] MEDS ORDERED: BACITRACIN OINT 1 EACH PACKET TOPICAL SCH (11:30)
--- NOTE | 2020-11-04 13:53 | ECHOF ---
Referral Reason: MEASUREMENTS -------- HEIGHT: 165.1 cm WEIGHT: 53.5 kg BP: 119/67 RVIDd: 2.8 cm (< 3.3) IVSd: 1.1 cm (0.6 - 1.1) LVIDd: 4.6 cm (3.9 - 5.3) LVPWd: 1.1 cm (0.6 - 1.1) IVSs: 1.6 cm LVIDs: 2.9 cm LVPWs: 1.6 cm LA Diam: 2.8 cm (2.7 - 3.8) LAESV Index (A-L): 24.47 ml/m Ao Diam: 3.5 cm (2.0 - 3.7) AV Cusp: 2.2 cm (1.5 - 2.6) MV EXCURSION: 9.414 mm (> 18.000) MV EF SLOPE: 28 mm/s (70 - 150) EPSS: 1.4 cm MV E Masood: 0.49 m/s MV DecT: 280 ms MV A Masood: 0.96 m/s MV E/A Ratio: 0.51 AR PHT: 700 ms RAP: 5.00 mmHg RVSP: 30.27 mmHg FINDINGS -------- Sinus rhythm. This was a technically adequate study. The left ventricular size is normal. There is borderline concentric left ventricular hypertrophy. Overall left ventricular systolic function is normal with, an EF between 55 - 60 %. The diastolic filling pattern is normal for the age of the patient 11.13. The right ventricle is normal in size. Normal LA size by volume 22+/-6 ml/m2. The right atrial size is normal. Interatrial and interventricular septum intact. Aortic valve is trileaflet and is mildly thickened. There is [id number] aortic regurgitation. Mild mitral annular calcification present. Mild mitral regurgitation is present. Mild tricuspid regurgitation present. Right ventricular systolic pressure is normal at < 35 mmHg. The pulmonic valve was not well visualized. The aortic root size is normal. Normal inferior vena cava with normal inspiratory collapse consistent with estimated right atrial pre ssure of 5 mmHg. There is no pericardial effusion. CONCLUSIONS -------- 1. There is borderline concentric left ventricular hypertrophy. 2. Overall left ventricular systolic function is normal with, an EF between 55 - 60 %. 3. Normal LA size by volume 22+/-6 ml/m2. 4. There is [id number]-fwsdtemr aortic regurgitation. 5. Mild mitral regurgitation is present. 6. Mild tricuspid regurgitation present. 7. There is no pericardial effusion. SENIOR NET WEB DEVELOPER: Tonie Perez RDCS
--- NOTE | 2020-11-04 16:00 | P.DS ---
Providers Date of admission: 11/03/20 12:56 Expected date of discharge: 11/04/20 Attending physician: Eduin Harper Primary care physician: Rudi Hope [facility] Course: Chief Complaint: Fall History of presenting complaint: This is a pleasant 80-year-old patient who I saw in the ER , follows with Dr. Hope. Chronic stable medical conditions include cognitive impairment, hypothyroid, chronic low back pain, hypertension. History of predominantly obtained by the ER physician and patient's son who I spoke over the phone. Patient's been having intermittent falls at home. Patient has been unsteady on her feet. Does not eat much. Presented with a fall falling backwards and bumping her scalp. Had a laceration and 3 sung were placed in the ER. Patient can only answer simple questions. Patient's TSH was checked with her PCP not too long ago and was within normal range. Patient denies any cough or shortness of breath. No urinary symptoms. Does feel a bit tired. Patient does get intermittent diarrhea. Admitted with syncope. [place] to be vasovagal. Hyponatremia treated with IV fluids. Dose of Lipitor cutback from 80 mg to 20 mg. Blood pressure is running on the high side hence medications adjusted. bacitracin ointment to the scalp laceration. Metamucil was added to bulk up patient stool that is intermittently loose Past medical history to include: Stroke, cognitive impairment, hypothyroid, osteoarthritis, gait dysfunction Family history: Kidney disease, skin cancer Social history: Homemaker. Lives with her . Patient smoking for close to 60 years about three-quarter packs a day. Has 2 [place] drinks a day. Unsteady and again does not use a cane and a walker Physical examination: VITAL SIGNS: 96.7, 58, 17, 1 4996, 97% room air GENERAL: decreased muscle mass, awake. EYES: Pupils equal. Conjunctiva normal. NECK: JVD not raised; masses not palpable. HEART: First and second heart sounds are normal; no edema. LUNGS: Respiratory rate normal; decreased breath sound. ABDOMEN: Soft, nontender, liver spleen not palpable, no masses palpable. MUSCULAR skeletal: Evidence of severe OA, wasting of muscles PSYCH: Patient is able to answer simple questions, awake. NEUROLOGICAL: Cranial nerves grossly intact; no facial asymmetry, power and sensation grossly intact. INVESTIGATIONS, reviewed in the clinical context: November 04: White count 7.5 hemoglobin 12 potassium 3.5 sodium 131 WBC 8.2 hemoglobin 14.1 platelets 197 sodium 126 potassium 4 BUN 12 creatinine 0.59 UA negative Coronavirus [PCR]: Not detected EKG tracing personally reviewed by me-normal sinus rhythm, poor R-wave progression. Nonspecific T-wave changes. Chest x-ray film personally reviewed by me-hyperinflated. No infiltrates CT chest with contrast: Thoracolumbar fusion hardware. T2 and T7 superior endplate deformities a new from a month ago. Assessment and plan: -Syncope likely from vasovagal. -Hyponatremia: Improved Normal saline. Avoid free fluid. -Moderate cognitive impairment likely from late onset Alzheimer's dementia -Mild protein calorie malnutrition from decreased oral intake Use nutritional supplements -Chronic gait dysfunction with history of falls at home PT OT -Essential hypertension Lopressor 25 mg twice a day. Lisinopril 5 mg daily at bedtime -Hypothyroid Synthroid 88 g a day -Hyperlipidemia Decrease Lipitor 20 mg daily at bedtime Disposition: Home Patient Condition at Discharge: Stable Plan - Discharge Summary Discharge Rx Participant: No New Discharge Prescriptions: New Atorvastatin [Lipitor] 20 mg PO HS #30 tab Acetaminophen Tab [Tylenol] 650 mg PO Q6HR PRN tab PRN Reason: Mild Pain Or Fever > 100.5 Psyllium Husk 100% [Metamucil Packet] 6 gm PO BID packet lisinopriL [Zestril] 5 mg PO HS #30 tab Continue Multivit with Calcium,Iron,Min [Women's Multivitamin] 1 tab PO DAILY Levothyroxine Sodium [Synthroid] 88 mcg PO DAILY Metoprolol Tartrate 25 mg DAILY risperiDONE [RisperDAL] 0.5 mg HS Aspirin EC [Ecotrin Low Dose] 81 mg PO HS Cholecalciferol [Vitamin D3 (25 Mcg = 1000 Iu)] 50 mcg PO DAILY Discontinued Atorvastatin [Lipitor] 40 mg PO HS Diphenoxylate HCl/Atropine [Lomotil 2.5-0.025 mg Tablet] 1 - 2 tab PO QID PRN PRN Reason: Diarrhea Discharge Medication List Multivit with Calcium,Iron,Min [Women's Multivitamin] 1 tab PO DAILY 10/22/17 [History] Levothyroxine Sodium [Synthroid] 88 mcg PO DAILY 11/12/19 [History] Aspirin EC [Ecotrin Low Dose] 81 mg PO HS 11/03/20 [History] Cholecalciferol [Vitamin D3 (25 Mcg = 1000 Iu)] 50 mcg PO DAILY 11/03/20 [History] Metoprolol Tartrate 25 mg DAILY 11/03/20 [History] risperiDONE [RisperDAL] 0.5 mg HS 11/03/20 [History] Acetaminophen Tab [Tylenol] 650 mg PO Q6HR PRN tab 11/04/20 [Rx] Atorvastatin [Lipitor] 20 mg PO HS #30 tab 11/04/20 [Rx] Psyllium Husk 100% [Metamucil Packet] 6 gm PO BID packet 11/04/20 [Rx] lisinopriL [Zestril] 5 mg PO HS #30 tab 11/04/20 [Rx] Follow up Appointment(s)/Referral(s): Rudi Hope DO [Primary Care Provider] - 1-2 days Patient Instructions/Handouts: Staple [facility] (DC) Activity/Diet/Wound Care/Special Instructions: activity as tolerated heart healthy diet cream to sung BID Discharge Disposition: HOME SELF-CARE
--- NOTE | 2020-11-12 13:01 | CDI ---
Documentation Clarification Form Date: 11/12/2020 06:04:26 PM From: Sarika Gordon Phone: Admit Date: 11/03/2020 12:56:00 PM Patient Name: Rosalba Dodson Visit Number: [id number] Discharge Date: 11/04/20 Payor: MEDICARE HMO ER admit to Observation. Dr. Alejandra Lancaster Please specify the length of the scalp laceration that was repaired with sung in the ER. You can provide response below the line or as addendum to ER Document. MTDD
== END 2020-11-04 13:02 | disposition home or self-care (01) ==
LOC: EC 09:05 → 6NMEDSUR 12:56
PROVIDERS: ADMIT Hospitalist; ATTEND Hospitalist
DX: R55 Syncope and collapse (principal); S01.01XA Laceration without foreign body of scalp, initial encounter; G89.29 Other chronic pain; M54.5 Low back pain; I69.311 Memory deficit following cerebral infarction; I25.2 Old myocardial infarction; F17.210 Nicotine dependence, cigarettes, uncomplicated; J44.9 Chronic obstructive pulmonary disease, unspecified; E87.1 Hypo-osmolality and hyponatremia; E44.1 Mild protein-calorie malnutrition; Z68.1 Body mass index [BMI] 19.9 or less, adult; R26.81 Unsteadiness on feet; I10 Essential (primary) hypertension; E03.9 Hypothyroidism, unspecified; E78.5 Hyperlipidemia, unspecified; R41.89 Other symptoms and signs involving cognitive functions and awareness; R19.7 Diarrhea, unspecified; M62.50 Muscle wasting and atrophy, not elsewhere classified, unspecified site; R32 Unspecified urinary incontinence; M19.90 Unspecified osteoarthritis, unspecified site; G31.9 Degenerative disease of nervous system, unspecified; I99.8 Other disorder of circulatory system; S22.009D Unspecified fracture of unspecified thoracic vertebra, subsequent encounter for fracture with routine healing; S22.21XD Fracture of manubrium, subsequent encounter for fracture with routine healing; Z20.822 Contact with and (suspected) exposure to COVID-19; W22.8XXA Striking against or struck by other objects, initial encounter; W19.XXXA Unspecified fall, initial encounter; Y92.003 Bedroom of unspecified non-institutional (private) residence as the place of occurrence of the external cause; Z98.890 Other specified postprocedural states; Z85.828 Personal history of other malignant neoplasm of skin; Z98.1 Arthrodesis status; Z91.81 History of falling; Z79.899 Other long term (current) drug therapy; Z79.890 Hormone replacement therapy; Z79.82 Long term (current) use of aspirin; Z88.1 Allergy status to other antibiotic agents; Z91.09 Other allergy status, other than to drugs and biological substances; Z95.818 Presence of other cardiac implants and grafts; Z80.8 Family history of malignant neoplasm of other organs or systems; Z84.1 Family history of disorders of kidney and ureter
CPT/HCPCS: 96361; 96375; 12002; 96374; 99285; 36415; 93005; 93306; 80053; 80048; 82550; 84484; 85025 ×2; 85610; 85730; 85810; 81003; 87635; 71046; 72125; 70450; 71260; G0378 ×2; J2405; J2270; Q9967

== ENCOUNTER 2022-01-21 18:46 | Inpatient (IN) | payer MEDICARE ==
[2022-01-21] MEDS ORDERED: DIPH,PERTUS(ACELL)TETVAC-LF 0.5 ML VIAL IM ONE (19:04)
[2022-01-21] MEDS ORDERED: HYDROmorphone 0.5 MG/0.5 ML SYRINGE IVP STA ×2 (19:08→21:09)
--- NOTE | 2022-01-21 19:22 | ED ---
General Adult HPI - General Chief complaint: Fall Stated complaint: Fall, Head Injury Time Seen by Provider: 01/21/22 18:50 Source: patient, EMS, RN notes reviewed, old records reviewed Mode of arrival: EMS Limitations: no limitations - History of Present Illness Initial comments: This is an 81-year-old female presents emergency department stating that she fell at home hit her head and hurt her right hip. Patient states her hip is extremely painful she is unable to move it. Patient also says she has a headache from where her head hit. Patient's not sure exactly how she fell but she must have lost her balance. Patient states she was at her house and she was not elevated. Patient denies being on any blood thinners. Patient denies any neck pain patient denies numbness weakness. Patient denies any chest pain anytime patient denies any palpitations. Patient denies shortness of breath or difficulty breathing. Patient denies abdominal pain patient denies any recent fever chills cough per patient denies any recent nausea vomiting diarrhea. - Related Data Home Medications Medication Instructions Recorded Confirmed Multivit with Calcium,Iron,Min 1 tab PO DAILY 10/22/17 01/21/22 [Women's Multivitamin] Levothyroxine Sodium [Synthroid] 88 mcg PO DAILY 11/12/19 01/21/22 Aspirin EC [Ecotrin Low Dose] 81 mg PO HS 11/03/20 01/21/22 Cholecalciferol [Vitamin D3 (25 50 mcg PO DAILY 11/03/20 01/21/22 Mcg = 1000 Iu)] Metoprolol Tartrate 25 mg PO DAILY 11/03/20 01/21/22 Previous Rx's Medication Instructions Recorded Atorvastatin [Lipitor] 20 mg PO HS #30 tab 11/04/20 Allergies Allergy/AdvReac Type Severity Reaction Status Date / Time azithromycin AdvReac Nausea & Verified 01/21/22 21:27 [From Zithromax Z-Gomez] Vomiting INDOOR ENVIRONMENTAL Allergy Itching Uncoded 01/21/22 18:59 ALLERGIES Review of Systems ROS Statement: Those systems with pertinent positive or pertinent negative responses have been documented in the HPI. ROS Other: All systems not noted in ROS Statement are negative. Past Medical History Past Medical History: CVA/TIA, Memory Impairment, Thyroid Disorder Additional Past Medical History / Comment(s): chronic back pain, had stroke during back surgery-affected memory; balance wobbly since hip surgery Last Myocardial Infarction Date:: 2014 History of Any Multi-Drug Resistant Organisms: None Reported Past Surgical History: Appendectomy, Back Surgery, Orthopedic Surgery, Tonsillectomy Additional Past Surgical History / Comment(s): shoulder skin ca, knee surgery to left, ORIF left hip 2015, loop recorder insertion Past Anesthesia/Blood Transfusion Reactions: Postoperative Nausea & Vomiting (PONV) Additional Past Anesthesia/Blood Transfusion Reaction / Comment(s): claustrophobia, trouble waking up Past Psychological History: No Psychological Hx Reported Smoking Status: Current every day smoker Past Alcohol Use History: Daily Past Drug Use History: None Reported - Past Family History Mother Family Medical History: Renal Disease Father Family Medical History: Cancer Additional Family Medical History / Comment(s): skin cancer, at age 93 from old age General Exam - General Exam Comments Initial Comments: GENERAL: Patient is well-developed and well-nourished. Patient is nontoxic and well- hydrated and is in mild distress. ENT: Neck is soft and supple. No significant lymphadenopathy is noted. Oropharynx is clear. Moist mucous membranes. Neck has full range of motion without eliciting any pain. EYES: The sclera were anicteric and conjunctiva were pink and moist. Extraocular movements were intact and pupils were equal round and reactive to light. Eyelids were unremarkable. PULMONARY: Unlabored respirations. Good breath sounds bilaterally. No audible rales rhonchi or wheezing was noted. CARDIOVASCULAR: There is a regular rate and rhythm without any murmurs gallops or rubs. ABDOMEN: Soft and nontender with normal bowel sounds. SKIN: Patient has a hematoma over the right orbit and there is a laceration measuring 3.5 cm NEUROLOGIC: Patient is alert and oriented x3. Cranial nerves II through XII are grossly intact. Motor and sensory are also intact. Normal speech, volume and content. Symmetrical smile. MUSCULOSKELETAL: Patient's hip is extremely painful to move in any direction it is shortened and external rotated. LYMPHATICS: No significant lymphadenopathy is noted PSYCHIATRIC: Normal psychiatric evaluation. Limitations: no limitations Course Vital Signs 01/21/22 01/21/22 01/21/22 18:52 19:52 20:13 Temperature 98.6 F 98.1 F Pulse Rate 56 L 52 L 56 L Respiratory 16 16 16 Rate Blood Pressure 180/91 144/71 122/69 O2 Sat by Pulse 96 96 95 Oximetry 01/21/22 21:19 Temperature 98 F Pulse Rate 52 L Respiratory 16 Rate Blood Pressure 126/67 O2 Sat by Pulse 97 Oximetry Procedures - Laceration Laceration #1 Consent Obtained: verbal consent Indication: laceration Site: other (Forehead) Size (cm): 3 (Complex laceration) Description: stellate, irregular Depth: simple, single layer Anesthetic Used: lidocaine 1% Pre-repair: wound explored Type of Sutures: nylon Size of Sutures: 3-0, 4-0 Number of Sutures: 7 Technique: simple, interrupted Complications: pain Patient Tolerated Procedure: well Medical Decision Making - Medical Decision Making I interpreted the CT of the brain and C-spine. CT of the brain and C-spine showed no intracranial hemorrhage and no fracture of the C-spine. X-ray of the pelvis shows no acute abnormality. X-ray of the right hip shows a femoral neck fracture with 50% displacement. I spoke with Dr. Mccauley he agreed to admit the patient admitted the patient I consult the medicine. EKG was interpreted by me. EKG shows sinus bradycardia at 49 bpm ME interval is 208 QRSs 117 QT interval 477 QTC is 448. Patient's EKG shows no ST segment lily vation or depression. - Lab Data Result diagrams: 01/21/22 19:36 01/21/22 19:36 Lab Results 01/21/22 01/21/22 Range/Units 19:36 19:36 WBC 8.0 (3.8-10.6) k/uL RBC 3.65 L (3.80-5.40) m/uL Hgb 11.9 (11.4-16.0) gm/dL Hct 34.3 (34.0-46.0) % MCV 94.0 (80.0-100.0) fL MCH 32.6 (25.0-35.0) pg MCHC 34.7 (31.0-37.0) g/dL RDW 13.3 (11.5-15.5) % Plt Count 161 (150-450) k/uL MPV 8.2 Neutrophils % 67 % Lymphocytes % 25 % Monocytes % 5 % Eosinophils % 1 % Basophils % 1 % Neutrophils # 5.4 (1.3-7.7) k/uL Lymphocytes # 2.0 (1.0-4.8) k/uL Monocytes # 0.4 (0-1.0) k/uL Eosinophils # 0.1 (0-0.7) k/uL Basophils # 0.0 (0-0.2) k/uL Sodium 130 L (137-145) mmol/L Potassium 3.2 L (3.5-5.1) mmol/L Chloride 105 (98-107) mmol/L Carbon Dioxide 19 L (22-30) mmol/L Anion Gap 6 mmol/L BUN 16 (7-17) mg/dL Creatinine 0.52 (0.52-1.04) mg/dL Est GFR (CKD-EPI)AfAm >90 (>60 ml/min/1.73 sqM) Est GFR (CKD-EPI)NonAf >90 (>60 ml/min/1.73 sqM) Glucose 82 (74-99) mg/dL Calcium 7.4 L (8.4-10.2) mg/dL Total Bilirubin 0.6 (0.2-1.3) mg/dL AST 27 (14-36) U/L ALT 18 (4-34) U/L Alkaline Phosphatase 45 (38-126) U/L Total Protein 5.2 L (6.3-8.2) g/dL Albumin 3.1 L (3.5-5.0) g/dL Disposition Clinical Impression: Traumatic hematoma of forehead, Laceration of forehead, Femoral neck fracture Disposition: ADMITTED IP TO THIS [facility] Time of Disposition: 20:41
--- NOTE | 2022-01-21 19:50 | CT ---
EXAMINATION TYPE: CT brain antonioine wo con DATE OF EXAM: 01/21/2022 COMPARISON: 11/03/2020 HISTORY: Trauma/fall. Laceration and bleeding to right side of the face and eye CT DLP: 1272.6 mGycm Automated exposure control for dose reduction was used. Images obtained of the brain and cervical spine with no contrast. There is diffuse cerebral cortical atrophy. There is no mass effect or midline shift. No sign of intr acranial hemorrhage. There is moderate patchy hypodensity in the periventricular white matter. There is significant right side lateral periorbital scalp soft tissue swelling and hematoma. Calvariu m is intact. There is no evidence of posterior fossa mass. The cervical vertebra show some mild degenerative subluxation at C3-4 and C4-5. There is degenerative disc space narrowing C3-T1. There is mild spurring of the endplates. There is mild multilevel cervic al hypertrophic facet arthropathy. No compression fracture. IMPRESSION: Multilevel cervical spondylotic changes with mild degenerative subluxation at C3-4 and C4-5. No signi ficant change compared to old exam. No fracture. Cerebral atrophy and chronic small vessel ischemia without much change. There is a large right sided periorbital scalp hematoma. No acute intracranial abnormality.
[2022-01-21 19:55] LABS: Basophils % (A) 1 %; Eosinophils # (A) 0.1 k/uL (0-0.7); Eosinophils % (A) 1 %; HCT 34.3 % (34.0-46.0); HGB 11.9 gm/dL (11.4-16.0); Lymphocytes % (A) 25 %; MCH 32.6 pg (25.0-35.0); MCHC 34.7 g/dL (31.0-37.0); Mean Platelet Volume 8.2; Monocytes # (A) 0.4 k/uL (0-1.0); Monocytes % (A) 5 %; Neutrophils # (A) 5.4 k/uL (1.3-7.7); Neutrophils % (A) 67 %; Platelet Count 161 k/uL (150-450); RBC 3.65 m/uL (3.80-5.40); RDW 13.3 % (11.5-15.5)
[2022-01-21 20:08] LABS: ALT 18 U/L (4-34); AST 27 U/L (14-36); African American GFR (CKD) >90 (>60 ml/min/1.73 sqM); Albumin 3.1 g/dL (3.5-5.0); Alkaline Phosphatase 45 U/L (38-126); Anion Gap 6 mmol/L; Blood Urea Nitrogen 16 mg/dL (7-17); Calcium 7.4 mg/dL (8.4-10.2); Carbon Dioxide 19 mmol/L (22-30); Chloride 105 mmol/L (98-107); Glucose 82 mg/dL (74-99); Non-African American GFR(CKD) >90 (>60 ml/min/1.73 sqM); Potassium 3.2 mmol/L (3.5-5.1); Sodium 130 mmol/L (137-145); Total Bilirubin 0.6 mg/dL (0.2-1.3); Total Protein 5.2 g/dL (6.3-8.2)
--- NOTE | 2022-01-21 20:38 | XR ---
EXAMINATION TYPE: XR Hip RT and AP Pelvis DATE OF EXAM: 01/21/2022 COMPARISON: 02/18/2020 HISTORY: Pain. Fall. TECHNIQUE: 3 view FINDINGS: There is an acute fracture of the right femoral neck with impaction. No dislocation. The pe lvic ring is intact. There is left hip prosthesis. There is 3 cm of impaction and displacement of the hip fracture. Sacroiliac joints are intact. IMPRESSION: Acute right femoral neck fracture.
--- NOTE | 2022-01-21 20:39 | XR ---
EXAMINATION TYPE: XR chest 1V DATE OF EXAM: 01/21/2022 COMPARISON: 11/03/2020 HISTORY: Pain. TECHNIQUE: Single view FINDINGS: There is no heart failure nor confluent pneumonic infiltrate. Thoracic aorta is atheromatou s. There are no hilar masses. No pleural effusion. There are rods and screws stabilizing the thoracol umbar junction. IMPRESSION: No active cardiopulmonary disease. No change.
[2022-01-21] MEDS ORDERED: SODIUM CHLORIDE 0.9% 1,000 ML IV ONE (20:41)
--- NOTE | 2022-01-21 20:49 | P.PN ---
Progress Note - Text Progress Note Date: 01/21/22 Spoke to ED. Right femoral neck fracture. Will admit. Medicine to consult for clearance for OR 01/22/22 right hip emi. NPO Ancef branch operations manager to OR TXA branch operations manager to OR TEds/SCDs non op leg [place] Duarte
[2022-01-21] MEDS: HYDROmorphone 0.5 MG/0.5 ML SYRINGE IVP PRN (22:33)
[2022-01-22] MEDS: ONDANSETRON 4 MG/2 ML VIAL IVP PRN (02:52)
[2022-01-22] MEDS: HYDROmorphone 0.5 MG/0.5 ML SYRINGE IVP PRN ×4 (03:00→18:06)
[2022-01-22] MEDS ORDERED: TRANEXAMIC ACID 1,000 MG in SODIUM CHLORIDE 0.9% 100 ML IVPB ONE ×4 (07:00)
--- NOTE | 2022-01-22 07:45 | P.HPOR ---
History of Present Illness H&P Date: 01/22/22 Chief Complaint: Right hip pain, FFs 81 yo female presented after FFS at home with right hip pain inability to ambulate as well as right sided frontal laceration above her eye with BHT from the fall but no definite LOC. She states pain in her hip and head. She denies any other areas of pain. She states no SOB/CP/F/C recently. No DALTON, Change in vision, blurred vision. She lives with her at home. She uses a walker occationally for ambulation. Review of Systems 14 points review of systems completed and as stated in HPI, all other systems reviewed are negative. Past Medical History Past Medical History: CVA/TIA, Memory Impairment, Thyroid Disorder Additional Past Medical History / Comment(s): chronic back pain, had stroke during back surgery-affected memory; balance wobbly since hip surgery Last Myocardial Infarction Date:: 2014 History of Any Multi-Drug Resistant Organisms: None Reported Past Surgical History: Appendectomy, Back Surgery, Orthopedic Surgery, Tonsillectomy Additional Past Surgical History / Comment(s): shoulder skin ca, knee surgery to left, ORIF left hip 2015, loop recorder insertion Past Anesthesia/Blood Transfusion Reactions: Postoperative Nausea & Vomiting (PONV) Additional Past Anesthesia/Blood Transfusion Reaction / Comment(s): claustrophobia, trouble waking up Past Psychological History: No Psychological Hx Reported Smoking Status: Current every day smoker Past Alcohol Use History: Daily Past Drug Use History: None Reported - Past Family History Mother Family Medical History: Renal Disease Father Family Medical History: Cancer Additional Family Medical History / Comment(s): skin cancer, at age 93 from old age Medications and Allergies Home Medications Medication Instructions Recorded Confirmed Type Multivit with Calcium,Iron,Min 1 tab PO DAILY 10/22/17 01/21/22 History [Women's Multivitamin] Levothyroxine Sodium [Synthroid] 88 mcg PO DAILY 11/12/19 01/21/22 History Aspirin EC [Ecotrin Low Dose] 81 mg PO HS 11/03/20 01/21/22 History Cholecalciferol [Vitamin D3 (25 50 mcg PO DAILY 11/03/20 01/21/22 History Mcg = 1000 Iu)] Metoprolol Tartrate 25 mg PO DAILY 11/03/20 01/21/22 History Atorvastatin [Lipitor] 20 mg PO HS #30 tab 11/04/20 01/21/22 Rx Allergies Allergy/AdvReac Type Severity Reaction Status Date / Time azithromycin AdvReac Nausea & Verified 01/21/22 21:27 [From Zithromax Z-Gomez] Vomiting INDOOR ENVIRONMENTAL Allergy Itching Uncoded 01/21/22 18:59 ALLERGIES Physical Examination Osteopathic Statement: *. No significant issues noted on an osteopathic structural exam other than those noted in the History and Physical/Consult. Physical Exam: -Patient is alert and oriented 3 appears well-nourished well-hydrated is in no acute distress. They do not appear septic. -There is TTP about the right hip and the right frontal region of her bruising about her right hip as well as her head and face she has a periorbital ecchymosis. -Upper extremities show [5] out of 5 strength in all major muscle groups. [##EXCEPT] -Lower extremities with [5] out of 5 strength in all major muscle groups except right lower extremity due to fracture -There is [FROM] that is [painless] of the b/l UE and LE in all major joints. p ositive logroll on the right. Abnormal motion secondary to pain and fracture -They are intact to light touch sensation in C5 to T1 and L2 to S1 nerve distribution. -DTR [2]/4 all upper and lower extremities -Patient has palpable distal pulses all 4 ext -Compartments are soft and compressible. -Patient shows a negative Ken's [-Neg Hoffmans b/l] [-Neg Clonus b/l] [-Neg babinski b/l] Cranial nerves II through XII are grossly intact. periorbital edema along with a laceration that is approximately 3 cm transverse just above the eyebrow on the right is been sutured by the emergency department. No scalp hematoma noted. No Basler signs. Results x-rays of the right hip and pelvis to assure her right femoral neck fracture which is completely displaced. AP pelvis is intact no pelvic fractures noted. Postsurgical changes noted in the lumbar spine as well as the left hip where she has a hemiarthroplasty that has been placed as well. No other Cane processes seen femur films pending - Labs Labs: Abnormal Lab Results - Last 24 Hours (Table) 01/21/22 01/21/22 Range/Units 19:36 19:36 RBC 3.65 L (3.80-5.40) m/uL Sodium 130 L (137-145) mmol/L Potassium 3.2 L (3.5-5.1) mmol/L Carbon Dioxide 19 L (22-30) mmol/L Calcium 7.4 L (8.4-10.2) mg/dL Total Protein 5.2 L (6.3-8.2) g/dL Albumin 3.1 L (3.5-5.0) g/dL H & H 01/21/22 Range/Units 19:36 Hgb 11.9 (11.4-16.0) gm/dL Hct 34.3 (34.0-46.0) % Result Diagrams: 01/21/22 19:36 01/21/22 19:36 Assessment and Plan Assessment: 81-year-old female status post fall from standing right femoral neck fracture completely displaced closed right scalp laceration/facial laceration, sutured by ED Plan: Orthopedic Surgery Risk Review Rosalba is a 81-year-old female presenting for evaluation of sudden onset right hip pain, inability to ambulate afterfall from standing. It was my pleasure to have seen and examined Rosalba. In our visit today we have had a chance to go over subjective complaints, physical examination findings and treatments including the natural course history without intervention and various interventional options.her imaging demonstrates right femoral neck fracture completely displaced. On physical exam, Rosalba demonstrates pain with motion of right lower extremity, which is NV intact at this time. I have explained to the patient that this fracture needs stabilization. Based on the patients imaging, physical exam, and the rapid progression and disabling nature of her symptoms, at this time I recommend surgery in the form or a: right hip hemiarthroplasty I discussed the risk and benefits of this procedure at length withRosalba and her . Questions were invited and answered, and the patient wishes to proceed as outlined below. Currently, I am recommendin. right hip hemiarthroplasty 2. Review of surgical risks and benefits as well as an educational packet on the proposed surgical procedure. Risks: All surgical procedures come with inherent risks, including those related to positioning, anesthesia, intraoperative findings, and postoperative complications. It is important to understand that surgery does not come with any guarantee of a successful outcome as complications and adverse events are always possible. The patient was given a handout discussing the surgical procedure and risks associated with the intervention, both of which were discussed with the patient. These risks include but are not limited to the following: - Experiencing same, different or even worse symptoms compared to before surgery. - Requiring further surgery or other forms of treatment presently or at some time in the future . - On an extreme but fortunately relatively rare basis severe complication such as blindness, stroke, heart attack, temporary and/or permanent nerve injury, paralysis, coma, or may occur, sometimes without known explanation. - Surgical complications may include but are not limited to risk of infection, fluid accumulation in the surgical dissection site, including a seroma or hematoma, that requires additional surgery, wound drainage, bleeding, new numbness or weakness, vision changes/loss, spinal fluid leakage, non-healing and/or infected incision, headaches, difficulty or inability to swallow, hoarseness, hemopneumothorax, pneumothorax, injury to nerves, spinal cord, blood vessels, lymphatics or other vital organs (i.e., bowel injury, injury to the great vessels); heterotopic bone formation; complications related to the hardware such as screws, rods, including misplaced hardware, device failure, hardware fracture/breakage, or hardware loosening; retained surgical instrumentations or devices and the need for further surgery. - Medical risks of the planned surgery include but are not limited to generalized Infections to the whole body or local areas outside of the surgical site (sepsis), heart attack, bleeding, anaphylaxis, meningitis, seizure, epilepsy, hearing loss, burn her, laceration of the head or other areas of the body, bruising, hypersensitivity of the skin, bladder over distension; allergic reaction; shoulder injury related to positioning; fat, blood and air clots to ot her areas of the body like heart, lungs, brain; failure of internal organs such as lungs, kidneys, liver and excessive bleeding. If blood transfusions are necessary, note that transfusions may cause intolerance reactions such as anaphylaxis or other complex reactions. Despite best efforts, the results of surgery might not heal in terms of bone, soft tissues such as skin, fascia, ligaments, and joints. [facility] has multiple operating rooms with single and overlapping rooms running daily. They currently function under the required guidelines as produced by the Senate [employer] Committee with regards to the overlapping rooms and will continue to comply with changes to this policy as they occur. The requirements include and are complied with as follows: (1) the critical portions of the overlapping rooms will not occur at the same time, (2) the attending physician will be physically present during the critical portions of the procedure and immediately available during the entire case, and (3) a back-up attending is designated should the primary attending not be immediately available. The patient has had a chance to review all the listed information, has been given print outs detailing this information, and has had all his/her questions answered to their satisfaction. It was my pleasure to have seen and examined Rosalba. In our visit today we have had a chance to go over my understanding of our patient's current condition, the natural course history without intervention and various interventional options. Questions were invited and answered, and the patient wishes to proceed as outlined above. I have seen and examined the patient for 25 minutes and we have spent more than 50% of the time in repeat and detailed counseling about the patient's condition, its natural course history with out and as much as can be predicted with surgery and re-review of various surgical treatment options. In conclusion, Rosalba and her requested we proceed with the above suggested surgery and are willing to accept risks and limitations of the suggested surgery as nature of the disease process and our best attempts at treatment for the condition. Thank you again for allowing us to be part of your patient's care. Please don't hesitate to contact me if you have any further questions. Signed and authenticated by: Adolfo Segal [facility] [address] [place], [address] [address]
--- NOTE | 2022-01-22 09:15 | XR ---
EXAMINATION TYPE: XR femur RT DATE OF EXAM: 01/22/2022 CLINICAL HISTORY: pain TECHNIQUE: Two views of the right femur are obtained. COMPARISON: None. FINDINGS: Again noted is partially impacted right femoral neck fracture with displacement of approximately 6 mm . No additional fractures seen within the [id number]. The hip and knee joints appear mildly narrow ed. The overlying soft tissue appears unremarkable. IMPRESSION: Again noted is right femoral neck fracture.
[2022-01-22] MEDS ORDERED: Potassium Replacement Protocol 1 EACH MISC MISCELLANE PRN (11:19)
[2022-01-22] MEDS: CHOLECALCIFEROL 25 MCG (1000 IU) TABLET PO SCH (11:24)
[2022-01-22] MEDS: LEVOTHYROXINE 88 MCG TAB PO SCH (11:24)
[2022-01-22] MEDS: POTASSIUM CHLORIDE ER 20 MEQ TAB.ER PO SCH (11:26)
--- NOTE | 2022-01-22 14:35 | P.CONS ---
History of Present Illness - Reason for Consult Consult date: 01/22/22 Medical management Requesting physician: Adolfo Mccauley - Chief Complaint Fall - History of Present Illness This is a pleasant 81-year-old patient who follows with Dr. Hope. Chronic stable medical conditions include dementia, hypothyroid, chronic low back pain, smoker. Because underlying dementia patient somewhat limited historian but able to answer questions. It is unclear leading to his circumstances but patient had a fall. Hitting the right forehead in the right hip. Had been complaining of pain in the right hip. Fond of acute right femoral neck fracture. Has a left hip prosthesis. Single full hematoma on the right forehead. Denies any chest pain or palpitations. Patient unsure as to why she fell down. It may be noted that patient's heart rate was in the 40s. Lopressor has been discontinued. Review of systems: GEN.: Tired EYES: None HEENT: Decreased hearing, right forehead hematoma NECK: None RESPIRATORY: None CARDIOVASCULAR: None GASTROINTESTINAL: None GENITOURINARY: Incontinence MUSCULOSKELETAL: Joint pains LYMPHATICS: None HEMATOLOGICAL: None PSYCHIATRY: Forgetful] NEUROLOGICAL: None Past medical history to include: CVA/TIA, memory impairment, hypothyroid, chronic low back pain, unsteady gait Social history: Smokes less than a pack a day drinks one [place] a day. Smoking since the age of 19. Lives with her . Physical examination: VITAL SIGNS: 97.9, 69, 18, 150/75, 93% room air GENERAL: BMI 20, thin built laying in bed awake tired. EYES: Pupils equal. Conjunctiva normal. HEENT: External appearance of nose and ears normal, oral cavity grossly normal right forehead hematoma with some bruising. NECK: JVD not raised; masses not palpable. HEART: First and second heart sounds are normal; no edema. LUNGS: Respiratory rate normal; diminished breath sounds. ABDOMEN: Soft, nontender, liver spleen not palpable, no masses palpable. PSYCH: Patient didn't tell her name, knows she has not hospital [place] cannot tell the name. Thinks is 1941. Not sure about the season.l. MUSCULOSKELETAL:No Clubbing/cyanosis;muscles-grossly intact. Evidence of OA multiple joints. Limited range of motion right hip NEUROLOGICAL: Cranial nerves grossly intact; no facial asymmetry, power and sensation grossly intact. LYMPHATICS: No lymph nodes palpable in the axilla and neck INVESTIGATIONS, reviewed in the clinical context: White count 8 hemoglobin 11.9 platelets 161 potassium 3.2 creatinine 0.5 to albumin 3.1 Hip pelvis x-ray: Right femur fracture. CT brain C-spine without contrast: Multiple cervical spondylitic changes. No fracture. Cerebral atrophy. Large right-sided periorbital scalp hematoma. EKG tracing personally reviewed by me-sinus bradycardia rate of 49. Chest x-ray film personally reviewed by me-cardiomegaly. Prominent pulmonary artery. Hyperinflation Assessment plan: -Right femoral neck fracture secondary to mechanical fall Pending surgical intervention by Dr. Mccauley -Severe cognitive impairment. Late onset Alzheimer's dementia -Bradycardia. Stop metoprolol Telemetry -Hypothyroid Synthroid 88 g -Hyperlipidemia Lipitor 20 mg daily at bedtime -Chronic nicotine dependence, single smoker Nicotine patch -Hypokalemia Replace potassium -Hyponatremia Encourage oral intake -Mild protein calorie malnutrition Ensure -Chronic gait dysfunction Fall precautions -Primary osteoarthritis multiple joints including chronic low back pain Tylenol as needed Resume home medications. Hold Lopressor. Nicotine patch. Telemetry. Perioperative cardiovascular risk assessment: Patient has limited exercise tolerance. Comorbidities. No active chest pain or shortness of breath. Patient is a moderate risk for surgery. No active contraindications. Stable otherwise to proceed for surgery Thank you Dr. Mccauley, will follow Past Medical History Past Medical History: CVA/TIA, Memory Impairment, Thyroid Disorder Additional Past Medical History / Comment(s): chronic back pain, had stroke during back surgery-affected memory; balance wobbly since hip surgery Last Myocardial Infarction Date:: 2014 History of Any Multi-Drug Resistant Organisms: None Reported Past Surgical History: Appendectomy, Back Surgery, Orthopedic Surgery, T onsillectomy Additional Past Surgical History / Comment(s): shoulder skin ca, knee surgery to left, ORIF left hip 2015, loop recorder insertion Past Anesthesia/Blood Transfusion Reactions: Postoperative Nausea & Vomiting (PONV) Additional Past Anesthesia/Blood Transfusion Reaction / Comm: claustrophobia, trouble waking up Past Psychological History: No Psychological Hx Reported Smoking Status: Current every day smoker Past Alcohol Use History: Daily Past Drug Use History: None Reported - Past Family History Mother Family Medical History: Renal Disease Father Family Medical History: Cancer Additional Family Medical History / Comment(s): skin cancer, at age 93 from old age Medications and Allergies Home Medications Medication Instructions Recorded Confirmed Type Multivit with Calcium,Iron,Min 1 tab PO DAILY 10/22/17 01/21/22 History [Women's Multivitamin] Levothyroxine Sodium [Synthroid] 88 mcg PO DAILY 11/12/19 01/21/22 History Aspirin EC [Ecotrin Low Dose] 81 mg PO HS 11/03/20 01/21/22 History Cholecalciferol [Vitamin D3 (25 50 mcg PO DAILY 11/03/20 01/21/22 History Mcg = 1000 Iu)] Metoprolol Tartrate 25 mg PO DAILY 11/03/20 01/21/22 History Atorvastatin [Lipitor] 20 mg PO HS #30 tab 11/04/20 01/21/22 Rx Allergies Allergy/AdvReac Type Severity Reaction Status Date / Time azithromycin AdvReac Nausea & Verified 01/21/22 21:27 [From Zithromax Z-Gomez] Vomiting INDOOR ENVIRONMENTAL Allergy Itching Uncoded 01/21/22 18:59 ALLERGIES Physical Exam Vitals: Vital Signs Temp Pulse Pulse Resp BP BP Pulse Ox 01/22/22 05:01 97.9 F 69 18 150/75 93 L 01/22/22 00:00 18 01/21/22 21:19 98 F 52 L 16 126/67 97 01/21/22 20:13 56 L 16 122/69 95 01/21/22 19:52 98.1 F 52 L 16 144/71 96 01/21/22 18:52 98.6 F 56 L 16 180/91 96 Intake and Output 01/21/22 01/22/22 01/22/22 22:59 06:59 14:59 Intake Total 0 Output Total 600 Balance -600 Intake: Oral 0 Output: Urine 600 Other: Voiding Method Indwelling Catheter # Bowel Movements 0 Weight 54.431 kg Results CBC & Chem 7: 01/21/22 19:36 01/21/22 19:36 Labs: Abnormal Lab Results - Last 24 Hours (Table) 01/21/22 01/21/22 Range/Units 19:36 19:36 RBC 3.65 L (3.80-5.40) m/uL Sodium 130 L (137-145) mmol/L Potassium 3.2 L (3.5-5.1) mmol/L Carbon Dioxide 19 L (22-30) mmol/L Calcium 7.4 L (8.4-10.2) mg/dL Total Protein 5.2 L (6.3-8.2) g/dL Albumin 3.1 L (3.5-5.0) g/dL
[2022-01-22] MEDS: IPRATROPIUM-ALBUTEROL 3 ML NEB INHALATION SCH (20:29)
[2022-01-22] MEDS ORDERED: MIDAZOLAM 2 MG/2 ML VIAL ONE (20:56)
[2022-01-22] MEDS ORDERED: TRANEXAMIC ACID IN NACL,ISO-OS 1,000 MG/100 ML BAG ONE (20:56)
[2022-01-22] MEDS ORDERED: KETAMINE 10 MG/ML 20 ML VIAL ONE (20:56)
[2022-01-22] MEDS ORDERED: fentaNYL (PF) 50 MCG/ML 2 ML AMP ONE (20:56)
[2022-01-22] MEDS ORDERED: ePHEDrine 50 MG/ML 1 ML VIAL ONE (20:56)
[2022-01-22] MEDS ORDERED: SODIUM CHLORIDE 0.9% 1,000 ML IV ONE ×2 (21:00→22:34)
[2022-01-22] MEDS ORDERED: SODIUM CHLORIDE 0.9% 50 ML with ceFAZolin 2,000 MG IV ONE ×2 (21:00)
[2022-01-22] MEDS ORDERED: LACTATED RINGERS 1,000 ML IV ONE (21:09)
[2022-01-22] MEDS ORDERED: ceFAZolin 1,000 MG in SODIUM CHLORIDE 0.9% 1,000 ML IRRIGATION ONE (21:31)
[2022-01-22] MEDS ORDERED: ROPIVACAINE 5 MG/ML 30 ML VIAL MISCELLANE ONE (22:11)
[2022-01-22] MEDS ORDERED: NALOXONE 0.4 MG/ML 1 ML VIAL IV PRN (22:34)
--- NOTE | 2022-01-22 23:34 | XR ---
EXAMINATION TYPE: XR Hip Limited RT DATE OF EXAM: 01/22/2022 COMPARISON: NONE HISTORY: Pain TECHNIQUE: Single view FINDINGS: There is a right hip prosthesis. Components in good position. There are lateral skin staple s. IMPRESSION: No complicating process seen.
[2022-01-23 00:35] LABS: Basophils % (A) 0 %; Eosinophils % (A) 0 %; HCT 32.3 % (34.0-46.0); Lymphocytes # (A) 0.9 k/uL (1.0-4.8); Lymphocytes % (A) 10 %; MCH 33.3 pg (25.0-35.0); MCHC 34.2 g/dL (31.0-37.0); MCV 97.5 fL (80.0-100.0); Monocytes # (A) 0.3 k/uL (0-1.0); Monocytes % (A) 3 %; Neutrophils % (A) 85 %; Platelet Count 138 k/uL (150-450); RBC 3.32 m/uL (3.80-5.40); WBC 9.3 k/uL (3.8-10.6)
[2022-01-23] MEDS: ATORVASTATIN 20 MG TAB PO SCH ×2 (01:02→21:34)
[2022-01-23] MEDS: HYDROmorphone 0.5 MG/0.5 ML SYRINGE IVP PRN ×2 (02:15→06:00)
[2022-01-23] MEDS: LEVOTHYROXINE 88 MCG TAB PO SCH (05:48)
[2022-01-23] MEDS: IPRATROPIUM-ALBUTEROL 3 ML NEB INHALATION SCH ×3 (08:47→19:39)
--- NOTE | 2022-01-23 09:13 | P.PN ---
Subjective Progress Note Date: 01/23/22 Principal diagnosis: FFS with Trauma Right Hip pain Patient seen and examined at bedside. Patient is slightly confused. A-frame pillow remains in place to maintain hip precautions. Surgical dressing is clean dry and intact. Patient is able to perform flexion-extension exercises of bilateral ankles without difficulty. Beckham catheter is present and patent. Patient to work with physical therapy today. Patient has remained afebrile, no complaints of nausea/vomiting, or chest pain. Objective - Vital Signs Vital signs: Vital Signs Temp 98.0 F 01/23/22 04:59 Pulse 88 01/23/22 04:59 Resp 16 01/23/22 04:59 BP 97/72 01/23/22 04:59 Pulse Ox 93 L 01/23/22 04:59 FiO2 Intake & Output 01/22/22 01/23/22 01/23/22 18:59 06:59 18:59 Intake Total 451 Output Total 325 550 Balance -325 -99 Intake: IV 451 Output: Urine 325 500 Estimated Blood Loss 50 Other: Voiding Method Indwelling Catheter Indwelling Catheter - Exam Physical Examination General: The patient is awake and alert, in no acute distress Skin: Skin is warm and dry with no obvious rashes. Right scalp laceration/facial laceration, sutured. Surgical incision to right hip, CDI Eye: Pupils are equal, round and reactive to light, extra-ocular movements are intact; there is normal conjunctiva bilaterally. Neck: The neck is supple, there is no tenderness and ROM intact. Cardiovascular: There is a regular rate and rhythm. No murmur, rub or gallop is appreciated. Respiratory: Lungs are clear to auscultation, respirations are non-labored, breath sounds are equal. Gastrointestinal: Soft, non-distended, non-tender abdomen. Musculoskeletal: ROM limited secondary to pain and stiffness from surgical procedure. Muscle strength in all major muscle groups of bilateral upper e xtremities 5/5, bilateral lower extremities 4/5. Neurological: CN 2-12 intact. There are no obvious motor or sensory deficits. Movement and coordination equal and intact. Sensory exam to light touch intact C5-T1 and intact from L2-S1. Reflexes 2/4 in bilateral upper and lower extremities. Negative Hoffmans, babinski, and clonus signs. Psychiatric: Cooperative, appropriate mood & affect, normal judgment. - Labs CBC & Chem 7: 01/22/22 23:24 01/21/22 19:36 Labs: Abnormal Lab Results - Last 24 Hours (Table) 01/22/22 Range/Units 23:24 RBC 3.32 L (3.80-5.40) m/uL Hgb 11.0 L (11.4-16.0) gm/dL Hct 32.3 L (34.0-46.0) % Plt Count 138 L (150-450) k/uL Neutrophils # 8.0 H (1.3-7.7) k/uL Lymphocytes # 0.9 L (1.0-4.8) k/uL Assessment and Plan Assessment: Post-Op Day 1: Right Hip Hemiarthroplasty 81-year-old female status post fall from standing Right femoral neck fracture completely displaced closed Right scalp laceration/facial laceration, sutured by ED Plan: -Appreciate business management consultant and team management. -Activity: Ambulate QID, OOB all meals, up and about, limit lifting bending twisting to less than 5 lbs. Use walker or cane if needed for stability. -Daily PT/OT, increase ambulation strength and balance. -Maintain hip precautions -Pain control: Adequate at this time -Meds: reviewed -GI ppx: senna, Miralax -DC beckham when up and about, bedside commode if needed -DVT PPX: Lovenox -Hygiene: Shower today. Maintain dressing clean and dry. -Encourage IS 10x/hr -Dispo: Anticipate discharge [facility] within 48hrs *I reviewed and discussed this case with my attending Dr. Mccauley, whom has reviewed this chart and films and is in agreement with assessment and plan of care as outlined above. I have personally seen and examined the patient, performed the documentation and the assessment and plan as written. Number of minutes spent on the visit: 15m.
[2022-01-23] MEDS: NICOTINE 21MG/24HR PATCH TRANSDERM SCH (09:35)
[2022-01-23] MEDS: MULTIVITAMINS, THERA 1 EACH TAB PO SCH (09:35)
[2022-01-23] MEDS: CHOLECALCIFEROL 25 MCG (1000 IU) TABLET PO SCH (09:35)
[2022-01-23] MEDS: HYDROcodone/APAP 5-325MG 1 EACH TAB PO PRN ×2 (09:35→14:27)
[2022-01-23] MEDS: ENOXAPARIN 40 MG/0.4 ML SYRINGE SQ SCH (09:36)
[2022-01-23] MEDS: HYDROcodone/APAP 7.5-325MG 1 EACH TAB PO PRN (21:34)
[2022-01-23] MEDS: SENNOSIDES-DOCUSATE SODIUM 1 EACH TAB PO SCH (21:34)
[2022-01-23] MEDS: ONDANSETRON 4 MG/2 ML VIAL IVP PRN (22:43)
--- NOTE | 2022-01-23 22:59 | P.PN ---
Progress Note - Text Progress Note Date: 01/23/22 - Chief Complaint Fall Hospital course This is a pleasant 81-year-old patient who follows with Dr. Hope. Chronic stable medical conditions include dementia, hypothyroid, chronic low back pain, smoker. Because underlying dementia patient somewhat limited historian but able to answer questions. It is unclear leading to his circumstances but patient had a fall. Hitting the right forehead in the right hip. Had been complaining of pain in the right hip. Fond of acute right femoral neck fracture. Has a left hip prosthesis. Single full hematoma on the right forehead. Denies any chest pain or palpitations. Patient unsure as to why she fell down. It may be noted that patient's heart rate was in the 40s. Lopressor has been discontinued. 01/23/2022: As stated underwent right hip hemiarthroplasty. Pain control. Eating fair. Discussed this out of the bedside. Pain he to go to rehab. Active Medications Hydrocodone Bitart/Acetaminophen (Hydrocodone/Apap 5-325mg 1 Each Tab) 1 each PO Q4HR PRN PRN Reason: Pain Scale 1 to 5 Last Admin: 01/23/22 14:27 Dose: 1 each Hydrocodone Bitart/Acetaminophen (Hydrocodone/Apap 7.5-325mg 1 Each Tab) 1 each PO Q6H PRN PRN Reason: Pain Scale 6 to 10 Last Admin: 01/23/22 21:34 Dose: 1 each Albuterol/Ipratropium (Ipratropium-Albuterol 3 Ml Neb) 3 ml INHALATION RT-TID [facility] Last Admin: 01/23/22 19:39 Dose: 3 ml Atorvastatin Calcium (Atorvastatin 20 Mg Tab) 20 mg PO HS [facility] Last Admin: 01/23/22 21:34 Dose: 20 mg Cholecalciferol (Cholecalciferol 25 Mcg (1000 Iu) Tablet) 50 mcg PO DAILY [facility] Last Admin: 01/23/22 09:35 Dose: 50 mcg Enoxaparin Sodium (Enoxaparin 40 Mg/0.4 Ml Syringe) 40 mg SQ DAILY [facility] Last Admin: 01/23/22 09:36 Dose: 40 mg Hydromorphone HCl (Hydromorphone 0.5 Mg/0.5 Ml Syringe) 0.5 mg IVP Q4HR PRN PRN Reason: Pain Last Admin: 01/23/22 06:00 Dose: 0.5 mg Cefazolin Sodium 2 gm/ Sodium (Chloride) 50 mls @ 100 mls/hr IVPB Q8HR [facility]; Protocol Last Admin: 01/23/22 17:11 Dose: 100 mls/hr Levothyroxine Sodium (Levothyroxine 88 Mcg Tab) 88 mcg PO DAILY@0630 [facility] Last Admin: 01/23/22 05:48 Dose: 88 mcg Miscellaneous Information (Potassium Replacement Protocol 1 Each Misc) 1 each MISCELLANE DAILY PRN; Protocol PRN Reason: Per Protocol Multivitamins (Multivitamins, Thera 1 Each Tab) 1 each PO DAILY [facility] Last Admin: 01/23/22 09:35 Dose: 1 each Naloxone HCl (Naloxone 0.4 Mg/Ml 1 Ml Vial) 0.2 mg IV Q2M PRN PRN Reason: Opioid Reversal Nicotine (Nicotine 21mg/24hr Patch) 1 patch TRANSDERM DAILY [facility] Last Admin: 01/23/22 09:35 Dose: 1 patch Ondansetron HCl (Ondansetron 4 Mg/2 Ml Vial) 4 mg IVP Q6HR PRN PRN Reason: Nausea And Vomiting Last Admin: 01/23/22 22:43 Dose: 4 mg Senna/Docusate Sodium (Sennosides-Docusate Sodium 1 Each Tab) 2 each PO HS [facility] Last Admin: 01/23/22 21:34 Dose: 2 each Past medical history to include: CVA/TIA, memory impairment, hypothyroid, chronic low back pain, unsteady gait Social history: Smokes less than a pack a day drinks one [place] a day. Smoking since the age of 19. Lives with her . Physical examination: VITAL SIGNS: 98, 93, 16, 110/73, 94% room air GENERAL: Reclining in bed, comfortable eating EYES: Pupils equal. Conjunctiva normal. HEENT: External appearance of nose and ears normal, oral cavity grossly normal right forehead hematoma with some bruising. NECK: JVD not raised; masses not palpable. HEART: First and second heart sounds are normal; no edema. LUNGS: Respiratory rate normal; diminished breath sounds. ABDOMEN: Soft, nontender, liver spleen not palpable, no masses palpable. PSYCH: Patient didn't tell her name, knows she has not hospital [place] cannot tell the name. Thinks is 1941. Not sure about the season.l. MUSCULOSKELETAL:No Clubbing/cyanosis;muscles-grossly intact. Evidence of OA multiple joints. Limited range of motion right hip INVESTIGATIONS, reviewed in the clinical context: White count 8 hemoglobin 11.9 platelets 161 potassium 3.2 creatinine 0.5 to albumin 3.1 Hip pelvis x-ray: Right femur fracture. CT brain C-spine without contrast: Multiple cervical spondylitic changes. No fracture. Cerebral atrophy. Large right-sided periorbital scalp hematoma. EKG tracing personally reviewed by me-sinus bradycardia rate of 49. Chest x-ray film personally reviewed by me-cardiomegaly. Prominent pulmonary artery. Hyperinflation Assessment plan: -Right femoral neck fracture secondary to mechanical fall Right hip hemiarthroplasty by Dr. Mccauley -Severe cognitive impairment. Late onset Alzheimer's dementia -Bradycardia. Stop metoprolol Telemetry -Hypothyroid Synthroid 88 g -Hyperlipidemia Lipitor 20 mg daily at bedtime -Chronic nicotine dependence, single smoker Nicotine patch -Hypokalemia Replace potassium -Hyponatremia Encourage oral intake -Mild protein calorie malnutrition Ensure -Chronic gait dysfunction Fall precautions -Primary osteoarthritis multiple joints including chronic low back pain Tylenol as needed -DO NOT RESUSCITATE Continue current medication treatment plan. Discussed with the son at the bedside. Awaiting placement to rehab. Thank you Dr. Mccauley, will follow
[2022-01-24] MEDS: LEVOTHYROXINE 88 MCG TAB PO SCH (05:33)
[2022-01-24 05:57] LABS: Basophils % (A) 0 %; Eosinophils % (A) 0 %; HCT 29.3 % (34.0-46.0); HGB 9.8 gm/dL (11.4-16.0); Lymphocytes # (A) 0.9 k/uL (1.0-4.8); Lymphocytes % (A) 11 %; MCHC 33.5 g/dL (31.0-37.0); MCV 95.5 fL (80.0-100.0); Mean Platelet Volume 8.1; Monocytes # (A) 0.4 k/uL (0-1.0); Monocytes % (A) 5 %; Neutrophils # (A) 6.6 k/uL (1.3-7.7); Neutrophils % (A) 82 %; Platelet Count 133 k/uL (150-450); RBC 3.07 m/uL (3.80-5.40); RDW 13.5 % (11.5-15.5); WBC 8.1 k/uL (3.8-10.6)
[2022-01-24 06:10] LABS: African American GFR (CKD) >90 (>60 ml/min/1.73 sqM); Anion Gap 3 mmol/L; Blood Urea Nitrogen 15 mg/dL (7-17); Calcium 8.1 mg/dL (8.4-10.2); Carbon Dioxide 25 mmol/L (22-30); Chloride 99 mmol/L (98-107); Glucose 105 mg/dL (74-99); Non-African American GFR(CKD) 89 (>60 ml/min/1.73 sqM); Potassium 3.3 mmol/L (3.5-5.1); Sodium 127 mmol/L (137-145)
[2022-01-24] MEDS ORDERED: Potassium Replacement Protocol 1 EACH MISC MISCELLANE PRN (07:57)
--- NOTE | 2022-01-24 08:43 | P.OP ---
Date of Procedure: 01/22/22 Preoperative Diagnosis: 1. Right femoral neck fracture, complete, displaced, closed 2. s/p ffs 3. BHT with facial laceration Postoperative Diagnosis: 1. Right femoral neck fracture, complete, displaced, closed 2. s/p ffs 3. BHT with facial laceration Procedure(s) Performed: 1. Right hip hemiarthroplasty Implants: [employer] F: 0-0 Head 45, 28, +8 Anesthesia: GETA Surgeon: Adolfo Mccauley Dental Services Director #1: Whitney Campos (Was present and assisted in all aspects of the case from positioing to dressing placement) Estimated Blood Loss (ml): 75 IV fluids (ml): 700 Urine output (ml): 150 Pathology: none sent Condition: stable Disposition: PACU Indications for Procedure: Rosalba is a 81-year-old female presenting for evaluation of sudden onset right hip pain, inability to ambulate afterfall from standing. It was my pleasure to have seen and examined Rosalba. In our visit today we have had a chance to go over subjective complaints, physical examination findings and treatments including the natural course history without intervention and various interventional options.her imaging demonstrates right femoral neck fracture completely displaced. On physical exam, Rosalba demonstrates pain with motion of right lower extremity, which is NV intact at this time. I have explained to the patient that this fracture needs stabilization. Based on the patients imaging, physical exam, and the rapid progression and disabling nature of her symptoms, at this time I recommend surgery in the form or a: right hip hemiarthroplasty I discussed the risk and benefits of this procedure at length withRosalba and her . Questions were invited and answered, and the patient wishes to proceed as outlined below. Currently, I am recommendin. right hip hemiarthroplasty Description of Procedure: The patient was seen and examined in the preoperative area. All preoperative protocols were followed. Informed consent was obtained risks and benefits of the procedure were discussed at length. Risks including bleeding infection damage to the surrounding tissue and risk of reoperation were discussed with the patient. Risk of anesthesia up to and including was a discussed with the patient. These are outlined in the risk reviewed. They were willing to accept these risks and all of the risks of surgery. The patient was given a weight- based dose of antibiotics in the form of 2 g Ancef. The patient was seen and evaluated by the anesthesia team who deemed them fit for surgery. The site was marked, the patient was willing to proceed with the procedure. The patient was transferred to the operative suite by the Department of anesthesia. There were then drifted off to sleep by the department of anesthesia and GETA anesthesia was used. Once adequate anesthesia had been obtained the patient was carefully transferred to the operative bed. All bony prominences were padded accordingly. SCDs were placed on the nonoperative lower extremities. Arms were well padded. with the right hip up on a pegboard well padded all bony areas were padded accordingly. Preoperative briefing was done with the operative team and everyone was ready for the procedure to start. The patients Right leg was then prepped and draped in the normal sterile fashion. Timeout was then performed and all parties in agreement with the procedure to be performed. incision was made over the last the patient's right hip and standard posterior approach to the proximal femur was taken. Charmley retractor was placed deep to the tensor fascia. Then identify the posterior external rotators and these were released and tagged with tag stitch. Piriformis was released and tagged with a fixation as well. Capsulotomy was made in L-shaped form. Then dislocated the hip a cleanup cut was made 1 fingerbreadth above the lesser trochanter. Then removed the femoral head and measured it. We then trialed the bipolar cup and a 47 trial fit nicely. Then proceeded with preparation of the proximal femur. Box osteotome was used to axis the femur followed by a canal finder. Rasping was then used to widen this. We then sequentially broached until we reached a size 4 stem which was stable and in good position and lateralized. We then trialed this with a standard head and stem. The hip was atraumatic medically reduced and was stable throughout motion and had good leg lengths. We then selected final components for this. The hip was then dislocated and the broach remained stable. Removed the trial components thoroughly irrigated the wound bed as well as acetabular cup and femur. We then placed the final stem and impacted into place. Once it was in position we tested it was stable. Within p lace the bipolar head impacted it and it was stable. We then atraumatically reduced the hip to the range of motion and was stable throughout range of motion. Leg lengths were equal. We then again irrigated with Irricept in normal sterile saline. Posterior capsule closure was achieved. This is done with Ethibond stitch through drill holes in the posterior aspect of the greater trochanter. Then oversewed this with a Ethibond stitch. The tensor fascia was closed #1 Vicryl in a running locking fashion followed by 0 Vicryl in deep subcu tissue 2-0 Vicryl and superficial subcu tissue throughout strata fix and subcuticular tissue. The wound was then cleaned and dressed sterilely with an exofin tape and glue. It was dressed after the glue was dry with Optifoam dressing. The patient was placed in an abduction pillow. The patient was then transferred back to their hospital bed. There were awakened by department of anesthesia having tolerated the procedure very well with no complications. The patient was then transported to the postoperative care unit in stable condition.
[2022-01-24] MEDS: IPRATROPIUM-ALBUTEROL 3 ML NEB INHALATION SCH ×3 (09:19→20:14)
[2022-01-24] MEDS: ENOXAPARIN 40 MG/0.4 ML SYRINGE SQ SCH (10:33)
[2022-01-24] MEDS: CHOLECALCIFEROL 25 MCG (1000 IU) TABLET PO SCH (10:34)
[2022-01-24] MEDS: MULTIVITAMINS, THERA 1 EACH TAB PO SCH (10:34)
[2022-01-24] MEDS: FERROUS SULFATE 325 MG TAB PO SCH ×2 (10:37→17:23)
[2022-01-24] MEDS: POTASSIUM CHLORIDE ER 20 MEQ TAB.ER PO SCH ×2 (10:37→12:51)
[2022-01-24] MEDS: NICOTINE 21MG/24HR PATCH TRANSDERM SCH (10:45)
--- NOTE | 2022-01-24 11:35 | P.PN ---
Subjective Progress Note Date: 01/24/22 Principal diagnosis: Status post right hip hemiarthroplasty Patient was evaluated at bedside today, she is resting comfortably in her hospital bed. She is having minimal discomfort to the right lower extremity. Denies any headaches, lightheadedness, chest pain or shortness of breath at this time. Objective - Vital Signs Vital signs: Vital Signs Temp 98.3 F 01/24/22 05:00 Pulse 77 01/24/22 05:00 Resp 16 01/24/22 05:00 BP 156/71 01/24/22 05:00 Pulse Ox 95 01/24/22 05:00 FiO2 Intake & Output 01/23/22 01/24/22 01/24/22 18:59 06:59 18:59 Intake Total 200 Output Total 200 Balance 0 Intake: Oral 200 Output: Urine 200 Other: Voiding Method Indwelling Catheter Bedside Commode # Voids 2 1 - Exam Right lower extremity: Mild swelling present throughout the extremity. There is mild ecchymosis surrounding the incision. The postoperative bandage is in good position and condition. Calf soft, no tenderness with palpation. Plantar flexion, dorsiflexion, EHL, FHL are intact. Sensory exam light touch is intact throughout the extremity - Labs CBC & Chem 7: 01/24/22 05:32 01/24/22 05:32 Labs: Abnormal Lab Results - Last 24 Hours (Table) 01/24/22 01/24/22 Range/Units 05:32 05:32 RBC 3.07 L (3.80-5.40) m/uL Hgb 9.8 L (11.4-16.0) gm/dL Hct 29.3 L (34.0-46.0) % Plt Count 133 L (150-450) k/uL Lymphocytes # 0.9 L (1.0-4.8) k/uL Sodium 127 L (137-145) mmol/L Potassium 3.3 L (3.5-5.1) mmol/L Glucose 105 H (74-99) mg/dL Calcium 8.1 L (8.4-10.2) mg/dL Assessment and Plan Assessment: Postoperative day #2 status post right hip hemiarthroplasty Plan: Pain control, continue use of oral medication as needed DVT prophylaxis, continue subcu medication Weight-bear as tolerated, utilize walker at all times Continue PT/OT Encourage incentive spirometer Medical recommendations Discharge planning: Anticipated discharge to rehab on 01/26/2022 Time with Patient: Less than 30
[2022-01-24] MEDS: HYDROmorphone 0.5 MG/0.5 ML SYRINGE IVP PRN (12:51)
--- NOTE | 2022-01-24 14:36 | P.PN ---
Progress Note - Text Progress Note Date: 01/24/22 - Chief Complaint Fall Hospital course This is a pleasant 81-year-old patient who follows with Dr. Hope. Chronic stable medical conditions include dementia, hypothyroid, chronic low back pain, smoker. Because underlying dementia patient somewhat limited historian but able to answer questions. It is unclear leading to his circumstances but patient had a fall. Hitting the right forehead in the right hip. Had been complaining of pain in the right hip. Fond of acute right femoral neck fracture. Has a left hip prosthesis. Single full hematoma on the right forehead. Denies any chest pain or palpitations. Patient unsure as to why she fell down. It may be noted that patient's heart rate was in the 40s. Lopressor has been discontinued. 01/23/2022: As stated underwent right hip hemiarthroplasty. Pain control. Eating fair. Discussed this out of the bedside. Pain he to go to rehab. 01/24/2022: Oral intake fair. Pain control. Using bedside,. Looking for rehab DC on Wednesday. Active Medications Hydrocodone Bitart/Acetaminophen (Hydrocodone/Apap 5-325mg 1 Each Tab) 1 each PO Q4HR PRN PRN Reason: Pain Scale 1 to 5 Last Admin: 01/23/22 14:27 Dose: 1 each Hydrocodone Bitart/Acetaminophen (Hydrocodone/Apap 7.5-325mg 1 Each Tab) 1 each PO Q6H PRN PRN Reason: Pain Scale 6 to 10 Last Admin: 01/23/22 21:34 Dose: 1 each Albuterol/Ipratropium (Ipratropium-Albuterol 3 Ml Neb) 3 ml INHALATION RT-TID [facility] Last Admin: 01/24/22 12:03 Dose: Not Given Atorvastatin Calcium (Atorvastatin 20 Mg Tab) 20 mg PO HS [facility] Last Admin: 01/23/22 21:34 Dose: 20 mg Cholecalciferol (Cholecalciferol 25 Mcg (1000 Iu) Tablet) 50 mcg PO DAILY [facility] Last Admin: 01/24/22 10:34 Dose: 50 mcg Enoxaparin Sodium (Enoxaparin 40 Mg/0.4 Ml Syringe) 40 mg SQ DAILY [facility] Last Admin: 01/24/22 10:33 Dose: 40 mg Ferrous Sulfate (Ferrous Sulfate 325 Mg Tab) 325 mg PO BID-W/MEALS [facility] Last Admin: 01/24/22 10:37 Dose: 325 mg Hydromorphone HCl (Hydromorphone 0.5 Mg/0.5 Ml Syringe) 0.5 mg IVP Q4HR PRN PRN Reason: Pain Last Admin: 01/24/22 12:51 Dose: 0.5 mg Cefazolin Sodium 2 gm/ Sodium (Chloride) 50 mls @ 100 mls/hr IVPB Q8HR [facility]; Protocol Last Admin: 01/24/22 10:33 Dose: 100 mls/hr Levothyroxine Sodium (Levothyroxine 88 Mcg Tab) 88 mcg PO DAILY@0630 [facility] Last Admin: 01/24/22 05:33 Dose: 88 mcg Miscellaneous Information (Potassium Replacement Protocol 1 Each Misc) 1 each MISCELLANE DAILY PRN; Protocol PRN Reason: Per Protocol Miscellaneous Information (Potassium Replacement Protocol 1 Each Misc) 1 each MISCELLANE DAILY PRN; Protocol PRN Reason: Per Protocol Multivitamins (Multivitamins, Thera 1 Each Tab) 1 each PO DAILY [facility] Last Admin: 01/24/22 10:34 Dose: 1 each Naloxone HCl (Naloxone 0.4 Mg/Ml 1 Ml Vial) 0.2 mg IV Q2M PRN PRN Reason: Opioid Reversal Nicotine (Nicotine 21mg/24hr Patch) 1 patch TRANSDERM DAILY [facility] Last Admin: 01/24/22 10:45 Dose: 1 patch Ondansetron HCl (Ondansetron 4 Mg/2 Ml Vial) 4 mg IVP Q6HR PRN PRN Reason: Nausea And Vomiting Last Admin: 01/23/22 22:43 Dose: 4 mg Senna/Docusate Sodium (Sennosides-Docusate Sodium 1 Each Tab) 2 each PO HS [facility] Last Admin: 01/23/22 21:34 Dose: 2 each Past medical history to include: CVA/TIA, memory impairment, hypothyroid, chronic low back pain, unsteady gait Social history: Smokes less than a pack a day drinks one [place] a day. Smoking since the age of 19. Lives with her . Physical examination: VITAL SIGNS: 99.2, 80, 18, 136-73, 92% room air GENERAL: Sitting up comfortable EYES: Pupils equal. Conjunctiva normal. HEENT: External appearance of nose and ears normal, oral cavity grossly normal right forehead hematoma with some bruising. NECK: JVD not raised; masses not palpable. HEART: First and second heart sounds are normal; no edema. LUNGS: Respiratory rate normal; diminished breath sounds. ABDOMEN: Soft, nontender, liver spleen not palpable, no masses palpable. PSYCH: She is able to answer simple questions MUSCULOSKELETAL:No Clubbing/cyanosis;muscles-grossly intact. Evidence of OA multiple joints. Limited range of motion right hip INVESTIGATIONS, reviewed in the clinical context: 01/24/2022: White count 8.1 hemoglobin 9.8 potassium 3.3 sodium 127 creatinine 0.54 White count 8 hemoglobin 11.9 platelets 161 potassium 3.2 creatinine 0.5 to albumin 3.1 Hip pelvis x-ray: Right femur fracture. CT brain C-spine without contrast: Multiple cervical spondylitic changes. No fracture. Cerebral atrophy. Large right-sided periorbital scalp hematoma. EKG tracing personally reviewed by me-sinus bradycardia rate of 49. Chest x-ray film personally reviewed by me-cardiomegaly. Prominent pulmonary artery. Hyperinflation Assessment plan: -Right femoral neck fracture secondary to mechanical fall Right hip hemiarthroplasty by Dr. Mccauley -Severe cognitive impairment. Late onset Alzheimer's dementia -Bradycardia. Stop metoprolol Telemetry -Hypothyroid Synthroid 88 g -Hyperlipidemia Lipitor 20 mg daily at bedtime -Chronic nicotine dependence, single smoker Nicotine patch -Hypokalemia Replace potassium -Hyponatremia Encourage oral intake -Mild protein calorie malnutrition Ensure -Chronic gait dysfunction Fall precautions -Primary osteoarthritis multiple joints including chronic low back pain Tylenol as needed -Hyponatremia Encourage solid food intake -DO NOT RESUSCITATE Encourage by mouth fluid intake. Patient does skip meals. Other medications to continue. Discussed with son at the bedside. Thank you Dr. Mccauley, will follow
[2022-01-24 20:13] VITALS: RESP 16
[2022-01-24] MEDS: ATORVASTATIN 20 MG TAB PO SCH (20:50)
[2022-01-24] MEDS: HYDROcodone/APAP 7.5-325MG 1 EACH TAB PO PRN (20:51)
[2022-01-24] MEDS: SENNOSIDES-DOCUSATE SODIUM 1 EACH TAB PO SCH (20:51)
[2022-01-25 00:38] LABS: Basophils # (A) 0.1 k/uL (0-0.2); Basophils % (A) 1 %; Eosinophils % (A) 0 %; HCT 26.2 % (34.0-46.0); HGB 9.1 gm/dL (11.4-16.0); Lymphocytes # (A) 0.8 k/uL (1.0-4.8); Lymphocytes % (A) 9 %; MCH 32.7 pg (25.0-35.0); MCHC 34.8 g/dL (31.0-37.0); MCV 93.8 fL (80.0-100.0); Mean Platelet Volume 8.2; Monocytes # (A) 0.5 k/uL (0-1.0); Monocytes % (A) 6 %; Neutrophils # (A) 7.4 k/uL (1.3-7.7); Neutrophils % (A) 83 %; Platelet Count 142 k/uL (150-450); RBC 2.79 m/uL (3.80-5.40); WBC 8.9 k/uL (3.8-10.6)
[2022-01-25] MEDS: LEVOTHYROXINE 88 MCG TAB PO SCH (06:29)
[2022-01-25] MEDS: IPRATROPIUM-ALBUTEROL 3 ML NEB INHALATION SCH ×3 (09:07→20:10)
[2022-01-25] MEDS: ENOXAPARIN 40 MG/0.4 ML SYRINGE SQ SCH (10:18)
[2022-01-25] MEDS: HYDROcodone/APAP 7.5-325MG 1 EACH TAB PO PRN (10:19)
[2022-01-25] MEDS: CHOLECALCIFEROL 25 MCG (1000 IU) TABLET PO SCH (10:20)
[2022-01-25] MEDS: MULTIVITAMINS, THERA 1 EACH TAB PO SCH (10:20)
[2022-01-25] MEDS: FERROUS SULFATE 325 MG TAB PO SCH ×2 (10:20→17:12)
[2022-01-25] MEDS: NICOTINE 21MG/24HR PATCH TRANSDERM SCH (10:30)
--- NOTE | 2022-01-25 10:49 | P.PN ---
Subjective Progress Note Date: 01/25/22 Principal diagnosis: Status post right hip hemiarthroplasty Patient was evaluated at bedside today, she is resting comfortably in her hospital bed. She is having minimal discomfort to the right lower extremity. Denies any headaches, lightheadedness, chest pain or shortness of breath at this time. Objective - Vital Signs Vital signs: Vital Signs Temp 98.2 F 01/25/22 04:39 Pulse 86 01/25/22 09:19 Resp 16 01/25/22 04:39 BP 135/70 01/25/22 04:39 Pulse Ox 96 01/25/22 04:39 FiO2 Intake & Output 01/24/22 01/25/22 01/25/22 18:59 06:59 18:59 Intake Total 240 Output Total 660 Balance -420 Intake: Oral 240 Output: Urine 660 Other: Voiding Method Bedside Commode Toilet Bedside Commode # Voids 1 2 # Bowel Movements 0 - Exam Right lower extremity: Mild swelling present throughout the extremity. There is mild ecchymosis surrounding the incision. The postoperative bandage is in good position and condition. Calf soft, no tenderness with palpation. Plantar flexion, dorsiflexion, EHL, FHL are intact. Sensory exam light touch is intact throughout the extremity - Labs CBC & Chem 7: 01/24/22 23:44 01/24/22 05:32 Labs: Abnormal Lab Results - Last 24 Hours (Table) 01/24/22 Range/Units 23:44 RBC 2.79 L (3.80-5.40) m/uL Hgb 9.1 L (11.4-16.0) gm/dL Hct 26.2 L (34.0-46.0) % Plt Count 142 L (150-450) k/uL Lymphocytes # 0.8 L (1.0-4.8) k/uL Assessment and Plan Assessment: Postoperative day #3 status post right hip hemiarthroplasty Plan: Pain control, continue use of oral medication as needed DVT prophylaxis, continue subcu medication Weight-bear as tolerated, utilize walker at all times Abductor pillow while in bed Continue PT/OT Encourage incentive spirometer Medical recommendations Discharge planning: Anticipated discharge to rehab on 01/26/2022 Time with Patient: Less than 30
[2022-01-25 12:17] LABS: Basophils % (A) 0 %; Eosinophils % (A) 0 %; HCT 27.6 % (34.0-46.0); HGB 9.4 gm/dL (11.4-16.0); Lymphocytes # (A) 0.6 k/uL (1.0-4.8); Lymphocytes % (A) 8 %; MCH 32.4 pg (25.0-35.0); MCHC 34.2 g/dL (31.0-37.0); MCV 94.6 fL (80.0-100.0); Monocytes # (A) 0.3 k/uL (0-1.0); Monocytes % (A) 5 %; Neutrophils # (A) 6.3 k/uL (1.3-7.7); Neutrophils % (A) 86 %; Platelet Count 150 k/uL (150-450); RBC 2.92 m/uL (3.80-5.40); WBC 7.3 k/uL (3.8-10.6)
[2022-01-25 12:43] LABS: ALT 12 U/L (4-34); AST 34 U/L (14-36); African American GFR (CKD) >90 (>60 ml/min/1.73 sqM); Albumin 2.7 g/dL (3.5-5.0); Albumin/Globulin Ratio 1.3; Alkaline Phosphatase 51 U/L (38-126); Anion Gap 5 mmol/L; Blood Urea Nitrogen 13 mg/dL (7-17); Calcium 8.1 mg/dL (8.4-10.2); Carbon Dioxide 24 mmol/L (22-30); Chloride 98 mmol/L (98-107); Globulin 2.1 g/dL; Glucose 154 mg/dL (74-99); Non-African American GFR(CKD) 90 (>60 ml/min/1.73 sqM); Potassium 3.1 mmol/L (3.5-5.1); Sodium 127 mmol/L (137-145); Total Bilirubin 0.4 mg/dL (0.2-1.3); Total Protein 4.8 g/dL (6.3-8.2)
[2022-01-25] MEDS ORDERED: POTASSIUM CHLORIDE ER 20 MEQ TAB.ER PO STA (12:44)
--- NOTE | 2022-01-25 16:19 | P.PN ---
Progress Note - Text Progress Note Date: 01/25/22 - Chief Complaint Fall Hospital course This is a pleasant 81-year-old patient who follows with Dr. Hope. Chronic stable medical conditions include dementia, hypothyroid, chronic low back pain, smoker. Because underlying dementia patient somewhat limited historian but able to answer questions. It is unclear leading to his circumstances but patient had a fall. Hitting the right forehead in the right hip. Had been complaining of pain in the right hip. Fond of acute right femoral neck fracture. Has a left hip prosthesis. Single full hematoma on the right forehead. Denies any chest pain or palpitations. Patient unsure as to why she fell down. It may be noted that patient's heart rate was in the 40s. Lopressor has been discontinued. 01/23/2022: As stated underwent right hip hemiarthroplasty. Pain control. Eating fair. Discussed this out of the bedside. Pain he to go to rehab. 01/24/2022: Oral intake fair. Pain control. Using bedside,. Looking for rehab DC on Wednesday. 01/25/2022: Pain is better. Family visiting. Oral intake fair. Questions answered. Bruising on the right side of the face improving. Active Medications Hydrocodone Bitart/Acetaminophen (Hydrocodone/Apap 5-325mg 1 Each Tab) 1 each PO Q4HR PRN PRN Reason: Pain Scale 1 to 5 Last Admin: 01/23/22 14:27 Dose: 1 each Hydrocodone Bitart/Acetaminophen (Hydrocodone/Apap 7.5-325mg 1 Each Tab) 1 each PO Q6H PRN PRN Reason: Pain Scale 6 to 10 Last Admin: 01/25/22 10:19 Dose: 1 each Albuterol/Ipratropium (Ipratropium-Albuterol 3 Ml Neb) 3 ml INHALATION RT-TID [facility] Last Admin: 01/25/22 11:24 Dose: 3 ml Atorvastatin Calcium (Atorvastatin 20 Mg Tab) 20 mg PO HS [facility] Last Admin: 01/24/22 20:50 Dose: 20 mg Cholecalciferol (Cholecalciferol 25 Mcg (1000 Iu) Tablet) 50 mcg PO DAILY [facility] Last Admin: 01/25/22 10:20 Dose: 50 mcg Enoxaparin Sodium (Enoxaparin 40 Mg/0.4 Ml Syringe) 40 mg SQ DAILY [facility] Last Admin: 01/25/22 10:18 Dose: 40 mg Ferrous Sulfate (Ferrous Sulfate 325 Mg Tab) 325 mg PO BID-W/MEALS [facility] Last Admin: 01/25/22 10:20 Dose: 325 mg Hydromorphone HCl (Hydromorphone 0.5 Mg/0.5 Ml Syringe) 0.5 mg IVP Q4HR PRN PRN Reason: Pain Last Admin: 01/24/22 12:51 Dose: 0.5 mg Cefazolin Sodium 2 gm/ Sodium (Chloride) 50 mls @ 100 mls/hr IVPB Q8HR [facility]; Protocol Last Admin: 01/25/22 10:18 Dose: 100 mls/hr Levothyroxine Sodium (Levothyroxine 88 Mcg Tab) 88 mcg PO DAILY@0630 [facility] Last Admin: 01/25/22 06:29 Dose: 88 mcg Miscellaneous Information (Potassium Replacement Protocol 1 Each Misc) 1 each MISCELLANE DAILY PRN; Protocol PRN Reason: Per Protocol Multivitamins (Multivitamins, Thera 1 Each Tab) 1 each PO DAILY [facility] Last Admin: 01/25/22 10:20 Dose: 1 each Naloxone HCl (Naloxone 0.4 Mg/Ml 1 Ml Vial) 0.2 mg IV Q2M PRN PRN Reason: Opioid Reversal Nicotine (Nicotine 21mg/24hr Patch) 1 patch TRANSDERM DAILY [facility] Last Admin: 01/25/22 10:30 Dose: Not Given Ondansetron HCl (Ondansetron 4 Mg/2 Ml Vial) 4 mg IVP Q6HR PRN PRN Reason: Nausea And Vomiting Last Admin: 01/23/22 22:43 Dose: 4 mg Senna/Docusate Sodium (Sennosides-Docusate Sodium 1 Each Tab) 2 each PO HS [facility] Last Admin: 01/24/22 20:51 Dose: 2 each Past medical history to include: CVA/TIA, memory impairment, hypothyroid, chronic low back pain, unsteady gait Social history: Smokes less than a pack a day drinks one [place] a day. Smoking since the age of 19. Lives with her . Physical examination: VITAL SIGNS: 98.4, 100, 16, 123/70, 96% room air GENERAL: Declining in bed, awake, comfortable EYES: Pupils equal. Conjunctiva normal. HEENT: External appearance of nose and ears normal, oral cavity grossly normal right forehead and face bruising improving NECK: JVD not raised; masses not palpable. HEART: First and second heart sounds are normal; no edema. LUNGS: Respiratory rate normal; diminished breath sounds. ABDOMEN: Soft, nontender, liver spleen not palpable, no masses palpable. PSYCH: She is able to answer simple questions MUSCULOSKELETAL:No Clubbing/cyanosis;muscles-grossly intact. Evidence of OA multiple joints. Limited range of motion right hip INVESTIGATIONS, reviewed in the clinical context: 01/25/2022: Hemoglobin 9.4 potassium 3.1 sodium 127 01/24/2022: White count 8.1 hemoglobin 9.8 potassium 3.3 sodium 127 creatinine 0.54 White count 8 hemoglobin 11.9 platelets 161 potassium 3.2 creatinine 0.5 to albumin 3.1 Hip pelvis x-ray: Right femur fracture. CT brain C-spine without contrast: Multiple cervical spondylitic changes. No fracture. Cerebral atrophy. Large right-sided periorbital scalp hematoma. EKG tracing personally reviewed by me-sinus bradycardia rate of 49. Chest x-ray film personally reviewed by me-cardiomegaly. Prominent pulmonary artery. Hyperinflation Assessment plan: -Right femoral neck fracture secondary to mechanical fall Right hip hemiarthroplasty by Dr. Mccauley -Severe cognitive impairment. Late onset Alzheimer's dementia -Bradycardia. Stop metoprolol Telemetry -Hypothyroid Synthroid 88 g -Hyperlipidemia Lipitor 20 mg daily at bedtime -Chronic nicotine dependence, single smoker Nicotine patch -Hypokalemia Replace potassium -Hyponatremia Encourage oral intake -Mild protein calorie malnutrition Ensure -Chronic gait dysfunction Fall precautions -Primary osteoarthritis multiple joints including chronic low back pain Tylenol as needed -Hyponatremia Encourage solid food intake -DO NOT RESUSCITATE Encourage by mouth 4 intake. Patient does skip meals. Other medications to continue. Discussed with family at bedside. Pending rehab.. Thank you Dr. Mccauley,
[2022-01-25] MEDS: HYDROmorphone 0.5 MG/0.5 ML SYRINGE IVP PRN ×2 (17:15→22:00)
[2022-01-25] MEDS: ATORVASTATIN 20 MG TAB PO SCH (21:05)
[2022-01-25] MEDS: SENNOSIDES-DOCUSATE SODIUM 1 EACH TAB PO SCH (21:05)
[2022-01-26] MEDS: HYDROcodone/APAP 7.5-325MG 1 EACH TAB PO PRN (02:34)
[2022-01-26] MEDS: LEVOTHYROXINE 88 MCG TAB PO SCH (05:42)
[2022-01-26 06:17] LABS: Appearance,Urine Clear (Clear); Bilirubin,Urine Negative (Negative); Blood,Urine Negative (Negative); Color,Urine Colorless; Glucose,Urine (UA) Negative (Negative); Ketones,Urine Negative (Negative); Leukocyte Esterase,Urine Negative (Negative); Nitrite,Urine Negative (Negative); Protein,Urine Negative (Negative); Specific Gravity,Urine 1.004 (1.001-1.035); Urobilinogen,Urine <2.0 mg/dL (<2.0)
[2022-01-26 06:37] LABS: African American GFR (CKD) >90 (>60 ml/min/1.73 sqM); Anion Gap 4 mmol/L; Blood Urea Nitrogen 13 mg/dL (7-17); Calcium 8.1 mg/dL (8.4-10.2); Carbon Dioxide 26 mmol/L (22-30); Chloride 96 mmol/L (98-107); Glucose 94 mg/dL (74-99); Non-African American GFR(CKD) 86 (>60 ml/min/1.73 sqM); Potassium 4.1 mmol/L (3.5-5.1); Sodium 126 mmol/L (137-145)
[2022-01-26] MEDS: IPRATROPIUM-ALBUTEROL 3 ML NEB INHALATION SCH ×2 (07:33→11:31)
--- NOTE | 2022-01-26 08:50 | P.PN ---
Subjective Progress Note Date: 01/26/22 Principal diagnosis: Status post right hip hemiarthroplasty Patient was evaluated at bedside today, she is resting comfortably in her hospital bed. She is having minimal discomfort to the right lower extremity. Denies any headaches, lightheadedness, chest pain or shortness of breath at this time. Objective - Vital Signs Vital signs: Vital Signs Temp 98.1 F 01/26/22 05:00 Pulse 74 01/26/22 05:00 Resp 16 01/26/22 05:00 BP 152/73 01/26/22 05:00 Pulse Ox 95 01/26/22 05:00 FiO2 Intake & Output 01/25/22 01/26/22 01/26/22 18:59 06:59 18:59 Intake Total 360 50 Output Total 300 Balance 360 -250 Intake: Intake, IV Titration 50 Amount ceFAZolin 2 gm In Sodium 50 Chloride 0.9% 50 ml @ 100 mls/hr IVPB Q8HR [facility] Rx# :[id number] Oral 360 Output: Urine 300 Straight 300 Other: Voiding Method Toilet Toilet Bedside Commode Bedside Commode # Voids 6 1 # Bowel Movements 1 0 1 - Exam Right lower extremity: Mild swelling present throughout the extremity. There is mild ecchymosis surrounding the incision. The postoperative bandage is in good position and condition. Calf soft, no tenderness with palpation. Plantar flexion, dorsiflexion, EHL, FHL are intact. Sensory exam light touch is intact throughout the extremity - Labs CBC & Chem 7: 01/25/22 12:08 01/26/22 05:17 Labs: Abnormal Lab Results - Last 24 Hours (Table) 01/25/22 01/25/22 01/26/22 Range/Units 12:08 12:08 05:17 RBC 2.92 L (3.80-5.40) m/uL Hgb 9.4 L (11.4-16.0) gm/dL Hct 27.6 L (34.0-46.0) % Lymphocytes # 0.6 L (1.0-4.8) k/uL Sodium 127 L 126 L (137-145) mmol/L Potassium 3.1 L (3.5-5.1) mmol/L Chloride 96 L (98-107) mmol/L Glucose 154 H (74-99) mg/dL Calcium 8.1 L 8.1 L (8.4-10.2) mg/dL Total Protein 4.8 L (6.3-8.2) g/dL Albumin 2.7 L (3.5-5.0) g/dL Assessment and Plan Assessment: Postoperative day #4 status post right hip hemiarthroplasty Plan: Pain control, plan for discharge on oral medication DVT prophylaxis, plan for discharge and subcu medication Weight-bear as tolerated, utilize walker at all times Abductor pillow while in bed Continue PT/OT Encourage incentive spirometer Medical recommendations Discharge planning: Stable for discharge to rehab today Time with Patient: Less than 30
[2022-01-26] MEDS: CHOLECALCIFEROL 25 MCG (1000 IU) TABLET PO SCH (08:55)
[2022-01-26] MEDS: MULTIVITAMINS, THERA 1 EACH TAB PO SCH (08:55)
[2022-01-26] MEDS: ENOXAPARIN 40 MG/0.4 ML SYRINGE SQ SCH (08:55)
[2022-01-26] MEDS: NICOTINE 21MG/24HR PATCH TRANSDERM SCH (08:55)
[2022-01-26] MEDS: FERROUS SULFATE 325 MG TAB PO SCH (08:55)
--- NOTE | 2022-01-26 09:02 | P.DS ---
Providers Date of admission: 01/21/22 20:41 Expected date of discharge: 01/26/22 Attending physician: Adolfo Mccauley DO Consults: 01/21/22 20:41 Consult Physician Urgent Consulting Provider: Eduin Harper Reason/Comments: Medical clearance Do you want consulting provider notified?: Yes Primary care physician: [facility] Course: Date of admission: 01/21/2022 Date of discharge: 01/26/2022 Admission diagnosis: Right femoral neck fracture Discharge diagnosis: Status post right hip hemiarthroplasty Attending physician: Dr. Mccauley Surgical procedures: Right hip hemiarthroplasty Brief history: Patient is a 81-year-old female who presented to [facility] on 01/21/2022 after falling and injuring her right lower extremity. It was determined the patient had a femoral neck fracture, she was admitted under our orthopedic service with plan for surgical intervention. Internal medicine was consulted for management. Hospital course: Details of patient's surgery can be found in operative report. Patient tolerated the procedure well and was subsequently transported to orthopedic floor. Patient's orthopeidc and medical care was provided daily. Patient had daily laboratory tests performed for evaluation of overall blood counts. Patient had daily physical therapy to include strengthening range of motion as well as education with walker ambulation. Patient was treated with Lovenox for their postoperative DVT prophylaxis during their inpatient stay. Patient was noted to have a relatively uneventful postoperative course. Patient reported satisfactory pain control with oral pain medications by postoperative day 0. Patient showed satisfactory progress with physical therapy. Patient moved steadily through the program and had no difficulty meeting the goals by postoperative day 4. Given patient's otherwise satisfactory course and having met physical therapy goals, plan is to discharge patient rehab on postoperative day 4. Discharge condition/disposition: Patient will be discharged to rehab in stable condition. Discharge medications: Instructions are given on resumption of patient's normal daily medications per primary care recommendation, in addition patient will be prescribed [place] 5 mg/325 mg, Senna S, Lovenox 40 mg, Ferrous Sulfate 325 Discharge instructions: 1. Wound care and infection precautions, keep incision dry and covered while showering, no lotions, creams, moisturizers. No soaking, tubs, pools, hottubs. Do not scrub over the incision. 2. Weight-bear as tolerated with walker / cane until follow-up. 3. Ice and elevate when necessary. Do not exceed 20 minutes per hour with ice pack. 4. Utilize compression sleeve until seen at first follow up appointment. 5. Visiting nursing care. 6. Home physical therapy. 7. Pain meds and anticoagulants per prescription. 8. Pain medication has potential to cause constipation. Increase oral fluid and fiber intake. Contact primary care provider if you have not had a bowel movement within 48 hours after discharge 9. No anti-inflammatory medication until discussed at first post operative visit, this including Motrin, Aleve, Mobic, Diclofenac 10. Follow up in office at 2 weeks postop with Nick Bird PA-C/Franc Luo 11. Follow up with your primary care doctor 7-10 days after discharge. 12. Contact [facility] with any questions, . Procedures: Right hip hemiarthroplasty Patient Condition at Discharge: Good Plan - Discharge Summary New Discharge Prescriptions: New Ferrous Sulfate [Iron (65 MG Elemental)] 325 mg PO BID #60 tab HYDROcodone/APAP 5-325MG [[place] 5-325] 1 tab PO Q6HR PRN #18 tab PRN Reason: Pain Sennosides/Docusate Sodium [Senna-S 8.6-50 mg Tablet] 2 each PO DAILY PRN #30 tablet PRN Reason: Constipation Enoxaparin [Lovenox] 40 mg SQ DAILY #25 each No Action Multivit with Calcium,Iron,Min [Women's Multivitamin] 1 tab PO DAILY Levothyroxine Sodium [Synthroid] 88 mcg PO DAILY Metoprolol Tartrate 25 mg PO DAILY Atorvastatin [Lipitor] 20 mg PO HS #30 tab Aspirin EC [Ecotrin Low Dose] 81 mg PO HS Cholecalciferol [Vitamin D3 (25 Mcg = 1000 Iu)] 50 mcg PO DAILY Discharge Medication List Multivit with Calcium,Iron,Min [Women's Multivitamin] 1 tab PO DAILY 10/22/17 [History] Levothyroxine Sodium [Synthroid] 88 mcg PO DAILY 11/12/19 [History] Aspirin EC [Ecotrin Low Dose] 81 mg PO HS 11/03/20 [History] Cholecalciferol [Vitamin D3 (25 Mcg = 1000 Iu)] 50 mcg PO DAILY 11/03/20 [History] Metoprolol Tartrate 25 mg PO DAILY 11/03/20 [History] Atorvastatin [Lipitor] 20 mg PO HS #30 tab 11/04/20 [Rx] Enoxaparin [Lovenox] 40 mg SQ DAILY #25 each 01/26/22 [Rx] Ferrous Sulfate [Iron (65 MG Elemental)] 325 mg PO BID #60 tab 01/26/22 [Rx] HYDROcodone/APAP 5-325MG [[place] 5-325] 1 tab PO Q6HR PRN #18 tab 01/26/22 [Rx] Sennosides/Docusate Sodium [Senna-S 8.6-50 mg Tablet] 2 each PO DAILY PRN #30 tablet 01/26/22 [Rx] Follow up Appointment(s)/Referral(s): Rudi Hope DO [Primary Care Provider] - 1-2 days Adolfo Mccauley DO [Doctor of Osteopathic Medicine] - 2 Weeks Activity/Diet/Wound Care/Special Instructions: Orthopedic Discharge Instructions: 1. Wound care and infection precautions, keep incision dry and covered while showering, no lotions, creams, moisturizers. No soaking, pools, hot tubs. Do not scrub over incision. 2. Weight-bear as tolerated with walker / cane until follow-up. 3. Ice and elevate when necessary. Do not exceed 20 minutes per hour with ice pack. 4. Utilize compression sleeve until seen at first follow up appointment. 5. Pain meds and anticoagulants per prescription. 6. Pain medication has potential to cause constipation. Increase oral fluid and fiber intake. Contact primary care provider if you have not had a bowel movement within 48 hours after discharge. 7. No anti-inflammatory medication until discussed at first post operative visit, this including Motrin, Aleve, Mobic, Diclofenac. 8. Follow up in office at 2 weeks postop with Nick Bird PA-C/Franc Padilla PA-C 9. Follow up with your primary care doctor 7-10 days after discharge. 10. Contact [facility] with any questions, . Discharge Disposition: TRANSFER TO SNF/ECF
[2022-01-26] MEDS: HYDROcodone/APAP 5-325MG 1 EACH TAB PO PRN (09:14)
[2022-01-26 11:36] VITALS: BP 133/76; PULSE 68; TEMP 98.2
--- NOTE | 2022-01-26 18:28 | P.PN ---
Progress Note - Text Progress Note Date: 01/26/22 - Chief Complaint Fall Hospital course This is a pleasant 81-year-old patient who follows with Dr. Hope. Chronic stable medical conditions include dementia, hypothyroid, chronic low back pain, smoker. Because underlying dementia patient somewhat limited historian but able to answer questions. It is unclear leading to his circumstances but patient had a fall. Hitting the right forehead in the right hip. Had been complaining of pain in the right hip. Fond of acute right femoral neck fracture. Has a left hip prosthesis. Single full hematoma on the right forehead. Denies any chest pain or palpitations. Patient unsure as to why she fell down. It may be noted that patient's heart rate was in the 40s. Lopressor has been discontinued. 01/23/2022: As stated underwent right hip hemiarthroplasty. Pain control. Eating fair. Discussed this out of the bedside. Pain he to go to rehab. 01/24/2022: Oral intake fair. Pain control. Using bedside,. Looking for rehab DC on Wednesday. 01/25/2022: Pain is better. Family visiting. Oral intake fair. Questions answered. Bruising on the right side of the face improving. 01/26/2022:. Stable. Will be going to rehab today. No new issues. Past medical history to include: CVA/TIA, memory impairment, hypothyroid, chronic low back pain, unsteady gait Social history: Smokes less than a pack a day drinks one [place] a day. Smoking since the age of 19. Lives with her . Physical examination: VITAL SIGNS: 98.2, 68, 16, 133 with 76, 95% room air GENERAL: Reclining in bed, awake, comfortable EYES: Pupils equal. Conjunctiva normal. HEENT: External appearance of nose and ears normal, oral cavity grossly normal right forehead and face bruising improving NECK: JVD not raised; masses not palpable. HEART: First and second heart sounds are normal; no edema. LUNGS: Respiratory rate normal; diminished breath sounds. ABDOMEN: Soft, nontender, liver spleen not palpable, no masses palpable. PSYCH: She is able to answer simple questions MUSCULOSKELETAL:No Clubbing/cyanosis;muscles-grossly intact. Evidence of OA multiple joints. Limited range of motion right hip INVESTIGATIONS, reviewed in the clinical context: 01/26/2022: Sodium 126 potassium 4.1 UA: Negative 01/24/2022: White count 8.1 hemoglobin 9.8 potassium 3.3 sodium 127 creatinine 0.54 White count 8 hemoglobin 11.9 platelets 161 potassium 3.2 creatinine 0.5 to albumin 3.1 Hip pelvis x-ray: Right femur fracture. CT brain C-spine without contrast: Multiple cervical spondylitic changes. No fracture. Cerebral atrophy. Large right-sided periorbital scalp hematoma. EKG tracing personally reviewed by me-sinus bradycardia rate of 49. Chest x-ray film personally reviewed by me-cardiomegaly. Prominent pulmonary artery. Hyperinflation Assessment plan: -Right femoral neck fracture secondary to mechanical fall Right hip hemiarthroplasty by Dr. Mccauley -Severe cognitive impairment. Late onset Alzheimer's dementia -Bradycardia. Stop metoprolol Telemetry -Hypothyroid Synthroid 88 g -Hyperlipidemia Lipitor 20 mg daily at bedtime -Chronic nicotine dependence, single smoker Nicotine patch -Hypokalemia Replace potassium -Hyponatremia Encourage oral intake -Mild protein calorie malnutrition Ensure -Chronic gait dysfunction Fall precautions -Primary osteoarthritis multiple joints including chronic low back pain Tylenol as needed -Hyponatremia Encourage solid food intake -DO NOT RESUSCITATE Medications reviewed. Stable for DC [address] Mccauley,
== END 2022-01-26 15:28 | DRG 522 ==
LOC: EC 18:46 → 5NMEDONC 20:41
PROVIDERS: ADMIT Orthopaedic Surgery; ATTEND Orthopaedic Surgery
PROC: 0HQ1XZZ Repair Face Skin, External Approach (ICD-10-PCS; 2022-01-21)
PROC: 0SRR0JZ Replacement of Right Hip Joint, Femoral Surface with Synthetic Substitute, Open Approach (ICD-10-PCS; principal; 2022-01-22 07:30)
DX: S72.001A Fracture of unspecified part of neck of right femur, initial encounter for closed fracture (principal); E44.1 Mild protein-calorie malnutrition; E87.1 Hypo-osmolality and hyponatremia; Y92.009 Unspecified place in unspecified non-institutional (private) residence as the place of occurrence of the external cause; S01.01XA Laceration without foreign body of scalp, initial encounter; Z66 Do not resuscitate; F02.C0 Dementia in other diseases classified elsewhere, severe, without behavioral disturbance, psychotic disturbance, mood disturbance, and anxiety; E03.9 Hypothyroidism, unspecified; G30.1 Alzheimer's disease with late onset; J44.9 Chronic obstructive pulmonary disease, unspecified; R00.1 Bradycardia, unspecified; R26.81 Unsteadiness on feet; F17.210 Nicotine dependence, cigarettes, uncomplicated; F40.240 Claustrophobia; G89.29 Other chronic pain; I25.2 Old myocardial infarction; Z86.73 Personal history of transient ischemic attack (TIA), and cerebral infarction without residual deficits; M54.9 Dorsalgia, unspecified; M15.9 Polyosteoarthritis, unspecified; Z68.20 Body mass index [BMI] 20.0-20.9, adult; Z79.890 Hormone replacement therapy; Z79.899 Other long term (current) drug therapy; Z80.8 Family history of malignant neoplasm of other organs or systems; Z88.1 Allergy status to other antibiotic agents; Z79.82 Long term (current) use of aspirin
CPT/HCPCS: 12013; 36415; 70450; 71045; 72125; 73501; 73502; 80048; 80053; 81003; 85025; 86850; 86900; 86901; 88305; 88311; 93005; 94640; 96374; 96376; 99285

== ENCOUNTER 2022-01-27 09:22 | Emergency (ER) | payer MEDICARE ==
[2022-01-27 09:29] VITALS: PULSE 78; RESP 18; TEMP 98.6
--- NOTE | 2022-01-27 09:44 | ED ---
Fall HPI - General Chief Complaint: Fall Stated Complaint: fall Time Seen by Provider: 01/27/22 09:22 Source: EMS Mode of arrival: EMS - History of Present Illness Initial Comments: 81-year-old female skilled nursing resident who was found sleeping in for this morning neck sore bed is unclear how she got there how long she had been there. She did recently have a right hip repair after a previous fall. She is found to have a contusion to the back for head she has multiple other bruises from previous falls. No other new was reported except for the occipital scalp from today. No nausea no vomiting no fevers chills sweats or other symptoms patient was awake and alert however somewhat confused on a normal basis. Per report her mentation is similar to baseline. MD Complaint: fall - Related Data Home Medications Medication Instructions Recorded Confirmed Multivit with Calcium,Iron,Min 1 tab PO DAILY 10/22/17 01/27/22 [Women's Multivitamin] Levothyroxine Sodium [Synthroid] 88 mcg PO DAILY@0600 11/12/19 01/27/22 Aspirin EC [Ecotrin Low Dose] 81 mg PO HS 11/03/20 01/27/22 Cholecalciferol [Vitamin D3 (25 50 mcg PO DAILY 11/03/20 01/27/22 Mcg = 1000 Iu)] Enoxaparin [Lovenox] 40 mg SQ HS 01/27/22 01/27/22 HYDROcodone/APAP 5-325MG [[place] 1 tab PO Q6H PRN 01/27/22 01/27/22 5-325] Ipratropium-Albuterol Nebulize 3 ml INHALATION RT-Q8H 01/27/22 01/27/22 [Duoneb 0.5 mg-3 mg/3 ml Soln] Nicotine 21Mg/24Hr Patch [Habitrol] 1 patch TRANSDERM DAILY@0600 01/27/22 01/27/22 Sennosides/Docusate Sodium 2 tab PO DAILY PRN 01/27/22 01/27/22 [Senna-S 8.6-50 mg Tablet] Previous Rx's Medication Instructions Recorded Atorvastatin [Lipitor] 20 mg PO HS #30 tab 11/04/20 Ferrous Sulfate [Iron (65 MG 325 mg PO BID #60 tab 01/26/22 Elemental)] Allergies Allergy/AdvReac Type Severity Reaction Status Date / Time azithromycin AdvReac Nausea & Verified 01/27/22 09:43 [From Zithromax Z-Gomez] Vomiting INDOOR ENVIRONMENTAL AdvReac Itching Uncoded 01/27/22 09:43 ALLERGIES Review of Systems ROS Statement: Those systems with pertinent positive or pertinent negative responses have been documented in the HPI. ROS Other: All systems not noted in ROS Statement are negative. Past Medical History Past Medical History: CVA/TIA, Memory Impairment, Thyroid Disorder Additional Past Medical History / Comment(s): chronic back pain, had stroke during back surgery-affected memory; balance wobbly since hip surgery Last Myocardial Infarction Date:: 2014 History of Any Multi-Drug Resistant Organisms: None Reported Past Surgical History: Appendectomy, Back Surgery, Orthopedic Surgery, Tonsillectomy Additional Past Surgical History / Comment(s): shoulder skin ca, knee surgery to left, ORIF left hip 2015, loop recorder insertion Past Anesthesia/Blood Transfusion Reactions: Postoperative Nausea & Vomiting (PONV) Additional Past Anesthesia/Blood Transfusion Reaction / Comment(s): claustrophobia, trouble waking up Past Psychological History: No Psychological Hx Reported Smoking Status: Current every day smoker Past Alcohol Use History: Daily Past Drug Use History: None Reported - Past Family History Mother Family Medical History: Renal Disease Father Family Medical History: Cancer Additional Family Medical History / Comment(s): skin cancer, at age 93 from old age General Exam - General Exam Comments Initial Comments: Is a well-developed and appearing female who is awake alert complaining of only of the cervical collar in place at this time. She also complains some right hip pain. Limitations: no limitations General appearance: alert, anxious Head exam: Present: normocephalic, normal inspection, other (Contusion/hematoma noted to the right of midline occipital scalp no step-off no crepitation no open wounds multiple old bruises and a previous laceration seen over the right eyebrow no evidence of any dehiscence.) Eye exam: Present: normal appearance, PERRL, EOMI. Absent: scleral icterus, conjunctival injection, periorbital swelling ENT exam: Present: mucous membranes dry Neck exam: Present: normal inspection, other (No genitourinary or bruits). Absent: tenderness, meningismus, lymphadenopathy Respiratory exam: Present: normal lung sounds bilaterally. Absent: respiratory distress, wheezes, rales, rhonchi, stridor Cardiovascular Exam: Present: regular rate, normal rhythm, normal heart sounds. Absent: systolic murmur, diastolic murmur, rubs, gallop, clicks GI/Abdominal exam: Present: soft, normal bowel sounds. Absent: distended, tenderness, guarding, rebound, rigid Extremities exam: Present: full ROM, normal capillary refill, other (Impression over the previous right hip surgical site no evidence of any bruising no evidence of any infectious process. Some mild tenderness palpation no definitive step-off or crepitation.). Absent: tenderness, pedal edema, joint swelling, calf tenderness Back exam: Present: normal inspection Neurological exam: Present: alert, altered, CN II-XII intact, other (Patient's baseline) Psychiatric exam: Present: normal affect, normal mood Skin exam: Present: warm, dry, intact, other (Multiple bruises in various states of healing noted over the face neck extremities right shoulder.). Absent: rash Course Vital Signs 01/27/22 01/27/22 09:23 11:01 Temperature 98.6 F Pulse Rate 78 78 Respiratory 18 18 Rate Blood Pressure 151/80 O2 Sat by Pulse 96 96 Oximetry Medical Decision Making - Medical Decision Making I did interpret the imaging at no evidence of acute processes at this time the patient be sent back to the emergency nursing facility. I did discuss this with the patient. At this time no further workup is indicated. - Radiology Data Interpreted by me: CT imaging interpreted by me showing no evidence of acute intracranial bleeding C-spine shows some degenerative changes but no evidence of acute fracture or subluxation. Additionally x-rays of the pelvis and right hip show no evidence of acute fractures or subluxation the right hip prosthetic is in good position. Disposition Clinical Impression: Fall, Contusion, hip, Scalp contusion Disposition: HOME SELF-CARE Condition: Good Instructions (If sedation given, give patient instructions): Fall Prevention for Older Adults (ED), Contusion in Adults (ED), Scalp Contusion in Adults (ED) Is patient prescribed a controlled substance at d/c from ED?: No Referrals: Rudi Hope DO [Primary Care Provider] - 1-2 days Decision Date: 01/27/22 Decision Time: 11:30
--- NOTE | 2022-01-27 10:05 | CT ---
EXAMINATION TYPE: CT brain alvaro webb con DATE OF EXAM: 01/27/2022 COMPARISON: 01/21/2022 HISTORY: Fall CT DLP: 1286.[address] of the brain was performed. The ventricles, basal cisterns and sulci overlying the cerebral convexities demonstrate mild enlargem ent. There is no evidence for intracranial hemorrhage or sulcal effacement. There is decreased attenuatio n about the periventricular white matter and deep white matter of both cerebral hemispheres, compatib le with chronic small vessel ischemia. No mass effects are seen. If symptoms persist consider MRI. Osseous calvarium is intact. Right frontal temporal scalp hematoma. IMPRESSION: 1. Age related atrophic and chronic small vessel ischemic change without acute intracranial process seen at this time. CT Cervical Spine: Unenhanced CT of the cervical spine was performed with bone and soft tissue window settings submitted . Coronal and sagittal reconstruction is obtained. There is normal alignment and prevertebral soft tissues. No evidence for acute cervical fracture. Ant erior subluxation of C4 and C5 to 0.1 mm is chronic in appearance. Scattered degenerative disc diseas e and spondylosis. Biapical scarring. IMPRESSION: 1. No evidence for acute fracture or subluxation of the cervical spine.
--- NOTE | 2022-01-27 10:54 | XR ---
EXAMINATION TYPE: XR Hip RT and AP Pelvis DATE OF EXAM: 01/27/2022 COMPARISON: Pelvic and right hip x-ray 6 days ago HISTORY: Recurrent fall injury with pain. TECHNIQUE: A single AP view of the pelvis is obtained. Two views of the hip are obtained. FINDINGS: [place] osseous structures are demineralized which is noted to lower radiographic sensitivi ty. Metallic hardware from bilateral hip arthroplasty now present. Old Healed fractures of the left s uperior and inferior pelvic rami are redemonstrated. Pubic symphysis intact. No new acute displaced f racture. Lucency from overlying bowel gas makes evaluation slightly suboptimal. Surgical change of th e lumbar spine is partially imaged. Vascular calcification overlies the sacrum similar to prior. Two views of right hip show no acute fracture or dislocation. Metallic hardware is satisfactory in po sition. Adjacent vertical skin sung are noted. IMPRESSION: There is no new acute displaced fracture in the pelvis or right hip.
[2022-01-27 12:07] VITALS: BP 147/84
== END 2022-01-27 12:07 | disposition home or self-care (01) ==
LOC: EC 09:22
DX: S70.01XA Contusion of right hip, initial encounter (principal); S00.03XA Contusion of scalp, initial encounter; F17.200 Nicotine dependence, unspecified, uncomplicated; E07.9 Disorder of thyroid, unspecified; Z88.1 Allergy status to other antibiotic agents; Z79.890 Hormone replacement therapy; Z79.82 Long term (current) use of aspirin; W06.XXXA Fall from bed, initial encounter
CPT/HCPCS: 70450; 72125; 73502; 99285

== ENCOUNTER 2022-02-16 01:34 | Emergency (ER) | payer MEDICARE ==
--- NOTE | 2022-02-16 01:40 | ED ---
Fall HPI - General Stated Complaint: Fall Time Seen by Provider: 02/16/22 01:39 Source: RN notes reviewed, old records reviewed, Caregiver Mode of arrival: EMS Limitations: altered mental status, physical limitation - History of Present Illness Initial Comments: This is an 81-year-old female to the emergency department for evaluation patient presents today for evaluation of altered mental status found down and hit the ground did hit her head no blood thinners. Patient's a poor strain secondary to clinical state MD Complaint: fall -: hour(s) When Fall Occurred: recurrent falls Fall Witnessed: yes, by living facility staff Place Fall Occurred: [facility] Loss of Consciousness: none Prolonged Down Time?: no Symptoms Prior to Fall: none Location: head Severity: mild Context: tripped/slipped Associated Symptoms: denies - Related Data Home Medications Medication Instructions Recorded Confirmed Multivit with Calcium,Iron,Min 1 tab PO DAILY 10/22/17 01/27/22 [Women's Multivitamin] Levothyroxine Sodium [Synthroid] 88 mcg PO DAILY@0600 11/12/19 01/27/22 Aspirin EC [Ecotrin Low Dose] 81 mg PO HS 11/03/20 01/27/22 Cholecalciferol [Vitamin D3 (25 50 mcg PO DAILY 11/03/20 01/27/22 Mcg = 1000 Iu)] Enoxaparin [Lovenox] 40 mg SQ HS 01/27/22 01/27/22 HYDROcodone/APAP 5-325MG [[place] 1 tab PO Q6H PRN 01/27/22 01/27/22 5-325] Ipratropium-Albuterol Nebulize 3 ml INHALATION RT-Q8H 01/27/22 01/27/22 [Duoneb 0.5 mg-3 mg/3 ml Soln] Nicotine 21Mg/24Hr Patch [Habitrol] 1 patch TRANSDERM DAILY@0600 01/27/22 Sennosides/Docusate Sodium 2 tab PO DAILY PRN 01/27/22 01/27/22 [Senna-S 8.6-50 mg Tablet] Previous Rx's Medication Instructions Recorded Atorvastatin [Lipitor] 20 mg PO HS #30 tab 11/04/20 Ferrous Sulfate [Iron (65 MG 325 mg PO BID #60 tab 01/26/22 Elemental)] Allergies Allergy/AdvReac Type Severity Reaction Status Date / Time azithromycin AdvReac Nausea & Verified 01/27/22 09:43 [From Zithromax Z-Gomez] Vomiting INDOOR ENVIRONMENTAL AdvReac Itching Uncoded 01/27/22 09:43 ALLERGIES Review of Systems ROS Statement: Those systems with pertinent positive or pertinent negative responses have been documented in the HPI. ROS Other: All systems not noted in ROS Statement are negative. Past Medical History Past Medical History: CVA/TIA, Memory Impairment, Thyroid Disorder Additional Past Medical History / Comment(s): chronic back pain, had stroke during back surgery-affected memory; balance wobbly since hip surgery Last Myocardial Infarction Date:: 2014 History of Any Multi-Drug Resistant Organisms: None Reported Past Surgical History: Appendectomy, Back Surgery, Orthopedic Surgery, Tonsillectomy Additional Past Surgical History / Comment(s): shoulder skin ca, knee surgery to left, ORIF left hip 2015, loop recorder insertion Past Anesthesia/Blood Transfusion Reactions: Postoperative Nausea & Vomiting (PONV) Additional Past Anesthesia/Blood Transfusion Reaction / Comment(s): claustrophobia, trouble waking up Past Psychological History: No Psychological Hx Reported Smoking Status: Current every day smoker Past Alcohol Use History: Daily Past Drug Use History: None Reported - Past Family History Mother Family Medical History: Renal Disease Father Family Medical History: Cancer Additional Family Medical History / Comment(s): skin cancer, at age 93 from old age General Exam General appearance: alert, in no apparent distress Head exam: Present: normocephalic, normal inspection. Absent: atraumatic (Scalp hematoma) Eye exam: Present: normal appearance, PERRL, EOMI. Absent: scleral icterus, conjunctival injection, periorbital swelling ENT exam: Present: normal exam, mucous membranes moist Neck exam: Present: normal inspection. Absent: tenderness, meningismus, lymphadenopathy Respiratory exam: Present: normal lung sounds bilaterally. Absent: respiratory distress, wheezes, rales, rhonchi, stridor Cardiovascular Exam: Present: regular rate, normal rhythm, normal heart sounds. Absent: systolic murmur, diastolic murmur, rubs, gallop, clicks GI/Abdominal exam: Present: soft, normal bowel sounds. Absent: distended, tenderness, guarding, rebound, rigid Extremities exam: Present: normal inspection, full ROM, normal capillary refill. Absent: tenderness, pedal edema, joint swelling, calf tenderness Back exam: Present: normal inspection Neurological exam: Present: alert, oriented X3, CN II-XII intact Psychiatric exam: Present: normal affect, normal mood Skin exam: Present: warm, dry, intact, normal color. Absent: rash Course Vital Signs 02/16/22 02/16/22 02/16/22 01:42 08:14 08:38 Temperature 97.2 F L 98.1 F Pulse Rate 65 60 Respiratory 18 18 Rate Blood Pressure 151/75 130/71 O2 Sat by Pulse 99 99 Oximetry - Reevaluation(s) Reevaluation #1: 02/16/22 Medical record is reviewed Reevaluation #2: 02/16/22 Patient has no real change in symptoms here in the ER Reevaluation #3: 02/16/22 Patient informed of results and questions are answered Reevaluation #4: Was pt. sent in by a medical professional or institution? @ -no Did you speak to anyone other than the patient for history? @ -EMS Did you review nursing and triage notes? @ -no Were old charts reviewed? @ -no Differential Diagnosis? @ -agree EKG interpreted by me (3pts min.)? @ -[none] X-rays interpreted by me (1pt min.)? @ -[none] CT interpreted by me (1pt min.)? @ -[none] U/S interpreted by me (1pt. min.)? @ -[none] What testing was considered but not performed? (CT, X-rays, U/S, labs)? Why? @ no What meds were considered but not given? Why? @ -[none] Did you discuss the management of the patient with other professionals? @ -no Did you reconcile home meds? @ -[none] Was smoking cessation discussed for >3mins.? @ -[none] Was critical care preformed (if so, how long)? @ -[none] Were there social determinants of health that impacted care today? How? (Homele ssness, low income, unemployed, alcoholism, drug addiction, transportation, low edu. Level, literacy, decrease access to med. care, long term, rehab)? @ -no Was there de-escalation of care discussed even if they declined? (Discuss DNR or withdrawal of care, Hospice)? @ -no What co-morbidities impacted this encounter? (DM, HTN, Smoking, COPD, CAD, Cancer, CVA, Hep., AIDS, mental health diagnosis, sleep apnea, morbid obesity)? @ -no Was patient admitted / discharged? @ -[hospital course] Undiagnosed new problem with uncertain prognosis? @ -[none] Drug Therapy requiring intensive monitoring for toxicity (Heparin, Nitro, Insulin, Cardizem)? @ -[none] Were any procedures done? @ -[none] Diagnosis/symptom? @ -[default] Acute, or Chronic, or Acute on Chronic? @ -[default] Uncomplicated (without systemic symptoms) or Complicated (systemic symptoms)? @ -[default] Side effects of treatment? @ -[none] Exacerbation, Progression, or Severe Exacerbation] @ -[no] Poses a threat to life or bodily function? @ -[no] Medical Decision Making - Medical Decision Making 80-year-old female to the emergency department with mechanical fall does suffer scalp hematoma no other acute injury noted patient can be discharged home - Lab Data Result diagrams: 02/16/22 02:42 02/16/22 02:42 Lab Results 02/16/22 02/16/22 02/16/22 Range/Units 02:42 02:42 02:42 WBC 6.1 (3.8-10.6) k/uL RBC 3.34 L (3.80-5.40) m/uL Hgb 10.5 L (11.4-16.0) gm/dL Hct 31.0 L (34.0-46.0) % MCV 92.7 (80.0-100.0) fL MCH 31.5 (25.0-35.0) pg MCHC 33.9 (31.0-37.0) g/dL RDW 13.2 (11.5-15.5) % Plt Count 202 (150-450) k/uL MPV 7.6 Neutrophils % 57 % Lymphocytes % 30 % Monocytes % 7 % Eosinophils % 3 % Basophils % 0 % Neutrophils # 3.5 (1.3-7.7) k/uL Lymphocytes # 1.8 (1.0-4.8) k/uL Monocytes # 0.4 (0-1.0) k/uL Eosinophils # 0.2 (0-0.7) k/uL Basophils # 0.0 (0-0.2) k/uL Hypochromasia Slight PT 10.5 (9.0-12.0) sec INR 1.0 (<1.2) APTT 25.3 (22.0-30.0) sec Sodium 130 L (137-145) mmol/L Potassium 4.4 (3.5-5.1) mmol/L Chloride 101 (98-107) mmol/L Carbon Dioxide 26 (22-30) mmol/L Anion Gap 3 mmol/L BUN 18 H (7-17) mg/dL Creatinine 0.65 (0.52-1.04) mg/dL Est GFR (CKD-EPI)AfAm >90 (>60 ml/min/1.73 sqM) Est GFR (CKD-EPI)NonAf 84 (>60 ml/min/1.73 sqM) Glucose 96 (74-99) mg/dL Calcium 8.7 (8.4-10.2) mg/dL Phosphorus 3.6 (2.5-4.5) mg/dL Magnesium 1.9 (1.6-2.3) mg/dL Total Bilirubin 0.4 (0.2-1.3) mg/dL AST 27 (14-36) U/L ALT 16 (4-34) U/L Alkaline Phosphatase 61 (38-126) U/L Troponin I (0.000-0.034) ng/mL NT-Pro-B Natriuret Pep pg/mL Total Protein 6.0 L (6.3-8.2) g/dL Albumin 3.4 L (3.5-5.0) g/dL 02/16/22 02/16/22 Range/Units 02:42 02:42 WBC (3.8-10.6) k/uL RBC (3.80-5.40) m/uL Hgb (11.4-16.0) gm/dL Hct (34.0-46.0) % MCV (80.0-100.0) fL MCH (25.0-35.0) pg MCHC (31.0-37.0) g/dL RDW (11.5-15.5) % Plt Count (150-450) k/uL MPV Neutrophils % % Lymphocytes % % Monocytes % % Eosinophils % % Basophils % % Neutrophils # (1.3-7.7) k/uL Lymphocytes # (1.0-4.8) k/uL Monocytes # (0-1.0) k/uL Eosinophils # (0-0.7) k/uL Basophils # (0-0.2) k/uL Hypochromasia PT (9.0-12.0) sec INR (<1.2) APTT (22.0-30.0) sec Sodium (137-145) mmol/L Potassium (3.5-5.1) mmol/L Chloride (98-107) mmol/L Carbon Dioxide (22-30) mmol/L Anion Gap mmol/L BUN (7-17) mg/dL Creatinine (0.52-1.04) mg/dL Est GFR (CKD-EPI)AfAm (>60 ml/min/1.73 sqM) Est GFR (CKD-EPI)NonAf (>60 ml/min/1.73 sqM) Glucose (74-99) mg/dL Calcium (8.4-10.2) mg/dL Phosphorus (2.5-4.5) mg/dL Magnesium (1.6-2.3) mg/dL Total Bilirubin (0.2-1.3) mg/dL AST (14-36) U/L ALT (4-34) U/L Alkaline Phosphatase (38-126) U/L Troponin I <0.012 (0.000-0.034) ng/mL NT-Pro-B Natriuret Pep 1250 pg/mL Total Protein (6.3-8.2) g/dL Albumin (3.5-5.0) g/dL - EKG Data -: EKG Interpreted by Me (EKG sinus 62 TX 188 QRS 96 QTc 410) - Radiology Data Radiology results: report reviewed (CT brain C-spine chest and pelvis x-ray are negative for genetic injury), image reviewed Disposition Clinical Impression: Dementia, Facial hematoma, Scalp contusion, Fall Disposition: HOME SELF-CARE Condition: Good Instructions (If sedation given, give patient instructions): Fall Prevention for Older Adults (ED) Is patient prescribed a controlled substance at d/c from ED?: No Referrals: Rudi oHpe DO [Primary Care Provider] - 1-2 days Time of Disposition: 03:35
[2022-02-16 01:45] VITALS: RESP 18
--- NOTE | 2022-02-16 02:19 | CT ---
EXAMINATION TYPE: CT brain alvaro veloz DATE OF EXAM: 02/16/2022 COMPARISON: 01/27/2022 HISTORY: Fall CT DLP: 1263.9 mGycm Automated exposure control for dose reduction was used. There is cerebral cortical atrophy. There is no mass effect or midline shift. No sign of intracranial hemorrhage. The calvarium is intact. There is patchy hypodensity in the periventricular white matter . There is right lateral periorbital scalp soft tissue swelling. There is normal alignment of the vertebra. There is C4-5 minimal subluxation. There is degenerative d isc space narrowing from C4 to C7 with spurring of the endplates. There is hypertrophic multilevel ce rvical facet arthropathy. IMPRESSION: Spondylotic changes in the mid and lower cervical spine. No change. Cerebral atrophy and chronic small vessel ischemia. No acute intracranial abnormality.
--- NOTE | 2022-02-16 02:20 | XR ---
EXAMINATION TYPE: XR pelvis AP view DATE OF EXAM: 02/16/2022 COMPARISON: 01/27/2022 HISTORY: Pain TECHNIQUE: Single view FINDINGS: There is deformity of the left pubic rami related to old fractures without change. There is bilateral hip prosthesis. Sacroiliac joints are intact. IMPRESSION: Left pubic rami fractures without change in position compared to old exam. No acute fract ure seen.
--- NOTE | 2022-02-16 02:22 | XR ---
EXAMINATION TYPE: XR chest 1V DATE OF EXAM: 02/16/2022 COMPARISON: 01/21/2022 HISTORY: Fall. Pain TECHNIQUE: Single view FINDINGS: There is no heart failure nor confluent pneumonic infiltrate. Costophrenic angles are clear . There is coarsening of the interstitial markings. IMPRESSION: Minimal fibrotic changes. No acute lung disease. No adverse change.
[2022-02-16] MEDS ORDERED: SODIUM CHLORIDE 0.9% 1,000 ML IV STA (02:30)
[2022-02-16 03:02] LABS: Basophils % (A) 0 %; Eosinophils # (A) 0.2 k/uL (0-0.7); Eosinophils % (A) 3 %; HGB 10.5 gm/dL (11.4-16.0); Hypochromasia Slight; Lymphocytes # (A) 1.8 k/uL (1.0-4.8); Lymphocytes % (A) 30 %; MCH 31.5 pg (25.0-35.0); MCHC 33.9 g/dL (31.0-37.0); MCV 92.7 fL (80.0-100.0); Mean Platelet Volume 7.6; Monocytes # (A) 0.4 k/uL (0-1.0); Monocytes % (A) 7 %; Neutrophils # (A) 3.5 k/uL (1.3-7.7); Neutrophils % (A) 57 %; Platelet Count 202 k/uL (150-450); RBC 3.34 m/uL (3.80-5.40); RDW 13.2 % (11.5-15.5); WBC 6.1 k/uL (3.8-10.6)
[2022-02-16 03:13] LABS: ALT 16 U/L (4-34); AST 27 U/L (14-36); African American GFR (CKD) >90 (>60 ml/min/1.73 sqM); Albumin 3.4 g/dL (3.5-5.0); Alkaline Phosphatase 61 U/L (38-126); Anion Gap 3 mmol/L; Blood Urea Nitrogen 18 mg/dL (7-17); Calcium 8.7 mg/dL (8.4-10.2); Carbon Dioxide 26 mmol/L (22-30); Chloride 101 mmol/L (98-107); Glucose 96 mg/dL (74-99); Magnesium 1.9 mg/dL (1.6-2.3); Non-African American GFR(CKD) 84 (>60 ml/min/1.73 sqM); Phosphorus 3.6 mg/dL (2.5-4.5); Potassium 4.4 mmol/L (3.5-5.1); Sodium 130 mmol/L (137-145); Total Bilirubin 0.4 mg/dL (0.2-1.3)
[2022-02-16 03:29] LABS: Partial Thromboplastin Time 25.3 sec (22.0-30.0); Prothrombin Time 10.5 sec (9.0-12.0)
[2022-02-16 08:16] VITALS: BP 130/71; PULSE 60
[2022-02-16 08:52] VITALS: TEMP 98.1
== END 2022-02-16 08:40 | disposition home or self-care (01) ==
LOC: EC 01:34
DX: S00.03XA Contusion of scalp, initial encounter (principal); S00.83XA Contusion of other part of head, initial encounter; F03.90 Unspecified dementia, unspecified severity, without behavioral disturbance, psychotic disturbance, mood disturbance, and anxiety; Z86.73 Personal history of transient ischemic attack (TIA), and cerebral infarction without residual deficits; E07.9 Disorder of thyroid, unspecified; F17.200 Nicotine dependence, unspecified, uncomplicated; Z88.1 Allergy status to other antibiotic agents; Z88.8 Allergy status to other drugs, medicaments and biological substances; Z79.82 Long term (current) use of aspirin; Z79.890 Hormone replacement therapy; W01.0XXA Fall on same level from slipping, tripping and stumbling without subsequent striking against object, initial encounter; Y92.009 Unspecified place in unspecified non-institutional (private) residence as the place of occurrence of the external cause
CPT/HCPCS: 36415; 70450; 71045; 72125; 72170; 80053; 83735; 83880; 84100; 84484; 85025; 85610; 85730; 96360; 99285

== ENCOUNTER 2022-05-26 18:40 | Inpatient (IN) | payer MEDICARE ==
[2022-05-26] MEDS ORDERED: SODIUM CHLORIDE 0.9% 1,000 ML IV ONE (19:15)
[2022-05-26] MEDS ORDERED: MORPHINE SULFATE 2 MG/ML SYRINGE IV STA (19:15)
--- NOTE | 2022-05-26 19:22 | ED ---
General Adult HPI - General Chief complaint: Fall Stated complaint: Fall Time Seen by Provider: 05/26/22 18:59 Source: patient, family (I did speak with the son who is an ER physician who provided additional history including history of presentation and patient's past history), EMS, RN notes reviewed Mode of arrival: EMS Limitations: no limitations - History of Present Illness Initial comments: Patient is a pleasant 81-year-old female presenting to the emergency Department with right hip discomfort. Patient does have history of previous right right hip arthroplasty. Patient did have a fall today and had difficulty getting up and walking. did try to assist however patient was uncomfortable. Patient did have Tylenol and Motrin at home. No head injury or loss of consciousness. I did speak with the patient's son who is near physician who would like x-rays done. Patient had also been complaining of some back discomfort from a fall a few days ago. Patient does have history of rods in her back from surgery several years ago. Patient states she feels fine at this time and has no complaints. Patient is requesting discharge home but agreeable to further evaluation. Son states patient does have history of dementia and is at her baseline. - Related Data Home Medications Medication Instructions Recorded Confirmed Multivit with Calcium,Iron,Min 1 tab PO DAILY 10/22/17 01/27/22 [Women's Multivitamin] Levothyroxine Sodium [Synthroid] 88 mcg PO DAILY@0600 11/12/19 01/27/22 Aspirin EC [Ecotrin Low Dose] 81 mg PO HS 11/03/20 01/27/22 Cholecalciferol [Vitamin D3 (25 50 mcg PO DAILY 11/03/20 01/27/22 Mcg = 1000 Iu)] Enoxaparin [Lovenox] 40 mg SQ HS 01/27/22 01/27/22 HYDROcodone/APAP 5-325MG [[place] 1 tab PO Q6H PRN 01/27/22 01/27/22 5-325] Ipratropium-Albuterol Nebulize 3 ml INHALATION RT-Q8H 01/27/22 01/27/22 [Duoneb 0.5 mg-3 mg/3 ml Soln] Nicotine 21Mg/24Hr Patch [Habitrol] 1 patch TRANSDERM DAILY@0600 01/27/22 01/27/22 Sennosides/Docusate Sodium 2 tab PO DAILY PRN 01/27/22 01/27/22 [Senna-S 8.6-50 mg Tablet] Previous Rx's Medication Instructions Recorded Atorvastatin [Lipitor] 20 mg PO HS #30 tab 11/04/20 Ferrous Sulfate [Iron (65 MG 325 mg PO BID #60 tab 01/26/22 Elemental)] Allergies Allergy/AdvReac Type Severity Reaction Status Date / Time azithromycin AdvReac Nausea & Verified 05/26/22 18:59 [From Zithromax Z-Gomez] Vomiting INDOOR ENVIRONMENTAL AdvReac Itching Uncoded 05/26/22 18:59 ALLERGIES Review of Systems ROS Statement: Those systems with pertinent positive or pertinent negative responses have been documented in the HPI. ROS Other: All systems not noted in ROS Statement are negative. Constitutional: Denies: fever Eyes: Denies: eye pain ENT: Denies: ear pain Respiratory: Denies: cough Cardiovascular: Denies: chest pain Endocrine: Denies: fatigue Gastrointestinal: Denies: abdominal pain Genitourinary: Denies: dysuria Musculoskeletal: Reports: as per HPI Past Medical History Past Medical History: CVA/TIA, Memory Impairment, Thyroid Disorder Additional Past Medical History / Comment(s): chronic back pain, had stroke during back surgery-affected memory; balance wobbly since hip surgery Last Myocardial Infarction Date:: 2014 History of Any Multi-Drug Resistant Organisms: None Reported Past Surgical History: Appendectomy, Back Surgery, Orthopedic Surgery, Tonsillectomy Additional Past Surgical History / Comment(s): shoulder skin ca, knee surgery to left, ORIF left hip 2015, loop recorder insertion Past Anesthesia/Blood Transfusion Reactions: Postoperative Nausea & Vomiting (PONV) Additional Past Anesthesia/Blood Transfusion Reaction / Comment(s): claustrophobia, trouble waking up Past Psychological History: No Psychological Hx Reported Smoking Status: Current every day smoker Past Alcohol Use History: Daily Past Drug Use History: None Reported - Past Family History Mother Family Medical History: Renal Disease Father Family Medical History: Cancer Additional Family Medical History / Comment(s): skin cancer, at age 93 from old age General Exam Limitations: no limitations General appearance: alert, in no apparent distress Head exam: Present: atraumatic Eye exam: Present: normal appearance, PERRL ENT exam: Present: normal oropharynx Neck exam: Present: normal inspection. Absent: tenderness Respiratory exam: Present: normal lung sounds bilaterally Cardiovascular Exam: Present: regular rate, normal rhythm Expanded Peripheral pulses: 2+: Posterior Tibialis (R), Posterior Tibialis (L), Dorsalis Pedis (R), Dorsalis Pedis (L) GI/Abdominal exam: Present: soft. Absent: tenderness Extremities exam: Present: tenderness (Mild tenderness right suprapubic region) Back exam: Present: normal inspection Neurological exam: Present: alert. Absent: motor sensory deficit Expanded Patient oriented to: Present: person, place. Absent: time Eye Response: (4) open spontaneously Motor Response: (6) obeys commands Verbal Response: (4) confused conversation Psychiatric exam: Present: normal affect, normal mood Skin exam: Present: normal color Course Vital Signs 05/26/22 18:55 Temperature 98.1 F Pulse Rate 88 Respiratory 18 Rate Blood Pressure 161/74 O2 Sat by Pulse 96 Oximetry - Reevaluation(s) Reevaluation #1: 05/26/22 20:55 I did speak again with the son, Ivory who would like to be contacted if necessary at any time [phone] Medical Decision Making - Medical Decision Making Was pt. sent in by a medical professional or institution (, PA, LOST CHARGE CARD CLERK, urgent care, hospital, or care home...) When possible be specific @ -No Did you speak to anyone other than the patient for history (EMS, parent, family, police, friend...)? What history was obtained from this source @ -I did speak with the patient's son who did help provide history as patient has dementia Did you review nursing and triage notes (agree or disagree)? Why? @ -I reviewed and agree with nursing and triage notes Were old charts reviewed (outside hosp., previous admission, EMS record, old EKG, old radiological studies, urgent care reports/EKG's, care home records)? Report findings @ -And previous admission reviewed Differential Diagnosis (chest pain, altered mental status, abdominal pain women, abdominal pain men, vaginal bleeding, weakness, fever, dyspnea, syncope, h eadache, dizziness, GI bleed, back pain, seizure, CVA, palpatations, mental health)? @ -not applicable EKG interpreted by me (3pts min.). @ -As above X-rays interpreted by me (1pt min.). @ -Lumbar x-ray shows extensive postsurgical changes. X-ray right hip and pelvis shows postsurgical change without evidence of acute fracture. Apparent old left-sided pubic rami fracture CT interpreted by me (1pt min.). @ -None done U/S interpreted by me (1pt. min.). @ -None done What testing was considered but not performed or refused? (CT, X-rays, U/S, labs)? Why? @ -None What meds were considered but not given or refused? Why? @ -None Did you discuss the management of the patient with other professionals (professionals i.e. DrCheco, PA, LOST CHARGE CARD CLERK, lab, RT, psych nurse, social research assistant, automotive shop foreman, teacher, prison officer, case finisher)? Give summary @ -Case discussed with Dr. Harper, who will admit coming Dr. Hope Was smoking cessation discussed for >3mins.? @ -No Was critical care preformed (if so, how long)? @ -No Were there social determinants of health that impacted care today? How? (Homelessness, low income, unemployed, alcoholism, drug addiction, transportation, low edu. Level, literacy, decrease access to med. care, intermediate, rehab)? @ -No Was there de-escalation of care discussed even if they declined (Discuss DNR or withdrawal of care, Hospice)? DNR status @ -No What co-morbidities impacted this encounter? (DM, HTN, Smoking, COPD, CAD, Can cer, CVA, ARF, Chemo, Hep., AIDS, mental health diagnosis, sleep apnea, morbid obesity)? @ -None Was patient admitted / discharged? Hospital course, mention meds given and route, prescriptions, significant lab abnormalities, going to OR and other pertinent info. @ -Patient reevaluated and resting comfortably in bed. Patient is unable to ge t out of bed and walk at all. Discussion had again with son and patient will be admitted. Patient may need rehab. Patient updated. Undiagnosed new problem with uncertain prognosis? @ -No Drug Therapy requiring intensive monitoring for toxicity (Heparin, Nitro, Insulin, Cardizem)? @ -No Were any procedures done? @ -No Diagnosis/symptom? @ -Hyponatremia Acute, or Chronic, or Acute on Chronic? @ -Acute Uncomplicated (without systemic symptoms) or Complicated (systemic symptoms)? @ -default Side effects of treatment? @ -No Exacerbation, Progression, or Severe Exacerbation? @ -No Poses a threat to life or bodily function? How? (Chest pain, USA, ME, pneumonia, PE, COPD, DKA, ARF, appy, cholecystitis, CVA, Diverticulitis, Homicidal, Suicidal, threat to staff... and all critical care pts) @ -No - Lab Data Result diagrams: 05/26/22 19:20 05/26/22 19:20 Lab Results 05/26/22 05/26/22 Range/Units 19:20 19:20 WBC 10.8 H (3.8-10.6) k/uL RBC 4.87 (3.80-5.40) m/uL Hgb 13.6 (11.4-16.0) gm/dL Hct 40.8 (34.0-46.0) % MCV 83.7 (80.0-100.0) fL MCH 28.0 (25.0-35.0) pg MCHC 33.4 (31.0-37.0) g/dL RDW 15.2 (11.5-15.5) % Plt Count 173 (150-450) k/uL MPV 7.0 Neutrophils % 77 % Lymphocytes % 15 % Monocytes % 5 % Eosinophils % 1 % Basophils % 0 % Neutrophils # 8.3 H (1.3-7.7) k/uL Lymphocytes # 1.7 (1.0-4.8) k/uL Monocytes # 0.5 (0-1.0) k/uL Eosinophils # 0.2 (0-0.7) k/uL Basophils # 0.0 (0-0.2) k/uL Sodium 127 L (137-145) mmol/L Potassium 4.5 (3.5-5.1) mmol/L Chloride 96 L (98-107) mmol/L Carbon Dioxide 25 (22-30) mmol/L Anion Gap 6 mmol/L BUN 17 (7-17) mg/dL Creatinine 0.61 (0.52-1.04) mg/dL Est GFR (CKD-EPI)AfAm >90 (>60 ml/min/1.73 sqM) Est GFR (CKD-EPI)NonAf 85 (>60 ml/min/1.73 sqM) Glucose 95 (74-99) mg/dL Calcium 8.7 (8.4-10.2) mg/dL Total Bilirubin 1.0 (0.2-1.3) mg/dL AST 44 H (14-36) U/L ALT 18 (4-34) U/L Alkaline Phosphatase 71 (38-126) U/L Total Protein 6.2 L (6.3-8.2) g/dL Albumin 3.6 (3.5-5.0) g/dL Disposition Clinical Impression: Hyponatremia Disposition: ADMITTED IP TO THIS HOSP Is patient prescribed a controlled substance at d/c from ED?: No Referrals: None,Stated [REFERRING] - 1-2 days Time of Disposition: 20:58
[2022-05-26 19:38] LABS: Basophils % (A) 0 %; Eosinophils # (A) 0.2 k/uL (0-0.7); Eosinophils % (A) 1 %; HCT 40.8 % (34.0-46.0); HGB 13.6 gm/dL (11.4-16.0); Lymphocytes # (A) 1.7 k/uL (1.0-4.8); Lymphocytes % (A) 15 %; MCHC 33.4 g/dL (31.0-37.0); MCV 83.7 fL (80.0-100.0); Monocytes # (A) 0.5 k/uL (0-1.0); Monocytes % (A) 5 %; Neutrophils # (A) 8.3 k/uL (1.3-7.7); Neutrophils % (A) 77 %; Platelet Count 173 k/uL (150-450); RBC 4.87 m/uL (3.80-5.40); RDW 15.2 % (11.5-15.5); WBC 10.8 k/uL (3.8-10.6)
[2022-05-26 19:55] LABS: ALT 18 U/L (4-34); AST 44 U/L (14-36); African American GFR (CKD) >90 (>60 ml/min/1.73 sqM); Albumin 3.6 g/dL (3.5-5.0); Alkaline Phosphatase 71 U/L (38-126); Anion Gap 6 mmol/L; Blood Urea Nitrogen 17 mg/dL (7-17); Calcium 8.7 mg/dL (8.4-10.2); Carbon Dioxide 25 mmol/L (22-30); Chloride 96 mmol/L (98-107); Glucose 95 mg/dL (74-99); Non-African American GFR(CKD) 85 (>60 ml/min/1.73 sqM); Sodium 127 mmol/L (137-145); Total Protein 6.2 g/dL (6.3-8.2)
[2022-05-26 20:05] LABS: Potassium 4.5 mmol/L (3.5-5.1)
--- NOTE | 2022-05-26 20:22 | XR ---
EXAMINATION TYPE: XR lumbar spine 2 or 3V DATE OF EXAM: 05/26/2022 8:11 PM INDICATION: Patient age:Female; 81 years old; Reason for study: fall; COMPARISON: None TECHNIQUE: Frontal and lateral views of the spine. FINDINGS: Extensive surgical changes to the visualized spine. Hardware appears intact. No obvious fra cture of hardware or osseous structure. Atherosclerosis of the arterial vasculature. IMPRESSION: Extensive postsurgical changes without evidence for hardware fracture.
--- NOTE | 2022-05-26 20:25 | XR ---
EXAMINATION TYPE: XR Hip RT and AP Pelvis DATE OF EXAM: 05/26/2022 8:11 PM INDICATION: Patient age:Female; 81 years old; Reason for study: fall; COMPARISON: 01/27/2022 TECHNIQUE: The right hip was examined in the frontal and lateral projections and a AP pelvis. FINDINGS: Bilateral hip arthroplasty changes. Hardware appears intact. Remote left inferior pubic loyda us fracture. The right hip appears intact without evidence of fracture. Visualized lower spine demons trates fixation hardware which appears intact. Atherosclerosis of the arterial vasculature. IMPRESSION: 1. No evidence for acute fracture. 2. Remote left inferior pubic ramus fracture. 3. Bilateral hip arthroplasty changes with hardware intact.
[2022-05-26] MEDS ORDERED: NALOXONE 0.4 MG/ML 1 ML VIAL IV PRN (20:59)
[2022-05-26] MEDS ORDERED: MORPHINE SULFATE 4 MG/ML SYRINGE IV PRN (21:02)
[2022-05-26] MEDS ORDERED: ACETAMINOPHEN TAB 325 MG TAB PO PRN (21:02)
[2022-05-26] MEDS ORDERED: IBUPROFEN 400 MG TAB PO PRN (21:02)
[2022-05-26] MEDS: SODIUM CHLORIDE 0.9% 1,000 ML IV SCH (22:24)
[2022-05-27 02:05] LABS: T4, Free (Free Thyroxine) 1.45 ng/dL (0.78-2.19)
[2022-05-27] MEDS: LEVOTHYROXINE 88 MCG TAB PO SCH (05:41)
[2022-05-27] MEDS: traMADol 50 MG TAB PO PRN ×2 (06:18→16:48)
[2022-05-27] MEDS: SODIUM CHLORIDE 0.9% 1,000 ML IV SCH (10:22)
--- NOTE | 2022-05-27 11:09 | P.CNOR ---
History of Present Illness - [facility] Consult date: 05/27/22 Consult reason: other (pelvic pain) History of present illness: Patient is an 81-year-old female who was brought to [facility] for evaluation of right hip/pelvic pain. Apparently the patient had a fall yesterday, her was initially there to help manage this. Patient continued discomfort so he did bring into the hospital for further evaluation. Multiple imaging and lab tests were obtained. Patient was admitted under internal medicine for further evaluation. Our orthopedic was consulted with regards to the right hip/pelvic pain Patient is known to our orthopedic service, Dr. Mccauley hemiarthroplasty on the right hip due to a femoral neck fracture back in January 2022. Patient was initially seen once postoperative setting and that was her last appointment. When reviewing patient's previous notes, she does have a history. Patient has a previous fall in November 04 which resulted in left sided superior and inferior pubic rami fractures, the other orthopedic service in town to evaluate the patient and recommended conservative measures. On review the images, she has a left hip hemiarthroplasty, not sure on the exact date of that. She also has significant instrumentation throughout the thoracic and lumbar spine from a previous surgery. At bedside today, the patient is resting comfortably, she has pleasantly confused. She states that most of discomfort is located in the buttock/pelvic region on the right-hand side. She denies left-sided lower extremity pain. She denies any bilateral upper extremity pain. She denies any new onset of thoracic or lumbar pain at this time. She denies loss of bowel or bladder function at this time. She denies any numbness or tingling in the bilateral upper or lower extremities. Review of Systems Constitutional: Reports as per HPI Past Medical History Past Medical History: CVA/TIA, Memory Impairment, Thyroid Disorder Additional Past Medical History / Comment(s): chronic back pain, had stroke during back surgery-affected memory; balance wobbly since hip surgery Last Myocardial Infarction Date:: 2014 History of Any Multi-Drug Resistant Organisms: None Reported Past Surgical History: Appendectomy, Back Surgery, Orthopedic Surgery, Tonsillectomy Additional Past Surgical History / Comment(s): shoulder skin ca, knee surgery to left, ORIF left hip 2015, loop recorder insertion Past Anesthesia/Blood Transfusion Reactions: Postoperative Nausea & Vomiting (PONV) Additional Past Anesthesia/Blood Transfusion Reaction / Comm: claustrophobia, trouble waking up Past Psychological History: No Psychological Hx Reported Smoking Status: Current every day smoker Past Alcohol Use History: Daily Past Drug Use History: None Reported - Past Family History Mother Family Medical History: Renal Disease Father Family Medical History: Cancer Additional Family Medical History / Comment(s): skin cancer, at age 93 from old age Medications and Allergies Home Medications Medication Instructions Recorded Confirmed Type Multivit with Calcium,Iron,Min 1 tab PO DAILY 10/22/17 05/26/22 History [Women's Multivitamin] Aspirin EC [Ecotrin Low Dose] 81 mg PO HS 11/03/20 05/26/22 History Cholecalciferol [Vitamin D3 (25 50 mcg PO DAILY 11/03/20 05/26/22 History Mcg = 1000 Iu)] Atorvastatin [Lipitor] 20 mg PO HS #30 tab 11/04/20 05/26/22 Rx Levothyroxine Sodium [Synthroid] 75 mcg PO DAILY 05/26/22 05/26/22 History Allergies Allergy/AdvReac Type Severity Reaction Status Date / Time azithromycin AdvReac Nausea & Verified 05/26/22 21:41 [From Zithromax Z-Gomez] Vomiting INDOOR ENVIRONMENTAL AdvReac Itching Uncoded 05/26/22 18:59 ALLERGIES Physical Examination Gen: AOx3, NAD VSS stable at this time Integument: No obvious open lesions or sores are visualized throughout the thoracic or lumbar spine. There is no obvious open lesions present throughout the right lower extremity. well-healed incision on the posterior lateral aspect of the right lower extremity. well-healed incision noted on the thoracic and lumbar spine region Palpation: No obvious tenderness appreciated to the paraspinal region of the thoracic or lumbar spine. No significant tenderness with palpation present throughout the right lower extremity, this to include the greater trochanteric region, upper thigh, knee, foot or ankle ROM: Full range of motion in all major muscle groups of the bilateral upper extremities, no focal deficits Passive range of motion of the left lower extremity reproduces no pain, negative straight leg raise, no pain with logroll maneuver. Plantar flexion, dorsiflexion, EHL, FHL are intact on the left-hand side. She is unable to straight leg raise with the right lower extremity due to pain, passive external rotation along with hip flexion does reproduce pain. Extension and flexion are intact at the knee, plantarflexion, dorsiflexion, FHL are intact. Sensory Exam: Senory exam to light touch is intact C5-T1 Senosry exam to light touch is intact L2-S1 Motor: 4+/5 strength appreciated in the bilateral upper extremities with shoulder eleva tion, shoulder abduction, elbow extension, elbow flexion, wrist and wrist flexion, senior information security consultant 4/5 strength appreciated in the bilateral lower extremities with hip flexion, extension, knee flexion, plantar flexion, dorsiflexion, EHL, FHL. Hip flexion was not assessed in the right lower extremity due to pain Reflexes: 2/4 in all UE and LE negative Abe's, clonus, Babinski bilaterally Results - Labs Labs: Abnormal Lab Results - Last 24 Hours (Table) 05/26/22 05/26/22 Range/Units 19:20 19:20 WBC 10.8 H (3.8-10.6) k/uL Neutrophils # 8.3 H (1.3-7.7) k/uL Sodium 127 L (137-145) mmol/L Chloride 96 L (98-107) mmol/L AST 44 H (14-36) U/L Total Protein 6.2 L (6.3-8.2) g/dL H & H 05/26/22 Range/Units 19:20 Hgb 13.6 (11.4-16.0) gm/dL Hct 40.8 (34.0-46.0) % Result Diagrams: 05/26/22 19:20 05/26/22 19:20 Assessment and Plan Assessment: Right hip/pelvic pain Right Inferior pubic rami fracture Status post recent fall History of right hip hemiarthroplasty, stable appearing components History of left hip hemiarthroplasty, stable appearing components History of thoracic/lumbar surgical procedures Multiple medical comorbidities Plan: Imaging: X-rays reviewed of the AP pelvis along with dedicated right hip x-rays. Images demonstrate stable appearing components of both right and left hemiarthroplasty. No obvious dislocations were present. evidence of previous left superior and inferior pubic rami fractures appear well. Images do demonstrate a right inferior pubic rami fracutre Plan: I was able to discuss the case, this including physical exam findings and imaging studies my attending Dr. Mccauley. No orthopedic surgical intervention is recommended at this time. Recommending conservative measures, this will include pain control, physical therapy evaluation and weightbearing with the use of a walker DVT prophylaxis per primary medical service PT/OT evaluation Weight-bear as tolerated, utilize walker all times Other adjunct faculty for medical terminology recommendations appreciated We will continue to follow patient during inpatient Time with Patient: Less than 30
[2022-05-27] MEDS ORDERED: CALCIUM CARBONATE 500 MG CHEWABLE PO PRN (12:24)
[2022-05-27] MEDS ORDERED: LACTULOSE 20 GM/30 ML CUP PO PRN (12:24)
[2022-05-27] MEDS ORDERED: MELATONIN 3 MG TABLET PO PRN (12:24)
[2022-05-27] MEDS ORDERED: ONDANSETRON 4 MG/2 ML VIAL IVP PRN (12:24)
[2022-05-27] MEDS: CHOLECALCIFEROL 25 MCG (1000 IU) TABLET PO SCH ×2 (12:54→12:55)
[2022-05-27] MEDS: MULTIVITAMINS, THERA 1 EACH TAB PO SCH (13:01)
--- NOTE | 2022-05-27 14:12 | CT ---
EXAMINATION TYPE: CT hip RT wo con CT DLP: 499.2 mGycm, Automated exposure control for dose reduction was used. DATE OF EXAM: 05/27/2022 1:48 PM COMPARISON: . Extremity radiograph from 1123 CLINICAL INDICATION:Female, 81 years old with history of poss occult fracture, Right hip pain TECHNIQUE: Axial images were obtained of the right hip . Additional coronal and sagittal reformatted images and soft tissue and bone window were obtained for review. 3-D reconstruction was created on a separate workstation. Contrast used: None Oral contrast used: None FINDINGS: Postsurgical changes of the lumbar spine are with partially visualized fixation hardware. D isc degeneration changes of the sacroiliac joint right. Severe atherosclerosis of the arterial vascul ature. Hip arthroplasty changes with streak artifact limits evaluation. Remote appearing left superio r and inferior pubic ramus fractures. There is an acute right inferior pubic ramus fracture. There is no displacement visualized. Remainder of the right pelvis osseous structures appears intact. IMPRESSION: 1. Nondisplaced right inferior pubic ramus fracture. 2. Right hip arthroplasty changes. Hardware appears intact. No periprosthetic fracture visualized.
[2022-05-27] MEDS: LORazepam 0.5 MG TAB PO PRN (16:48)
--- NOTE | 2022-05-27 16:50 | P.HPIM ---
History of Present Illness H&P Date: 05/27/22 Chief Complaint: Right hip pain This is a pleasant 81-year-old patient who follows with Dr. Hope. Chronic stable medical conditions include dementia, hypothyroid, chronic low back pain, smoker. Because underlying dementia patient somewhat limited historian but able to an swer questions. Patient presented to ER yesterday evening. Has a prior right hip arthroplasty. Patient forgetful. Patient had a fall and had difficulty getting up. Apparently a neighbor was called. Took a Tylenol or Motrin. Then when patient tried to get up afterwards was noted not able to do so. She also had some back discomfort after falling a few days ago. She's had surgery several years ago. In the ER patient complaining of some pain in the right hip. X-ray was negative for fracture except in the remote left inferior pubic rami. Seen by orthopedics. Otherwise patient's comfortable. Review of systems: GEN.: Tired EYES: None HEENT: Decreased hearing, NECK: None RESPIRATORY: None CARDIOVASCULAR: None GASTROINTESTINAL: None GENITOURINARY: Incontinence MUSCULOSKELETAL: Joint pains including right hip LYMPHATICS: None HEMATOLOGICAL: None PSYCHIATRY: Forgetful] NEUROLOGICAL: Uses a walker Past medical history to include: CVA/TIA, memory impairment, hypothyroid, chronic low back pain, unsteady gait, cognitive impairment, hyponatremia Social history: Smokes less than a pack a day drinks one [place] a day. Smoking since the age of 19. Lives with her . Physical examination: VITAL SIGNS: 98.1, 88, 18, 1 42 x 65, 96% room air upon presentation GENERAL: BMI 20.8, thin built laying in bed , loss of muscle mass, prominent bones EYES: Pupils equal. Conjunctiva normal. HEENT: External appearance of nose and ears normal, oral cavity grossly normal right forehead hematoma with some bruising. NECK: JVD not raised; masses not palpable. HEART: First and second heart sounds are normal; no edema. LUNGS: Respiratory rate normal; diminished breath sounds. ABDOMEN: Soft, nontender, liver spleen not palpable, no masses palpable. PSYCH: She knows she is in the hospital but cannot tell the name, cannot tell the year and the month. MUSCULOSKELETAL:No Clubbing/cyanosis;muscles-grossly intact. Evidence of OA multiple joints. Limited range of motion right hip. Some local tenderness NEUROLOGICAL: Cranial nerves grossly intact; no facial asymmetry, power and sensation grossly intact. LYMPHATICS: No lymph nodes palpable in the axilla and neck INVESTIGATIONS, reviewed in the clinical context: White count 10.8 hemoglobin 10.6 platelets 173 sodium 127 potassium 4.5 creatinine 0.61 TSH 4.3 X-ray lumbar spine: Postsurgical changes without evidence of fracture X-ray hip right: No evidence of acute fracture. Remote left inferior pubic grams fracture. Assessment plan: -Right hip pain following fall. No fracture on x-ray. Patient having trouble moving the right hip.: Right inferior pubic rami fracture Computed tomography scan of the right hip shows nondisplaced right inferior pubic rami fracture. Otherwise hardware intact. No periprosthetic fracture. -Severe cognitive impairment. Late onset Alzheimer's dementia -Hypothyroid Synthroid 88 g -Hyperlipidemia Lipitor 20 mg daily at bedtime -Chronic nicotine dependence, cigarette smoker Nicotine patch -Hyponatremia, chronic Encourage oral intake -Mild protein calorie malnutrition Ensure -Chronic gait dysfunction Fall precautions -Primary osteoarthritis multiple joints including chronic low back pain,. Previous back surgery Tylenol as needed -DO NOT RESUSCITATE I spoke to patient's son was also an ER physician on the phone. Updated. He is looking into hospice. Did ask him to also talk to Dr. Hope patient's PCP. He did call her back afterwards to say he would proceed with the same. Past Medical History Past Medical History: CVA/TIA, Memory Impairment, Thyroid Disorder Additional Past Medical History / Comment(s): chronic back pain, had stroke during back surgery-affected memory; balance wobbly since hip surgery Last Myocardial Infarction Date:: 2014 History of Any Multi-Drug Resistant Organisms: None Reported Past Surgical History: Appendectomy, Back Surgery, Orthopedic Surgery, Tonsillectomy Additional Past Surgical History / Comment(s): shoulder skin ca, knee surgery to left, ORIF left hip 2016, loop recorder insertion Past Anesthesia/Blood Transfusion Reactions: Postoperative Nausea & Vomiting (PONV) Additional Past Anesthesia/Blood Transfusion Reaction / Comment(s): claustrophobia, trouble waking up Past Psychological History: No Psychological Hx Reported Smoking Status: Current every day smoker Past Alcohol Use History: Daily Past Drug Use History: None Reported - Past Family History Mother Family Medical History: Renal Disease Father Family Medical History: Cancer Additional Family Medical History / Comment(s): skin cancer, at age 93 from old age Medications and Allergies Home Medications Medication Instructions Recorded Confirmed Type Multivit with Calcium,Iron,Min 1 tab PO DAILY 10/22/17 05/26/22 History [Women's Multivitamin] Aspirin EC [Ecotrin Low Dose] 81 mg PO HS 11/03/20 05/26/22 History Cholecalciferol [Vitamin D3 (25 50 mcg PO DAILY 11/03/20 05/26/22 History Mcg = 1000 Iu)] Atorvastatin [Lipitor] 20 mg PO HS #30 tab 11/04/20 05/26/22 Rx Levothyroxine Sodium [Synthroid] 75 mcg PO DAILY 05/26/22 05/26/22 History Allergies Allergy/AdvReac Type Severity Reaction Status Date / Time azithromycin AdvReac Nausea & Verified 05/26/22 21:41 [From Zithromax Z-Gomez] Vomiting INDOOR ENVIRONMENTAL AdvReac Itching Uncoded 05/26/22 18:59 ALLERGIES Physical Exam Vitals: Vital Signs Temp Pulse Resp BP Pulse Ox 05/27/22 10:17 61 18 149/68 96 05/27/22 05:00 74 18 157/89 95 05/27/22 00:25 79 17 142/65 96 05/26/22 20:00 82 18 165/79 96 05/26/22 18:55 98.1 F 88 18 161/74 96 Intake and Output 05/26/22 05/27/22 05/27/22 22:59 06:59 14:59 Output Total 700 Balance -700 Output: Urine 700 Other: Weight 56.699 kg Results CBC & Chem 7: 05/26/22 19:20 05/26/22 19:20 Labs: Abnormal Lab Results - Last 24 Hours (Table) 05/26/22 05/26/22 Range/Units 19:20 19:20 WBC 10.8 H (3.8-10.6) k/uL Neutrophils # 8.3 H (1.3-7.7) k/uL Sodium 127 L (137-145) mmol/L Chloride 96 L (98-107) mmol/L AST 44 H (14-36) U/L Total Protein 6.2 L (6.3-8.2) g/dL
[2022-05-27] MEDS ORDERED: ATORVASTATIN 20 MG TAB PO SCH (21:00)
[2022-05-28 01:56] VITALS: TEMP 98.2
[2022-05-28] MEDS: SODIUM CHLORIDE 0.9% 1,000 ML IV SCH (02:13)
[2022-05-28] MEDS: traMADol 50 MG TAB PO PRN ×2 (03:31→11:53)
[2022-05-28] MEDS: LORazepam 0.5 MG TAB PO PRN (03:31)
[2022-05-28] MEDS: LEVOTHYROXINE 88 MCG TAB PO SCH (07:01)
[2022-05-28 07:46] VITALS: BP 150/73; PULSE 69; RESP 16
[2022-05-28] MEDS: CHOLECALCIFEROL 25 MCG (1000 IU) TABLET PO SCH (09:02)
[2022-05-28] MEDS: MULTIVITAMINS, THERA 1 EACH TAB PO SCH (09:02)
[2022-05-28] MEDS ORDERED: LISINOPRIL-HCTZ 10-12.5 MG 1 EACH TAB PO SCH (11:00)
[2022-05-28 11:11] VITALS: BMI 20.7
--- NOTE | 2022-05-29 22:30 | P.DS ---
Providers Date of admission: 05/26/22 21:02 Expected date of discharge: 05/28/22 Attending physician: Eduin Harper Consults: 05/26/22 20:59 Consult Physician Routine Consulting Provider: Adolfo Mccauley Consult Reason/Comments: pelvic pain Do you want consulting provider notified?: Yes Primary care physician: [facility] Hospital Course: Chief Complaint: Right hip pain This is a pleasant 81-year-old patient who follows with Dr. Hope. Chronic stable medical conditions include dementia, hypothyroid, chronic low back pain, smoker. Because underlying dementia patient somewhat limited historian but able to answer questions. Patient presented to ER yesterday evening. Has a prior right hip arthroplasty. Patient forgetful. Patient had a fall and had difficulty getting up. Apparently a neighbor was called. Took a Tylenol or Motrin. Then when patient tried to get up afterwards was noted not able to do so. She also had some back discomfort after falling a few days ago. She's had surgery several years ago. In the ER patient complaining of some pain in the right hip. X-ray was negative for fracture except in the remote left inferior pubic rami. Seen by orthopedics. Otherwise patient's comfortable. May 28: Laying in bed. More comfortable. Computed tomography scan of head negative for fracture. Home arrangement made for hospice. As per the son. Tolerating diet. Past medical history to include: CVA/TIA, memory impairment, hypothyroid, chronic low back pain, unsteady gait, cognitive impairment, hyponatremia Social history: Smokes less than a pack a day drinks one [place] a day. Smoking since the age of 19. Lives with her . Physical examination: VITAL SIGNS: 98.2, 69, 16, 150/73, 95% room air GENERAL: BMI 20.8, thin built laying in bed , loss of muscle mass, prominent bones EYES: Pupils equal. Conjunctiva normal. HEENT: External appearance of nose and ears normal, oral cavity grossly normal right forehead hematoma with some bruising. NECK: JVD not raised; masses not palpable. HEART: First and second heart sounds are normal; no edema. LUNGS: Respiratory rate normal; diminished breath sounds. ABDOMEN: Soft, nontender, liver spleen not palpable, no masses palpable. PSYCH: She knows she is in the hospital but cannot tell the name, cannot tell the year and the month. MUSCULOSKELETAL:No Clubbing/cyanosis;muscles-grossly intact. Evidence of OA multiple joints. Limited range of motion right hip. Some local tenderness INVESTIGATIONS, reviewed in the clinical context: CT right hip: No fracture White count 10.8 hemoglobin 10.6 platelets 173 sodium 127 potassium 4.5 creatinine 0.61 TSH 4.3 X-ray lumbar spine: Postsurgical changes without evidence of fracture X-ray hip right: No evidence of acute fracture. Remote left inferior pubic grams fracture. Assessment plan: -Right hip pain following fall. No fracture on x-ray. Patient having trouble moving the right hip.: Right inferior pubic rami fracture Computed tomography scan of the right hip shows nondisplaced right inferior pubic rami fracture. Otherwise hardware intact. No periprosthetic fracture. -Severe cognitive impairment. Late onset Alzheimer's dementia -Hypothyroid Synthroid 88 g -Hyperlipidemia Lipitor 20 mg daily at bedtime -Chronic nicotine dependence, cigarette smoker Nicotine patch -Hyponatremia, chronic Encourage oral intake -Mild protein calorie malnutrition Ensure -Chronic gait dysfunction Fall precautions -Primary osteoarthritis multiple joints including chronic low back pain,. Previous back surgery Tylenol as needed -DO NOT RESUSCITATE Disposition: Home with residential hospice Plan - Discharge Summary Discharge Rx Participant: Yes New Discharge Prescriptions: New Levothyroxine Sodium [Synthroid] 88 mcg PO DAILY@0600 #30 tab Acetaminophen Tab [Tylenol] 650 mg PO Q6HR PRN tab PRN Reason: Mild Pain Or Fever > 100.5 Lisinopril-Hctz 10-12.5 mg [Zestoretic 10-12.5] 1 each PO BID #60 tab Continue Multivit with Calcium,Iron,Min [Women's Multivitamin] 1 tab PO DAILY Atorvastatin [Lipitor] 20 mg PO HS #30 tab Aspirin EC [Ecotrin Low Dose] 81 mg PO HS Cholecalciferol [Vitamin D3 (25 Mcg = 1000 Iu)] 50 mcg PO DAILY Discontinued Levothyroxine Sodium [Synthroid] 75 mcg PO DAILY Discharge Medication List Multivit with Calcium,Iron,Min [Women's Multivitamin] 1 tab PO DAILY 10/22/17 [History] Aspirin EC [Ecotrin Low Dose] 81 mg PO HS 11/03/20 [History] Cholecalciferol [Vitamin D3 (25 Mcg = 1000 Iu)] 50 mcg PO DAILY 11/03/20 [History] Atorvastatin [Lipitor] 20 mg PO HS #30 tab 11/04/20 [Rx] Acetaminophen Tab [Tylenol] 650 mg PO Q6HR PRN tab 05/28/22 [Rx] Levothyroxine Sodium [Synthroid] 88 mcg PO DAILY@0600 #30 tab 05/28/22 [Rx] Lisinopril-Hctz 10-12.5 mg [Zestoretic 10-12.5] 1 each PO BID #60 tab 05/28/22 [Rx] Follow up Appointment(s)/Referral(s): Rudi Hope DO [Primary Care Provider] - 1 Week Residential Home,Health [NON-STAFF] - 1 Week Adolfo Mccauley DO [Doctor of Osteopathic Medicine] - As Needed Patient Instructions/Handouts: Levothyroxine (By mouth), Lisinopril/Hydrochlorothiazide (By mouth), Hospice (DC) Activity/Diet/Wound Care/Special Instructions: Heating Pad may be used as needed for pain relief. Discharge Disposition: HOME WITH HOSPICE
== END 2022-05-28 13:39 | disposition hospice, home (50) | DRG 536 ==
LOC: EC 18:40 → 5NMEDONC 21:02
PROVIDERS: ADMIT Hospitalist; ATTEND Hospitalist
DX: S32.591A Other specified fracture of right pubis, initial encounter for closed fracture (principal); E87.1 Hypo-osmolality and hyponatremia; Z96.643 Presence of artificial hip joint, bilateral; Z91.81 History of falling; I69.311 Memory deficit following cerebral infarction; Z66 Do not resuscitate; W19.XXXA Unspecified fall, initial encounter; E03.9 Hypothyroidism, unspecified; G89.29 Other chronic pain; M54.50 Low back pain, unspecified; F03.90 Unspecified dementia, unspecified severity, without behavioral disturbance, psychotic disturbance, mood disturbance, and anxiety; F17.210 Nicotine dependence, cigarettes, uncomplicated; F40.240 Claustrophobia; I25.2 Old myocardial infarction; Z79.890 Hormone replacement therapy; Z79.899 Other long term (current) drug therapy; Z88.1 Allergy status to other antibiotic agents
CPT/HCPCS: 36415; 72100; 73502; 80053; 84439; 84443; 84481; 85025; 94760; 96361; 96374; 99285